=== PATIENT | male | born 1960 | race Hispanic/Latino ===

== ENCOUNTER 2017-08-20 18:28 | Emergency (ER) | payer MEDICAID ==
[2017-08-20 18:34] VITALS: BMI 40.3
[2017-08-20 18:42] VITALS: TEMP 98.3
--- NOTE | 2017-08-20 19:19 | ED PDOC ---
Arrival/HPI - General Chief Complaint: Seizure Time Seen by Provider: 08/20/17 18:30 Historian: Patient, EMS - History of Present Illness Narrative History of Present Illness (Text): 08/20/17 19:07 A 56 year old male brought into the emergency department by EMS for evaluation after possible seizure. Patient was pushing a grocery cart and fell to the floor yellowing for help. Patient was found unresponsive on the ground and bystanders witnessed tonic clonic activity. Upon EMS arrival, patient was no longer shaking but appeared altered. On evaluation, patient is alert and oriented times 3. He remembers being at the grocery store and then waking up with people surrounding him. Patient currently denies any pain or discomfort. Patient denies any fever, chills, nausea, vomiting, abdominal pain, urinary symptoms, chest pain, shortness of breath, cough, headache, dizziness, weakness or any other complaints. Time/Duration: Prior to Arrival Symptom Course: Resolved Quality: Other Context: Other Past Medical History - Provider Review Nursing Documentation Reviewed: Yes - Infectious Disease Hx of Infectious Diseases: None - Tetanus Immunization Tetanus Immunization: Unknown - Cardiac Hx Cardiac Disorders: Yes Hx Peripheral Edema: Yes - Pulmonary Hx Respiratory Disorders: No (pt denies) - Neurological Hx Neurological Disorder: No (pt denies) - HEENT Hx HEENT Disorder: No (pt denies) - Renal Hx Renal Disorder: No (pt denies) - Endocrine/Metabolic Hx Endocrine Disorders: No (pt denies) - Hematological/Oncological Hx Blood Disorders: No (pt denies) - Integumentary Hx Dermatological Disorder: Yes Hx Psoriasis: Yes - Musculoskeletal/Rheumatological Hx Musculoskeletal Disorders: No (pt denies) - Gastrointestinal Hx Gastrointestinal Disorders: No (pt denies) - Genitourinary/Gynecological Hx Genitourinary Disorders: No (pt denies) - Psychiatric Hx Psychophysiologic Disorder: No (pt denies) Hx Depression: No Hx Emotional Abuse: No Hx Physical Abuse: No Hx Substance Use: No - Past Surgical History Past Surgical History: No Previous - Suicidal Assessment Feels Threatened In Home Enviroment: No Family/Social History - Physician Review Nursing Documentation Reviewed: Yes Family/Social History: No Known Family HX Smoking Status: Never Smoked Hx Alcohol Use: No Hx Substance Use: No Hx Substance Use Treatment: No Allergies/Home Meds Allergies/Adverse Reactions: Allergies No Known Allergies Allergy (Verified 08/20/17 18:33) Home Medications: Home Meds Medication Instructions Recorded Confirmed No Known Home Med 09/01/12 08/20/17 Review of Systems - Physician Review All systems were reviewed & negative as marked: Yes - Review of Systems Constitutional: absent: Fevers, Night Sweats Respiratory: absent: SOB, Cough Cardiovascular: absent: Chest Pain Gastrointestinal: absent: Abdominal Pain, Nausea, Vomiting Genitourinary Male: absent: Dysuria, Frequency, Hematuria Neurological: Seizure. absent: Headache, Dizziness, Focal Weakness Physical Exam Vital Signs Reviewed: Yes Vital Signs Temp Pulse Resp BP Pulse Ox 08/20/17 18:40 98.3 F 123 H 16 187/99 H 95 Temperature: Afebrile Blood Pressure: Hypertensive Pulse: Tachycardic Respiratory Rate: Normal Appearance: Positive for: Well-Appearing, Non-Toxic, Comfortable Pain Distress: None Mental Status: Positive for: Alert and Oriented X 3 Finger Stick Blood Glucose: 124 - Systems Exam Head: Present: Atraumatic, Normocephalic Pupils: Present: Other (Decrease vision in left eye) Extroacular Muscles: Present: EOMI Conjunctiva: Present: Normal Mouth: Present: Moist Mucous Membranes Neck: Present: Normal Range of Motion Respiratory/Chest: Present: Clear to Auscultation, Good Air Exchange. No: Respiratory Distress, Accessory Muscle Use Cardiovascular: Present: Regular Rate and Rhythm, Normal S1, S2. No: Murmurs Abdomen: Present: Normal Bowel Sounds. No: Tenderness, Distention, Peritoneal Signs Back: Present: Normal Inspection Upper Extremity: Present: Normal Inspection. No: Cyanosis, Edema Lower Extremity: Present: NORMAL PULSES, Other (Chronic lymphedematous venous stasis changes in LLE; venous stasis changes RLE). No: CALF TENDERNESS Neurological: Present: GCS=15, CN II-XII Intact, Speech Normal, Motor Func Grossly Intact, Normal Sensory Function, Normal Cerebellar Funct Skin: Present: Warm, Dry, Normal Color. No: Rashes Psychiatric: Present: Alert, Oriented x 3, Normal Insight, Normal Concentration Medical Decision Making ED Course and Treatment: 08/20/17 19:07 Impression: A 56 year old male brought in after possible seizure. Patient denies any complaints at this time. Plan: -- Head CT -- Duplex lower extremity ultrasound -- Chest xray -- Labs -- Urinalysis -- Reassess and disposition Progress Notes: 08/20/17 20:12 Spoke with radiologist, states ultrasound is negative for DVT. 08/20/17 21:47 Patient with syncope vs new onset seizure. Patient was adamantly refusing brain CT and CXR and any further treatment and workup in the ED. His labs show a AG metabolic acidosis with renal insufficiency, suggestive of possible seizure , which for him would be new onset or possible other cause. He is refusing any additional workup or treatment and is insistent to leave the emergency department at this time. His current vitals are normal. He is fully awake, alert, and oriented x 3 and fully understands the consequences of leaving against medical advice, including and permanent disability. He signed the ama sheet. - Lab Interpretations Lab Results: 08/20/17 18:50 08/20/17 18:50 Lab Results 08/20/17 20:58: PT 13.7 H, INR 1.25 H, APTT 31.3 08/20/17 18:50: Alcohol, Quantitative < 10 08/20/17 18:50: Sodium 142, Potassium 4.0, Chloride 107, Carbon Dioxide 14 L, Anion Gap 25 H, BUN 35 H, Creatinine 1.6 H, Est GFR ( Amer) 54, Est GFR ( Non-Af Amer) 45, Random Glucose 138 H, Calcium 9.1, Magnesium 2.3 H, Total Bilirubin 0.9, AST 66 H, ALT 47, Alkaline Phosphatase 165 H, Lactate Dehydrogenase 629, Total Creatine Kinase 229, Troponin I 0.01, Total Protein 9.6 H, Albumin 4.1, Globulin 5.4, Albumin/Globulin Ratio 0.8 L, Lipase 98 08/20/17 18:50: WBC 11.0, RBC 4.60, Hgb 16.0, Hct 46.6, MCV 101.3, MCH 34.8, MCHC 34.3, RDW 14.1, Plt Count 300, MPV 10.6, Gran % 59.5, Lymph % (Auto) 27.5, Nobles % (Auto) 12.1 H, Eos % (Auto) 0.6 L, Baso % (Auto) 0.3, Gran # 6.54 H, Lymph # 3.0, Nobles # 1.3 H, Eos # 0.1, Baso # 0.03 I have reviewed the lab results: Yes - RAD Interpretation Radiology Orders: 08/20/17 19:05 DUPLEX LOWER EXTRM VEIN BILAT [US] Stat - Medication Orders Current Medication Orders: Discontinued Medications Sodium Chloride (Sodium Chloride 0.9%) 1,000 mls @ 999 mls/hr IV .Q1H1M STA Stop: 08/20/17 20:51 Last Admin: 08/20/17 21:19 Dose: 999 mls/hr eMAR Start Stop Document 08/20/17 21:19 SS (Rec: 08/20/17 21:20 SS [id number]) Intravenous Solution Start Date 08/20/17 Start Time 21:19 End Date 08/20/17 End time 22:19 Total Infusion Time 60 - Scribe Statement The provider has reviewed the documentation as recorded by the Felisaibpriscilla Ware Provider Scribe Attestation: All medical record entries made by the Scribe were at my direction and personally dictated by me. I have reviewed the chart and agree that the record accurately reflects my personal performance of the history, physical exam, medical decision making, and the department course for this patient. I have also personally directed, reviewed, and agree with the discharge instructions and disposition. Disposition/Present on Arrival - Present on Arrival Any Indicators Present on Arrival: No History of DVT/PE: No History of Uncontrolled Diabetes: No Urinary Catheter: No History of Decub. Ulcer: No History Surgical Site Infection Following: None - Disposition Have Diagnosis and Disposition been Completed?: Yes Diagnosis: Syncope, Seizure, Renal insufficiency Disposition: AGAINST MEDICAL ADVICE Disposition Time: 22:00 Patient Plan: Other (against medical advice) Patient Problems: Current Active Problems Problem Status Onset Renal insufficiency Acute Seizure Acute Syncope Acute Condition: STABLE Discharge Instructions (ExitCare): Syncope (ED), Impaired Kidney Function (ED) , New-Onset Seizure in Adults (ED) Additional Instructions: You are leaving against medical advice. You may return to the emergency department at any time. If you choose not to do so, then follow up with primary care as soon as possible. Ref[place]: [facility] [place] - Follow up with primary Forms: [employer] (Swedish)
[2017-08-20 19:36] LABS: ALB/GLOB RATIO 0.8 (1.1-1.8); BILIRUBIN,TOTAL 0.9 mg/dL (0.2-1.3); CALCIUM 9.1 mg/dL (8.4-10.5); MAGNESIUM 2.3 mg/dL (1.7-2.2); TOTAL PROTEIN 9.6 g/dL (5.8-8.3)
[2017-08-20 19:50] LABS: BASO # 0.03 K/mm3 (0.0-2.0); BASO % 0.3 % (0.0-3.0); EOS # 0.1 (0.0-0.7); EOS % 0.6 % (1.5-5.0); GRAN # 6.54 (1.4-6.5); GRAN % 59.5 % (50.0-68.0); HEMATOCRIT 46.6 % (42.0-52.0); LYMPH % 27.5 % (22.0-35.0); MEAN CELL VOLUME 101.3 fl (80.0-105.0); MEAN CORPUSCULAR HEMOGLOBIN 34.8 pg (25.0-35.0); MEAN CORPUSCULAR HGB CONC 34.3 g/dl (31.0-37.0); MEAN PLATELET VOLUME 10.6 fl (7.0-11.0); MONO # 1.3 (0.1-0.6); MONO % 12.1 % (1.0-6.0); RED CELL DISTRIBUTION WIDTH 14.1 % (11.5-14.5)
[2017-08-20 19:57] LABS: TROPONIN I 0.01 ng/mL
[2017-08-20] MEDS: Sodium Chloride 0.9% 1,000 ML IV STA ×2 (21:06→21:19)
[2017-08-20 21:17] LABS: INR 1.25 (0.93-1.08); PARTIAL THROMBOPLASTIN TIME 31.3 Seconds (25.1-36.5)
[2017-08-20 22:26] LABS: URINE BILIRUBIN NEGATIVE (NEGATIVE); URINE BLOOD TRACE-INTACT (NEGATIVE); URINE GLUCOSE (UA) NEGATIVE (NEGATIVE); URINE KETONE NEGATIVE (NEGATIVE); URINE LEUKOCYTE ESTERASE NEGATIVE Leu/uL (NEGATIVE); URINE PROTEIN TRACE mg/dL (<30 mg/dL); URINE UROBILINOGEN 0.2 E.U./dL (<1 E.U./dL)
[2017-08-20 22:29] LABS: URINE APPEARANCE CLEAR (CLEAR); URINE COLOR YELLOW (YELLOW)
[2017-08-20 22:38] LABS: URINE BACTERIA MOD (NEG)
[2017-08-20 22:52] VITALS: BP 146/80; PULSE 82; RESP 18; O2SAT 96
--- NOTE | 2017-08-21 10:51 | CARD ---
APPROVED REPORT EKG Measurement Heart [id number] <Conclusion> Sinus tachycardia Incomplete right bundle branch block Cannot rule out Inferior infarct, age undetermined NSSSTW changes Prolonged QTc
--- NOTE | 2017-08-21 17:46 | US ---
HISTORY: Leg pain and swelling. Evaluate for DVT PHYSICIAN(S): Joey Rubin MD. TECHNIQUE: Duplex sonography and color-flow Doppler with graded compression were used to evaluate the deep venous systems of both lower extremities. The exam is limited by edema. FINDINGS: The visualized deep venous systems of both lower extremities are sonographically normal and compressible. Normal wave forms and augmentation are seen. There is no sonographic evidence for deep venous thrombosis in the visualized segments of both lower extremities. IMPRESSION: No sonographic evidence for deep venous thrombosis in the visualized segments of both lower extremities.
== END 2017-08-20 23:00 | disposition left against medical advice (07) ==
LOC: ED 18:28
DX: R56.9 Unspecified convulsions (principal); N28.9 Disorder of kidney and ureter, unspecified; R55 Syncope and collapse
CPT/HCPCS: 80053; 80320; 80324; 80345; 80346; 80349; 80353; 80358; 80361; 81001; 82550; 83615; 83690; 83735; 83992; 84484; 85025; 85610; 85730; 93005; 93970; 96360; 99285; J7040

== ENCOUNTER 2019-01-21 11:53 | Inpatient (IN) | payer MEDICAID ==
[2019-01-21 11:55] VITALS: BMI 40.3
--- NOTE | 2019-01-21 13:41 | ED PDOC ---
Arrival/HPI - General Chief Complaint: Seizure Time Seen by Provider: 01/21/19 12:09 Historian: Patient, Family - History of Present Illness Narrative History of Present Illness (Text): 01/21/19 13:20 58 year old male, with past medical history of seizure (non-compliant with medication), presents to the ED accompanied by family for medical evaluation s/p witnessed seizure at home prior to arrival. As per brother, patient was sitting in a chair when he began convulsing for 3-4 minutes causing him to fall from the chair. Brother denies any head injury or loss of consciousness. Patient presented post-ictal state following the episode but is currently at baseline as per family. At bedside, patient denies any medical complaints and does not provide any reason for non-compliance with his seizure medication. Patient denies any fever, chest pain, shortness of breath, headache, dizziness or any other complaints. Time/Duration: Prior to Arrival Symptom Onset: Sudden Symptom Course: Resolved Activities at Onset: Light Context: Home Past Medical History - Provider Review Nursing Documentation Reviewed: Yes - Infectious Disease Hx of Infectious Diseases: None - Tetanus Immunization Tetanus Immunization: Unknown - Cardiac Hx Cardiac Disorders: Yes Hx Peripheral Edema: Yes - Pulmonary Hx Respiratory Disorders: No (pt denies) - Neurological Hx Neurological Disorder: No (pt denies) Hx Seizures: Yes - HEENT Hx HEENT Disorder: No (pt denies) - Renal Hx Renal Disorder: No (pt denies) - Endocrine/Metabolic Hx Endocrine Disorders: No (pt denies) - Hematological/Oncological Hx Blood Disorders: No (pt denies) - Integumentary Hx Dermatological Disorder: Yes Hx Psoriasis: Yes - Musculoskeletal/Rheumatological Hx Musculoskeletal Disorders: No (pt denies) - Gastrointestinal Hx Gastrointestinal Disorders: No (pt denies) - Genitourinary/Gynecological Hx Genitourinary Disorders: No (pt denies) - Psychiatric Hx Depression: No Hx Emotional Abuse: No Hx Physical Abuse: No Hx Schizophrenia: Yes Hx Substance Use: No - Past Surgical History Past Surgical History: No Previous - Anesthesia Hx Anesthesia: No - Suicidal Assessment Feels Threatened In Home Enviroment: No Family/Social History - Physician Review Nursing Documentation Reviewed: Yes Family/Social History: No Known Family HX Smoking Status: Never Smoked Hx Alcohol Use: No Hx Substance Use: No Hx Substance Use Treatment: No Allergies/Home Meds Allergies/Adverse Reactions: Allergies No Known Allergies Allergy (Verified 01/21/19 12:07) Home Medications: Home Meds Medication Instructions Recorded Confirmed No Known Home Med 09/01/12 01/21/19 Review of Systems - Physician Review All systems were reviewed & negative as marked: Yes - Review of Systems Constitutional: absent: Fevers Respiratory: absent: SOB, Cough Cardiovascular: absent: Chest Pain Gastrointestinal: absent: Abdominal Pain, Diarrhea, Nausea, Vomiting Genitourinary Male: absent: Dysuria, Urinary Output Changes Musculoskeletal: absent: Back Pain, Neck Pain Neurological: Seizure. absent: Headache, Dizziness Endocrine: absent: Diaphoresis Physical Exam - Physical Exam Narrative Physical Exam (Text): 01/21/19 13:42 Gen: VS reviewed, alert, dishevelled, mild distress. ENT: normal pharynx. Eye: EOMI, PERRL. Neck: no JVD, supple, no adenopathy. CV: regular rate, regular rhythm, no rubs, no murmur, no gallops, S1, S2, pulses equal and strong. Pulm: no distress, clear to auscultation, no wheeze, no rhonchi, breath sounds equal, no rales. Abd: soft, nontender, no guarding, no rebound, no rigidity, normal bowel sounds. Ext: Chronic lymphedema bilateral lower extremity with scales , underlying redness and foul odor from the area. Skin: Chronic lymphedema bilateral lower extremity. Psych: responds appropriately to questions, normal affect. Neuro: oriented x 3, CN2-12 intact grossly, motor intact, sensation intact. Vital Signs Reviewed: Yes Vital Signs Temp Pulse Resp BP Pulse Ox 01/21/19 11:55 98 F 113 H 18 162/61 H 94 L Temperature: Afebrile Blood Pressure: Hypertensive Pulse: Tachycardic Respiratory Rate: Normal Appearance: Positive for: Well-Appearing, Non-Toxic, Comfortable Pain Distress: None Mental Status: Positive for: Alert and Oriented X 3 Medical Decision Making ED Course and Treatment: 01/21/19 13:38 Impression: 58 year old male presents to the ED for evaluation s/p seizure. Plan: -- Labs -- Reassess and disposition Prior Visits: Notes and results from previous visits were reviewed. Progress Notes: 01/21/19 13:[address] Duque, who is aware and will evaluate patient for consultation. 01/21/19 17:[address] loo to the hospitalist service. patient to be admitted for bilateral lower extremity cellulitis. patient also presented with a breakthrough seizure, likely from not taking medications (which was confirmed by family at bedside). patient was seen in the ED by dr. sanders and agreed that the patient lacks mental capacity to make informed medical decisions. the patient did not want o stay in the hospital, he did not provide good reasoning for his request, and this contradicts the patient's severe underlying illness that requires acute inpt tx. - EKG Interpretation EKG Interpretation (Text): 01/21/19 17:21 ekg my read: sinus tach at 107 bpm, nml qrs, nml axis, no acute sttw abn Interpreted by ED Physician: Yes - Scribe Statement The provider has reviewed the documentation as recorded by the Scribe Edd Wolfe. All medical record entries made by the Scribe were at my direction and personally dictated by me. I have reviewed the chart and agree that the record accurately reflects my personal performance of the history, physical exam, medical decision making, and the department course for this patient. I have also personally directed, reviewed, and agree with the discharge instructions and disposition. Disposition/Present on Arrival - Present on Arrival Any Indicators Present on Arrival: No History of DVT/PE: No History of Uncontrolled Diabetes: No Urinary Catheter: No History of Decub. Ulcer: No History Surgical Site Infection Following: None - Disposition Have Diagnosis and Disposition been Completed?: Yes Diagnosis: Cellulitis Disposition: HOSPITALIZED Disposition Time: 17:45 Patient Problems: Current Active Problems Problem Status Onset Cellulitis Acute Condition: GUARDED
[2019-01-21] MEDS ORDERED: Vancomycin 500 mg Inj IVPB STA (14:31)
[2019-01-21] MEDS ORDERED: Piperacillin/Tazobact 3.375 gm 100 ML IVPB STA (14:31)
[2019-01-21] MEDS ORDERED: Vancomycin 1.75 GM in Sodium Chloride 0.9% 500 ML IVPB ONE (14:45)
[2019-01-21 14:59] LABS: BASO # 0.05 K/mm3 (0.0-2.0); BASO % 0.5 % (0.0-3.0); EOS # 0.9 (0.0-0.7); EOS % 7.9 % (1.5-5.0); HEMOGLOBIN 13.8 g/dL (14.0-18.0); LYMPH # 3.4 (1.2-3.4); LYMPH % 31.1 % (22.0-35.0); MEAN CELL VOLUME 96.1 fl (80.0-105.0); MEAN CORPUSCULAR HEMOGLOBIN 31.8 pg (25.0-35.0); MEAN CORPUSCULAR HGB CONC 33.1 g/dl (31.0-37.0); MEAN PLATELET VOLUME 9.9 fl (7.0-11.0); MONO # 1.1 (0.1-0.6); MONO % 10.5 % (1.0-6.0); RBC 4.34 10^6/uL (3.5-6.1); RED CELL DISTRIBUTION WIDTH 15.9 % (11.5-14.5); WHITE BLOOD COUNT 10.8 10^3/uL (4.5-11.0)
[2019-01-21 15:33] LABS: ALB/GLOB RATIO 0.6 (1.1-1.8); ALBUMIN 3.2 g/dL (3.0-4.8); ALT/SGPT 13 U/L (7-56); AST/SGOT 29 U/L (17-59); BLOOD UREA NITROGEN 45 mg/dL (7-21); CALCIUM 8.8 mg/dL (8.4-10.5); GFR NON-AFRICAN AMERICAN > 60
[2019-01-21 17:55] LABS: BARBITURATES, UR NEGATIVE (NEGATIVE); BENZODIAZEPINES, UR NEGATIVE (NEGATIVE); OPIATES, UR NEGATIVE (NEGATIVE); PHENCYCLIDINE, UR NEGATIVE (NEGATIVE)
--- NOTE | 2019-01-21 18:50 | CON ---
DATE OF CONSULTATION: 01/21/2019 HISTORY OF PRESENT ILLNESS: In short, the patient is a 58-year-old male with not known previous psychiatric history, questionable history of schizophrenia. The patient was brought in by EMS after the patient's family called 911 because the patient had some seizure activities. During the emergency room evaluation, the patient was found to have severe lower extremity cellulitis, which required medical admission, but the patient refused to stay in the hospital. Medical team called this policy writer for evaluation of the capacity to leave against medical advice. This policy writer had a prolonged conversation with Dr. Callejas in the emergency room. Also, the patient's family next to the patient is expressing highest concerns about the patient's safety. Going back to the patient's presentation, the patient was seen and examined. The patient presented to be disheveled, poor personal hygiene, very strong body odor. On top of that, the patient has multiple wounds and seborrhea in lower extremities and pus coming out, which smells horrible. The patient was alert, oriented x3. The patient had intense eye contact. The patient seems to be a poor and unreliable historian and appears to be guarded and paranoid. The patient reported that he came to the hospital because of some seizure activities. The patient denied that he has history of seizure, and the patient reported that after drinking coffee or eating certain foods, he could have seizures. The patient reported that he was not taking any medication for seizures. In regard of his lower extremities, the patient said that he has seen ship propeller finisher a few days ago, and he is willing to take antibiotics by mouth, but he does not want to stay in the hospital. On questioning what was his reason for refusing to stay in the hospital, the patient said, "isn't it my right, I am willing to take my medications, but I am not willing to stay in the hospital." Based on information from the medical team, there is no option to provide the patient with oral antibiotics, and the patient required admission for intravenous antibiotics. The patient was not able to comprehend this plan. The patient was repeating himself that this is his right to sign against medical advice. After detailed explanation of rationale of the decision and risk of sepsis as well as sudden explained to the patient, the patient still was insisting that he does not want to stay in the hospital. The patient obviously lacks rational decision making at this point. The patient also was not able to understand factual diagnosis, potential risk of leaving against medical advice, and consequences without the treatment. The patient was repeating "I will be alright, I will be alright." The patient has very poor insight and no appreciation. The patient was able to indicate his preferences. The patient reported that he wants to go back home and follow up as outpatient, but it does not seem to be very rational at this point. The patient's family, the patient's brother as well as sister, Mary Gordillo as well as Hasmukh Gordillo, are next to the patient. The patient did not give permission this policy writer to disclose any information about the patient, but the patient's family expressed highest concerns about the patient's safety. As per family, the patient was diagnosed with schizophrenia and was hospitalized into the psychiatric inpatient unit about 20 years ago. The patient was functioning relatively fine, but recently he was refusing any care and refusing to go to the medical doctors as well as [facility], and it took awhile for family to convince the patient to go to [facility], but the patient is not compliant with recommendations and treatment. At this point, the patient's family is very concerned about the patient. Also, the patient was saying that he does not care if he is alive or he is . The patient is not on any psychotropic medications at present moment, and functionality is very questionable. The patient is not bathing for many days and has very strong body odor. PHYSICAL EXAMINATION: VITAL SIGNS: At this point, this policy writer reviewed vital signs, seemed to be stable, but the patient is tachycardic. Temperature is 98, pulse is 105, blood pressure 147/82, respirations 18, oxygen saturation is 95. MEDICATIONS: Reviewed. The patient is on vancomycin IV. LABORATORY DATA: Labs reviewed. The patient has hemoglobin and hematocrit of 13.8 and 41.7. Chemistry reviewed. Microbiology reviewed. MENTAL STATUS EXAMINATION: The patient presented to be alert, oriented x3, very poor personal hygiene, very strong body odor. Intense eye contact. Speech was underproductive, was giving "yes-no" answers. The patient appears to be guarded, paranoid, and reluctant to provide any information. Mood described as "fine". Affect was flat. Thought process seems to be concrete. Thought content, the patient denied hearing voices, denied seeing things. Denied paranoid ideation, but the patient appears to be guarded and paranoid. Insight and judgment seemed to be very limited. Impulses are unpredictable. IMPRESSION: As per history, schizophrenia. At present moment, the patient has severe lower extremity cellulitis, history of ?seizure disorder. PLAN: Based on all the above, the patient lacks capacity of understanding factual diagnosis, treatment, potential risk and consequences of leaving against medical advice. Insight and appreciation are lacking, reasoning ability is very poor. The patient was able to indicate the preferences which are not rationale at this point. The patient lacks decision making capacity of leaving against medical advice. Medical team was advised to admit the patient and treat accordingly. Meanwhile, this policy writer could be involved into the patient's care as a packaging sales consultant, but this is up to the medical team. Should you have any questions give me a call back. Thank you very much for letting me participate in care of your patient. Care of the patient took more than 30 minutes of this policy writer's time. Odilia Duque MD [facility]
--- NOTE | 2019-01-21 18:50 | RAD ---
Date of service: 01/21/2019 PROCEDURE: Radiographs of the right tibia and fibula. HISTORY: cellulitis, subcutaneous air? COMPARISON: None available TECHNIQUE: Frontal and lateral views obtained. 2 views obtained. FINDINGS: BONES: Degenerative changes right knee are incompletely visualized. JOINT SPACES: Unremarkable. OTHER FINDINGS: Radiographic manifestations of cellulitis distally. Diffuse calf edema noted. No visible air within soft tissues. IMPRESSION: Soft tissue swelling without acute articular or osseous abnormality.
--- NOTE | 2019-01-21 18:51 | RAD ---
Date of service: 01/21/2019 PROCEDURE: Radiographs of the left tibia and fibula. HISTORY: cellulitis, subcutaneous air? COMPARISON: None available. TECHNIQUE: Frontal and lateral views obtained. 2 views obtained. FINDINGS: BONES: No radiographic manifestations of acute osteomyelitis. JOINT SPACES: Unremarkable. OTHER FINDINGS: Diffuse lower extremity soft tissue swelling. Evidence of ulceration distally. No adjacent bony abnormalities. The findings are medial and posterior. No visible subcutaneous air. IMPRESSION: Soft tissue swelling without acute articular or osseous abnormality.
--- NOTE | 2019-01-21 18:56 | CP.PCM.HP ---
<Elder Morton - Last Filed: 01/21/19 18:49> History of Present Illness - History of Present Illness History of Present Illness: Elder Morton, PGY1 Medicine H&P for Dr. Barger cc: "witnessed seizure" Patient is a 58 year old male with past medical history of schizophrenia, seizure (non-compliant with medication), psoriasis, umbilical hernia, obesity presents to the ED accompanied by family for medical evaluation s/p witnessed seizure at home prior to arrival. As per family, patient was convulsing for 3-5 minutes while he was sitting in chair, he then fell. There was no injury to head or loss of consciousness as per family. Patient initially presented post-ictal in the ED. As per family, he is currently at baseline. Patient is a poor historian. History was mainly obtained from family members at bedside. Patient denies cp, sob, nausea, vomiting, diarrhea. A full 12 point ROS was conducted and unremarkable except as stated above. PMD: none PMHx: schizophrenia, seizure (non-compliant with medication), psoriasis, umbilical hernia, obesity PSHx: denies Meds: none Allergies: NKDA SocialHx: denies smoking, drinking, drug use. FamHx: non-contributory Present on Admission - Present on Admission Any Indicators Present on Admission: No Review of Systems - Review of Systems All systems: reviewed and no additional remarkable complaints except (as per HPI) Past Patient History - Infectious Disease Hx of Infectious Diseases: None - Tetanus Immunizations Tetanus Immunization: Unknown - Past Social History Smoking Status: Never Smoked - CARDIAC Hx Cardiac Disorders: Yes Hx Peripheral Edema: Yes - PULMONARY Hx Respiratory Disorders: No (pt denies) - NEUROLOGICAL Hx Neurological Disorder: No (pt denies) Hx Seizures: Yes - HEENT Hx HEENT Problems: No (pt denies) - RENAL Hx Chronic Kidney Disease: No (pt denies) - ENDOCRINE/METABOLIC Hx Endocrine Disorders: No (pt denies) - HEMATOLOGICAL/ONCOLOGICAL Hx Blood Disorders: No (pt denies) - INTEGUMENTARY Hx Dermatological Problems: Yes Hx Psoriasis: Yes - MUSCULOSKELETAL/RHEUMATOLOGICAL Hx Musculoskeletal Disorders: No (pt denies) - GASTROINTESTINAL Hx Gastrointestinal Disorders: No (pt denies) - GENITOURINARY/GYNECOLOGICAL Hx Genitourinary Disorders: No (pt denies) - PSYCHIATRIC Hx Depression: No Hx Emotional Abuse: No Hx Physical Abuse: No Hx Schizophrenia: Yes Hx Substance Use: No - SURGICAL HISTORY Hx Surgeries: No (pt denies) - ANESTHESIA Hx Anesthesia: No Meds Allergies/Adverse Reactions: Allergies Allergy/AdvReac Type Severity Reaction Status Date / Time No Known Allergies Allergy Verified 01/21/19 12:07 Physical Exam - Constitutional Appears: No Acute Distress - Head Exam Head Exam: ATRAUMATIC, NORMAL INSPECTION, NORMOCEPHALIC - Eye Exam Eye Exam: PERRL. absent: Normal appearance Additional comments: Chronic lazy eye - ENT Exam ENT Exam: Mucous Membranes Moist - Respiratory Exam Respiratory Exam: Clear to Auscultation Bilateral, NORMAL BREATHING PATTERN. absent: Rales, Rhonchi, Wheezes - Cardiovascular Exam Cardiovascular Exam: REGULAR RHYTHM, +S1, +S2 - GI/Abdominal Exam GI & Abdominal Exam: Normal Bowel Sounds, Soft. absent: Tenderness Additional comments: Umbilical hernia - Extremities Exam Extremities exam: Positive for: pedal pulses present (Diminished). Negative for: normal capillary refill Additional comments: Severe scaly bilateral LE dermatitis. Open ulcerations in both lower legs. Dressing in place. - Neurological Exam Neurological exam: Alert, CN II-XII Intact, Oriented x3 - Psychiatric Exam Psychiatric exam: Normal Affect, Normal Mood Additional comments: Patient does not have full capacity. - Skin Additional comments: Severe scaly dermatitis in bilateral lower extremities. Open ulcers present in lower extremities b/l. Evidence of psoriatic lesions. Results - Vital Signs Recent Vital Signs: Last Vital Signs Temp 98.3 F 01/21/19 18:17 Pulse 102 H 01/21/19 18:17 Resp 17 01/21/19 18:17 BP 148/81 01/21/19 18:17 Pulse Ox 95 01/21/19 18:17 - Labs Result Diagrams: 01/21/19 14:40 01/21/19 15:00 Labs: Laboratory Results - last 24 hr 01/21/19 01/21/19 01/21/19 14:40 15:00 15:00 WBC 10.8 RBC 4.34 Hgb 13.8 L D Hct 41.7 L MCV 96.1 D MCH 31.8 MCHC 33.1 RDW 15.9 H Plt Count 454 H MPV 9.9 Neut % (Auto) 50.0 Lymph % (Auto) 31.1 [place] % (Auto) 10.5 H Eos % (Auto) 7.9 H Baso % (Auto) 0.5 Lymph # (Auto) 3.4 [place] # (Auto) 1.1 H Eos # (Auto) 0.9 H Baso # (Auto) 0.05 Absolute Neuts (auto) 5.39 Sodium 141 Potassium 4.0 Chloride 110 H Carbon Dioxide 21 Anion Gap 14 BUN 45 H Creatinine 1.2 Est GFR ( Amer) > 60 Est GFR (Non-Af Amer) > 60 Random Glucose 111 H Calcium 8.8 Magnesium 2.2 Total Bilirubin 0.1 L AST 29 ALT 13 Alkaline Phosphatase 147 H Total Creatine Kinase 41 Total Protein 9.0 H Albumin 3.2 Globulin 5.7 Albumin/Globulin Ratio 0.6 L Urine Opiates Screen Urine Methadone Screen Ur Barbiturates Screen Ur Phencyclidine Scrn Ur Amphetamines Screen U Benzodiazepines Scrn U Oth Cocaine Metabols U Cannabinoids Screen Alcohol, Quantitative < 10 01/21/19 17:21 WBC RBC Hgb Hct MCV MCH MCHC RDW Plt Count MPV Neut % (Auto) Lymph % (Auto) [place] % (Auto) Eos % (Auto) Baso % (Auto) Lymph # (Auto) [place] # (Auto) Eos # (Auto) Baso # (Auto) Absolute Neuts (auto) Sodium Potassium Chloride Carbon Dioxide Anion Gap BUN Creatinine Est GFR ( Amer) Est GFR (Non-Af Amer) Random Glucose Calcium Magnesium Total Bilirubin AST ALT Alkaline Phosphatase Total Creatine Kinase Total Protein Albumin Globulin Albumin/Globulin Ratio Urine Opiates Screen Negative Urine Methadone Screen Negative Ur Barbiturates Screen Negative Ur Phencyclidine Scrn Negative Ur Amphetamines Screen Negative U Benzodiazepines Scrn Negative U Oth Cocaine Metabols Negative U Cannabinoids Screen Negative Alcohol, Quantitative Assessment & Plan - Assessment and Plan (Free Text) Assessment: Patient is a 58 year old male with past medical history of schizophrenia, seizure (non-compliant with medication), psoriasis, umbilical hernia, obesity presents to the ED accompanied by family for medical evaluation s/p witnessed seizure at home prior to arrival. Patient admitted for Seizures and Bilateral Lower Extremity Cellulitis and Ulcerations. Plan: Seizure - Patient refused Head CT - Ativan 2mg q4 prn - neurochecks - seizure precautions - aspiration precautions - Neurology on consult (Dr. Turner) - Urine drug screen negative - EtOH level negative Bilateral Lower Extremity Cellulitis/Ulcerations - r/o osteo - tibula/fibula XR bilateral - left and right foot XR - LE venous doppler - LE arterial doppler - vanco and zosyn for broad spectrum coverage - f/u blood cx - Podiatry on consult (Dr. Hernandez) - ID on consult (Dr. Orona) Schizophrenia - Psych is on consult (Dr. Hartley) - Patient wants to AMA but lacks capacity DVT ppx: hep sc GI ppx: not indicated Diet: Regular Dispo: Patient will be monitored on remote telemetry. Case was discussed and reviewed with Attending Physician, Dr. Barger <Agustin Barger - Last Filed: 01/22/19 07:53> Results - Vital Signs Recent Vital Signs: Last Vital Signs Temp 98.3 F 01/21/19 18:17 Pulse 74 01/22/19 06:00 Resp 12 01/21/19 18:50 BP 148/81 01/21/19 18:17 Pulse Ox 95 01/21/19 18:17 - Labs Result Diagrams: 01/22/19 06:25 01/22/19 06:25 Labs: Laboratory Results - last 24 hr 01/21/19 01/21/19 01/21/19 14:40 15:00 15:00 WBC 10.8 RBC 4.34 Hgb 13.8 L D Hct 41.7 L MCV 96.1 D MCH 31.8 MCHC 33.1 RDW 15.9 H Plt Count 454 H MPV 9.9 Neut % (Auto) 50.0 Lymph % (Auto) 31.1 [place] % (Auto) 10.5 H Eos % (Auto) 7.9 H Baso % (Auto) 0.5 Lymph # (Auto) 3.4 [place] # (Auto) 1.1 H Eos # (Auto) 0.9 H Baso # (Auto) 0.05 Absolute Neuts (auto) 5.39 ESR Sodium 141 Potassium 4.0 Chloride 110 H Carbon Dioxide 21 Anion Gap 14 BUN 45 H Creatinine 1.2 Est GFR ( Amer) > 60 Est GFR (Non-Af Amer) > 60 Random Glucose 111 H Calcium 8.8 Magnesium 2.2 Total Bilirubin 0.1 L AST 29 ALT 13 Alkaline Phosphatase 147 H Total Creatine Kinase 41 C-Reactive Protein Total Protein 9.0 H Albumin 3.2 Globulin 5.7 Albumin/Globulin Ratio 0.6 L Urine Opiates Screen Urine Methadone Screen Ur Barbiturates Screen Ur Phencyclidine Scrn Ur Amphetamines Screen U Benzodiazepines Scrn U Oth Cocaine Metabols U Cannabinoids Screen Alcohol, Quantitative < 10 01/21/19 01/21/19 01/21/19 15:00 15:00 17:21 WBC RBC Hgb Hct MCV MCH MCHC RDW Plt Count MPV Neut % (Auto) Lymph % (Auto) [place] % (Auto) Eos % (Auto) Baso % (Auto) Lymph # (Auto) [place] # (Auto) Eos # (Auto) Baso # (Auto) Absolute Neuts (auto) ESR 3 Sodium Potassium Chloride Carbon Dioxide Anion Gap BUN Creatinine Est GFR ( Amer) Est GFR (Non-Af Amer) Random Glucose Calcium Magnesium Total Bilirubin AST ALT Alkaline Phosphatase Total Creatine Kinase C-Reactive Protein 51.40 H Total Protein Albumin Globulin Albumin/Globulin Ratio Urine Opiates Screen Negative Urine Methadone Screen Negative Ur Barbiturates Screen Negative Ur Phencyclidine Scrn Negative Ur Amphetamines Screen Negative U Benzodiazepines Scrn Negative U Oth Cocaine Metabols Negative U Cannabinoids Screen Negative Alcohol, Quantitative 01/22/19 01/22/19 06:25 06:25 WBC 7.4 D RBC 4.01 Hgb 12.5 L Hct 38.3 L MCV 95.5 MCH 31.2 MCHC 32.6 RDW 16.1 H Plt Count 386 MPV 9.4 Neut % (Auto) 66.5 Lymph % (Auto) 18.2 L [place] % (Auto) 10.6 H Eos % (Auto) 4.3 Baso % (Auto) 0.4 Lymph # (Auto) 1.3 [place] # (Auto) 0.8 H Eos # (Auto) 0.3 Baso # (Auto) 0.03 Absolute Neuts (auto) 4.91 ESR Sodium 145 Potassium 3.7 Chloride 115 H Carbon Dioxide 23 Anion Gap 11 BUN 29 H Creatinine 1.1 Est GFR ( Amer) > 60 Est GFR (Non-Af Amer) > 60 Random Glucose 99 Calcium 8.6 Magnesium Total Bilirubin 0.3 AST 47 ALT 19 Alkaline Phosphatase 114 Total Creatine Kinase C-Reactive Protein Total Protein 8.3 Albumin 2.9 L Globulin 5.4 Albumin/Globulin Ratio 0.5 L Urine Opiates Screen Urine Methadone Screen Ur Barbiturates Screen Ur Phencyclidine Scrn Ur Amphetamines Screen U Benzodiazepines Scrn U Oth Cocaine Metabols U Cannabinoids Screen Alcohol, Quantitative Attending/Attestation - Attestation I have personally seen and examined this patient.: Yes I have fully participated in the care of the patient.: Yes I have reviewed all pertinent clinical information: Yes Notes (Text): 01/21/19 58 year old male with past medical history of schizophrenia, seizure, psoriasis and medication noncompliance who presents after witnessed seizure at home. Found also to have extensive bilateral lower extremity ulcerations and cellulitis overlying chronic chronic venous statis. ID/podiatry evaluations are requested. Bilateral tibula/fibula xrays showed soft tissue swelling. Feet xray and LE dopplers are ordered. Continue with iv antibiotics. Will follow up on cultures. Patient will also need neurology and psychiatry evaluation. He was seen by psychiatrist in ER for schizophrenia; at this time lacks decision making capacity 9f signing out against medical advice. CT head is ordered which he refused. UTox/ETOH levels were negative. Patient's siblings were also at bedside and questions were answered. Agustin Barger MD Hospitalist.
--- NOTE | 2019-01-21 20:06 | US ---
HISTORY: Leg pain and swelling. Evaluate for DVT PHYSICIAN(S): Joey Rubin MD. TECHNIQUE: Duplex sonography and color-flow Doppler with graded compression were used to evaluate the deep venous systems of both lower extremities. M is limited by body habitus and edema. The tibial veins are not well seen FINDINGS: The visualized deep venous systems of both lower extremities are sonographically normal and compressible. Normal wave forms and augmentation are seen. There is no sonographic evidence for deep venous thrombosis in the visualized segments of both lower extremities. IMPRESSION: No sonographic evidence for deep venous thrombosis in the visualized segments of both lower extremities.
[2019-01-21] MEDS ORDERED: Piperacillin/Tazobact 3.375 gm 100 ML IVPB SCH (22:00)
[2019-01-21] MEDS: Vancomycin 1gm in NS 250ml 1 GM/250 ML BAG IVPB SCH (23:23)
[2019-01-21] MEDS: Piperacillin/Tazobact 3.375 gm 100 ML IVPB SCH (23:26)
[2019-01-22] MEDS: Piperacillin/Tazobact 3.375 gm 100 ML IVPB SCH ×3 (05:13→22:29)
[2019-01-22 06:45] LABS: BASO # 0.03 K/mm3 (0.0-2.0); BASO % 0.4 % (0.0-3.0); EOS # 0.3 (0.0-0.7); EOS % 4.3 % (1.5-5.0); HEMOGLOBIN 12.5 g/dL (14.0-18.0); LYMPH # 1.3 (1.2-3.4); LYMPH % 18.2 % (22.0-35.0); MEAN CELL VOLUME 95.5 fl (80.0-105.0); MEAN CORPUSCULAR HEMOGLOBIN 31.2 pg (25.0-35.0); MEAN CORPUSCULAR HGB CONC 32.6 g/dl (31.0-37.0); MEAN PLATELET VOLUME 9.4 fl (7.0-11.0); MONO # 0.8 (0.1-0.6); MONO % 10.6 % (1.0-6.0); RBC 4.01 10^6/uL (3.5-6.1); RED CELL DISTRIBUTION WIDTH 16.1 % (11.5-14.5); WHITE BLOOD COUNT 7.4 10^3/uL (4.5-11.0)
[2019-01-22 07:33] LABS: ALB/GLOB RATIO 0.5 (1.1-1.8); ALBUMIN 2.9 g/dL (3.0-4.8); ALT/SGPT 19 U/L (7-56); AST/SGOT 47 U/L (17-59); BLOOD UREA NITROGEN 29 mg/dL (7-21); CALCIUM 8.6 mg/dL (8.4-10.5); GFR NON-AFRICAN AMERICAN > 60
--- NOTE | 2019-01-22 08:44 | CP.PCM.PN ---
<Elder Morton - Last Filed: 01/22/19 14:11> Subjective - Date & Time of Evaluation Date of Evaluation: 01/22/19 Time of Evaluation: 08:00 - Subjective Subjective: Elder Morton PGY1 Medicine Progress Note for Dr. Barger Patient seen and examined at bedside this morning. No adverse overnight events. Patient denies headache, fever, chills, n/v/d, chest pain, sob. He does not have pain in his legs. He is AAOx3 but lacks capacity. A full 12 point ROS was conducted and unremarkable except as stated above. Objective - Vital Signs/Intake and Output Vital Signs (last 24 hours): Temp Pulse Resp BP Pulse Ox 98.3 F 74 12 148/81 95 01/21/19 18:17 01/22/19 06:00 01/21/19 18:50 01/21/19 18:17 01/21/19 18:17 Intake and Output: 01/22/19 01/22/19 06:59 18:59 Intake Total 300 Output Total 200 Balance 100 - Medications Medications: Current Medications Heparin Sodium (Porcine) (Heparin) 5,000 units SC Q8 EMELY; Protocol Last Admin: 01/22/19 05:12 Dose: 5,000 units Vancomycin HCl (Vancomycin 1gm) 1 gm in 250 mls @ 167 mls/hr IVPB Q12 EMELY; Protocol Last Admin: 01/21/19 23:23 Dose: 167 mls/hr Piperacillin Sod/Tazobactam Sod (Zosyn 3.375 In Ns 100ml) 100 mls @ 25 mls/hr IVPB Q8 EMELY; Protocol Stop: 01/28/19 22:01 Last Admin: 01/22/19 05:13 Dose: 25 mls/hr Lorazepam (Ativan) 2 mg IVP Q4H PRN; Protocol PRN Reason: Seizure activity - Labs Labs: 01/22/19 06:25 01/22/19 06:25 - Constitutional Appears: No Acute Distress - Head Exam Head Exam: ATRAUMATIC, NORMAL INSPECTION, NORMOCEPHALIC - Eye Exam Eye Exam: PERRL. absent: Normal appearance Additional comments: Chronic lazy eye - ENT Exam ENT Exam: Mucous Membranes Moist - Respiratory Exam Respiratory Exam: Clear to Auscultation Bilateral, NORMAL BREATHING PATTERN. absent: Rales, Rhonchi, Wheezes - Cardiovascular Exam Cardiovascular Exam: REGULAR RHYTHM, +S1, +S2 - GI/Abdominal Exam GI & Abdominal Exam: Normal Bowel Sounds, Soft. absent: Tenderness Additional comments: Umbilical hernia - Extremities Exam Extremities exam: Positive for: pedal pulses present (Diminished). Negative for: normal capillary refill Additional comments: Severe scaly bilateral LE dermatitis. Open ulcerations in both lower legs with left foot ulcer with fluctuation. Dressing in place bilaterally by wound care. Sensation intact to bilateral distal lower ext. - Neurological Exam Neurological exam: Alert, CN II-XII Intact, Oriented x3 - Psychiatric Exam Psychiatric exam: Normal Affect, Normal Mood Additional comments: Patient does not have full capacity. Assessment and Plan - Assessment and Plan (Free Text) Assessment: Patient is a 58 year old male with past medical history of schizophrenia, seizure (non-compliant with medication), psoriasis, umbilical hernia, obesity presents to the ED accompanied by family for medical evaluation s/p witnessed seizure at home prior to arrival. Patient admitted for Seizures and Bilateral Lower Extremity Cellulitis and Ulcerations in the setting of chronic venous stasis. Plan: Seizure - Patient refused Head CT - explained the importance of the imaging - c/w Ativan 2mg q4 prn for seizures - f/u EEG results - c/w neurochecks, seizure precautions, and aspiration precautions - Neurology on consult (Dr. Turner) - Urine drug screen negative - EtOH level negative Bilateral Lower Extremity Cellulitis/Ulcerations - left and right foot XR: pending official read - LE arterial doppler: pending - tibula/fibula XR bilateral: soft tissue swelling without acute articular/osseous abnormalities. - LE venous doppler: no DVT - c/w vanco and zosyn for broad spectrum coverage - f/u blood cx - Wound care is on board - Podiatry on consult (Dr. Hernandez) - ID on consult (Dr. Orona). Recs appreciated. Schizophrenia - Psych is on consult (Dr. Hartley). Recs appreciated. - Patient wants to AMA but lacks capacity DVT ppx: hep sc GI ppx: not indicated Diet: Regular Dispo: Patient will be monitored on remote telemetry. Pending imaging and further recs from neuro and podiatry. Case was discussed and reviewed with Attending Physician, Dr. Barger <Agustin Barger - Last Filed: 01/22/19 15:51> Objective - Vital Signs/Intake and Output Vital Signs (last 24 hours): Temp Pulse Resp BP Pulse Ox 98.0 F 84 20 146/81 94 L 01/22/19 06:00 01/22/19 14:00 01/22/19 06:00 01/22/19 06:00 01/22/19 06:00 Intake and Output: 01/22/19 01/22/19 06:59 18:59 Intake Total 300 Output Total 200 Balance 100 - Medications Medications: Current Medications Betamethasone/Clotrimazole (Lotrisone) 0 gm TOP BID EMELY Divalproex Sodium (Depakote Dr(*Bid*)) 500 mg PO BID EMELY; Protocol Heparin Sodium (Porcine) (Heparin) 5,000 units SC Q8 EMELY; Protocol Last Admin: 01/22/19 14:38 Dose: 5,000 units Vancomycin HCl (Vancomycin 1gm) 1 gm in 250 mls @ 167 mls/hr IVPB Q12 EMELY; Protocol Last Admin: 01/22/19 09:52 Dose: 167 mls/hr Piperacillin Sod/Tazobactam Sod (Zosyn 3.375 In Ns 100ml) 100 mls @ 25 mls/hr IVPB Q8 EMELY; Protocol Stop: 01/28/19 22:01 Last Admin: 01/22/19 14:39 Dose: 25 mls/hr Lorazepam (Ativan) 2 mg IVP Q4H PRN; Protocol PRN Reason: Seizure activity - Labs Labs: 01/22/19 06:25 01/22/19 06:25 Attending/Attestation - Attestation I have personally seen and examined this patient.: Yes I have fully participated in the care of the patient.: Yes I have reviewed all pertinent clinical information, including history, physical exam and plan: Yes Notes (Text): 01/22/19 15:48 58 year old male with past medical history of schizophrenia, seizure, psoriasis and medication noncompliance who presented after witnessed seizure at home. Fou nd also to have extensive bilateral lower extremity ulcerations and cellulitis overlying chronic chronic venous statis. ID/podiatry evaluations were appreciated. Bilateral tibula/fibula xrays showed soft tissue swelling. Feet xray were reviewed as well. LE doppler negative for DVT. Arterial doppler is pending. Continue with iv antibiotics. Will follow up on cultures. Patient will also be seen by neurology for seizure disorder. EEG is ordered. He refused CT head yesterday. Psychiatry evaluation was appreciated yesterday; patient lacks decision making capacity of signing out against medical advice. Agustin Barger MD Hospitalist.
--- NOTE | 2019-01-22 08:52 | CARD ---
APPROVED REPORT Date of service: 01/21/2019 EKG Measurement Heart [id number] <Conclusion> Sinus tachycardia Clockwise Rotation.
[2019-01-22] MEDS: Vancomycin 1gm in NS 250ml 1 GM/250 ML BAG IVPB SCH ×2 (09:52→22:29)
[2019-01-22] MEDS ORDERED: Vancomycin 1gm in NS 250ml 1 GM/250 ML BAG IVPB SCH (10:00)
--- NOTE | 2019-01-22 12:24 | CP.PCM.CON ---
<Castro Finney - Last Filed: 01/22/19 12:18> History of Present Illness - History of Present Illness History of Present Illness: Podiatry consult note - Drs. Estrada/David 58M seen and evaluated this AM with Dr. Estraad for b/l LE ulcerations and xerotic/scaling legs. States his legs have looked like this for 3 months and the wounds developed around the same time. States he sees a spray painting machine operator for his legs on [address] in [place] and his legs are wrapped there. Denies pain to his legs but reports mild discomfort. States he walks most of the day when he is not in the hospital. Denies n/v/f/c/sob today and has no other pedal complaints. PMHx: schizophrenia, seizure (non-compliant with medication), psoriasis, umbilical hernia, obesity PSHx: denies All: NKDA Past Patient History - Infectious Disease Hx of Infectious Diseases: None - Tetanus Immunizations Tetanus Immunization: Unknown - Past Social History Smoking Status: Never Smoked - CARDIAC Hx Cardiac Disorders: Yes Hx Peripheral Edema: Yes - PULMONARY Hx Respiratory Disorders: No (pt denies) - NEUROLOGICAL Hx Neurological Disorder: No (pt denies) Hx Seizures: Yes - HEENT Hx HEENT Problems: No (pt denies) - RENAL Hx Chronic Kidney Disease: No (pt denies) - ENDOCRINE/METABOLIC Hx Endocrine Disorders: No (pt denies) - HEMATOLOGICAL/ONCOLOGICAL Hx Blood Disorders: No (pt denies) - INTEGUMENTARY Hx Dermatological Problems: Yes Hx Psoriasis: Yes - MUSCULOSKELETAL/RHEUMATOLOGICAL Hx Musculoskeletal Disorders: No (pt denies) - GASTROINTESTINAL Hx Gastrointestinal Disorders: No (pt denies) - GENITOURINARY/GYNECOLOGICAL Hx Genitourinary Disorders: No (pt denies) - PSYCHIATRIC Hx Depression: No Hx Emotional Abuse: No Hx Physical Abuse: No Hx Schizophrenia: Yes Hx Substance Use: No - SURGICAL HISTORY Hx Surgeries: No (pt denies) - ANESTHESIA Hx Anesthesia: No Meds Allergies/Adverse Reactions: Allergies Allergy/AdvReac Type Severity Reaction Status Date / Time No Known Allergies Allergy Verified 01/21/19 12:07 - Medications Medications: Current Medications Betamethasone/Clotrimazole (Lotrisone) 10 gm TOP BID EMELY Heparin Sodium (Porcine) (Heparin) 5,000 units SC Q8 EMELY; Protocol Last Admin: 01/22/19 05:12 Dose: 5,000 units Vancomycin HCl (Vancomycin 1gm) 1 gm in 250 mls @ 167 mls/hr IVPB Q12 [facility]; Protocol Last Admin: 01/22/19 09:52 Dose: 167 mls/hr Piperacillin Sod/Tazobactam Sod (Zosyn 3.375 In Ns 100ml) 100 mls @ 25 mls/hr IVPB Q8 [facility]; Protocol Stop: 01/28/19 22:01 Last Admin: 01/22/19 05:13 Dose: 25 mls/hr Lorazepam (Ativan) 2 mg IVP Q4H PRN; Protocol PRN Reason: Seizure activity Physical Exam - Constitutional Appears: Non-toxic - Head Exam Head Exam: ATRAUMATIC - Extremities Exam Additional comments: B/l LE focused VASC: DP and PT pulses non palpable 2/2 moderate edema (L>R); cap refill <3 seconds to all digits; temp gradient warm to warm; pedal hairgrowth absent DERM: LLE=medial leg wound measuring 6 x 5 x 0.2cm with granular base, hyperkeratotic rim, no probe to bone, mild malodor, no streaking appreciated; scaling and xerosis present from psoriasis; RLE=medial malleolar wound measuring 1 x 1 x 0.1cm with granular base appreciated, no probe, no streaking, no malodor or drainage noted; psoriasis present as well but not as severe ORTHO: no pain on palpation to wounds b/l; midfoot collapse noted L>R NEURO: gross and protective sensation diminished b/l - Neurological Exam Neurological exam: Alert, Oriented x3 - Psychiatric Exam Psychiatric exam: Normal Affect Results - Vital Signs Recent Vital Signs: Last Vital Signs Temp 98.0 F 01/22/19 06:00 Pulse 69 01/22/19 06:00 Resp 20 01/22/19 06:00 BP 146/81 01/22/19 06:00 Pulse Ox 94 L 01/22/19 06:00 - Labs Result Diagrams: 01/22/19 06:25 01/22/19 06:25 Labs: Laboratory Results - last 24 hr 01/21/19 01/21/19 01/21/19 14:40 15:00 15:00 WBC 10.8 RBC 4.34 Hgb 13.8 L D Hct 41.7 L MCV 96.1 D MCH 31.8 MCHC 33.1 RDW 15.9 H Plt Count 454 H MPV 9.9 Neut % (Auto) 50.0 Lymph % (Auto) 31.1 Barnes % (Auto) 10.5 H Eos % (Auto) 7.9 H Baso % (Auto) 0.5 Lymph # (Auto) 3.4 Barnes # (Auto) 1.1 H Eos # (Auto) 0.9 H Baso # (Auto) 0.05 Absolute Neuts (auto) 5.39 ESR Sodium 141 Potassium 4.0 Chloride 110 H Carbon Dioxide 21 Anion Gap 14 BUN 45 H Creatinine 1.2 Est GFR ( Amer) > 60 Est GFR (Non-Af Amer) > 60 Random Glucose 111 H Calcium 8.8 Magnesium 2.2 Total Bilirubin 0.1 L AST 29 ALT 13 Alkaline Phosphatase 147 H Total Creatine Kinase 41 C-Reactive Protein Total Protein 9.0 H Albumin 3.2 Globulin 5.7 Albumin/Globulin Ratio 0.6 L Urine Opiates Screen Urine Methadone Screen Ur Barbiturates Screen Ur Phencyclidine Scrn Ur Amphetamines Screen U Benzodiazepines Scrn U Oth Cocaine Metabols U Cannabinoids Screen Alcohol, Quantitative < 10 01/21/19 01/21/19 01/21/19 15:00 15:00 17:21 WBC RBC Hgb Hct MCV MCH MCHC RDW Plt Count MPV Neut % (Auto) Lymph % (Auto) Barnes % (Auto) Eos % (Auto) Baso % (Auto) Lymph # (Auto) Barnes # (Auto) Eos # (Auto) Baso # (Auto) Absolute Neuts (auto) ESR 3 Sodium Potassium Chloride Carbon Dioxide Anion Gap BUN Creatinine Est GFR ( Amer) Est GFR (Non-Af Amer) Random Glucose Calcium Magnesium Total Bilirubin AST ALT Alkaline Phosphatase Total Creatine Kinase C-Reactive Protein 51.40 H Total Protein Albumin Globulin Albumin/Globulin Ratio Urine Opiates Screen Negative Urine Methadone Screen Negative Ur Barbiturates Screen Negative Ur Phencyclidine Scrn Negative Ur Amphetamines Screen Negative U Benzodiazepines Scrn Negative U Oth Cocaine Metabols Negative U Cannabinoids Screen Negative Alcohol, Quantitative 01/22/19 01/22/19 06:25 06:25 WBC 7.4 D RBC 4.01 Hgb 12.5 L Hct 38.3 L MCV 95.5 MCH 31.2 MCHC 32.6 RDW 16.1 H Plt Count 386 MPV 9.4 Neut % (Auto) 66.5 Lymph % (Auto) 18.2 L Barnes % (Auto) 10.6 H Eos % (Auto) 4.3 Baso % (Auto) 0.4 Lymph # (Auto) 1.3 Barnes # (Auto) 0.8 H Eos # (Auto) 0.3 Baso # (Auto) 0.03 Absolute Neuts (auto) 4.91 ESR Sodium 145 Potassium 3.7 Chloride 115 H Carbon Dioxide 23 Anion Gap 11 BUN 29 H Creatinine 1.1 Est GFR ( Amer) > 60 Est GFR (Non-Af Amer) > 60 Random Glucose 99 Calcium 8.6 Magnesium Total Bilirubin 0.3 AST 47 ALT 19 Alkaline Phosphatase 114 Total Creatine Kinase C-Reactive Protein Total Protein 8.3 Albumin 2.9 L Globulin 5.4 Albumin/Globulin Ratio 0.5 L Urine Opiates Screen Urine Methadone Screen Ur Barbiturates Screen Ur Phencyclidine Scrn Ur Amphetamines Screen U Benzodiazepines Scrn U Oth Cocaine Metabols U Cannabinoids Screen Alcohol, Quantitative Assessment & Plan - Assessment and Plan (Free Text) Assessment: 58M with b/l stasis ulcerations and psoriasis Plan: Patient seen and evaluated with Dr. Estrada VSS, absent leukocytosis Wounds cleansed with sterile saline and dressed with maxorb, xeroform, dry sterile dressing and TREMAYNE Wound culture ordered - pending B/l tib/fib x-rays ordered - pending Surgical shoes ordered to be worn when ambulating Continue medication per medicine Upon d/c to f/u with Dr. Hernandez/Sean in wound center as outpatient Will continue to follow Thank you for the consult - Date & Time Date: 01/22/19 Time: 12:26 <Emir Estrada - Last Filed: 01/22/19 13:40> Meds - Medications Medications: Current Medications Betamethasone/Clotrimazole (Lotrisone) 0 gm TOP BID EMELY Divalproex Sodium (Mikael Em(*Bid*)) 500 mg PO BID EMELY; Protocol Heparin Sodium (Porcine) (Heparin) 5,000 units SC Q8 [facility]; Protocol Last Admin: 01/22/19 05:12 Dose: 5,000 units Vancomycin HCl (Vancomycin 1gm) 1 gm in 250 mls @ 167 mls/hr IVPB Q12 [facility]; Protocol Last Admin: 01/22/19 09:52 Dose: 167 mls/hr Piperacillin Sod/Tazobactam Sod (Zosyn 3.375 In Ns 100ml) 100 mls @ 25 mls/hr IVPB Q8 [facility]; Protocol Stop: 01/28/19 22:01 Last Admin: 01/22/19 05:13 Dose: 25 mls/hr Lorazepam (Ativan) 2 mg IVP Q4H PRN; Protocol PRN Reason: Seizure activity Results - Vital Signs Recent Vital Signs: Last Vital Signs Temp 98.0 F 01/22/19 06:00 Pulse 75 01/22/19 10:00 Resp 20 01/22/19 06:00 BP 146/81 01/22/19 06:00 Pulse Ox 94 L 01/22/19 06:00 - Labs Result Diagrams: 01/22/19 06:25 01/22/19 06:25 Labs: Laboratory Results - last 24 hr 01/21/19 01/21/19 01/21/19 14:40 15:00 15:00 WBC 10.8 RBC 4.34 Hgb 13.8 L D Hct 41.7 L MCV 96.1 D MCH 31.8 MCHC 33.1 RDW 15.9 H Plt Count 454 H MPV 9.9 Neut % (Auto) 50.0 Lymph % (Auto) 31.1 Barnes % (Auto) 10.5 H Eos % (Auto) 7.9 H Baso % (Auto) 0.5 Lymph # (Auto) 3.4 Barnes # (Auto) 1.1 H Eos # (Auto) 0.9 H Baso # (Auto) 0.05 Absolute Neuts (auto) 5.39 ESR Sodium 141 Potassium 4.0 Chloride 110 H Carbon Dioxide 21 Anion Gap 14 BUN 45 H Creatinine 1.2 Est GFR ( Amer) > 60 Est GFR (Non-Af Amer) > 60 Random Glucose 111 H Calcium 8.8 Magnesium 2.2 Total Bilirubin 0.1 L AST 29 ALT 13 Alkaline Phosphatase 147 H Total Creatine Kinase 41 C-Reactive Protein Total Protein 9.0 H Albumin 3.2 Globulin 5.7 Albumin/Globulin Ratio 0.6 L Urine Opiates Screen Urine Methadone Screen Ur Barbiturates Screen Ur Phencyclidine Scrn Ur Amphetamines Screen U Benzodiazepines Scrn U Oth Cocaine Metabols U Cannabinoids Screen Alcohol, Quantitative < 10 01/21/19 01/21/19 01/21/19 15:00 15:00 17:21 WBC RBC Hgb Hct MCV MCH MCHC RDW Plt Count MPV Neut % (Auto) Lymph % (Auto) Barnes % (Auto) Eos % (Auto) Baso % (Auto) Lymph # (Auto) Barnes # (Auto) Eos # (Auto) Baso # (Auto) Absolute Neuts (auto) ESR 3 Sodium Potassium Chloride Carbon Dioxide Anion Gap BUN Creatinine Est GFR ( Amer) Est GFR (Non-Af Amer) Random Glucose Calcium Magnesium Total Bilirubin AST ALT Alkaline Phosphatase Total Creatine Kinase C-Reactive Protein 51.40 H Total Protein Albumin Globulin Albumin/Globulin Ratio Urine Opiates Screen Negative Urine Methadone Screen Negative Ur Barbiturates Screen Negative Ur Phencyclidine Scrn Negative Ur Amphetamines Screen Negative U Benzodiazepines Scrn Negative U Oth Cocaine Metabols Negative U Cannabinoids Screen Negative Alcohol, Quantitative 01/22/19 01/22/19 06:25 06:25 WBC 7.4 D RBC 4.01 Hgb 12.5 L Hct 38.3 L MCV 95.5 MCH 31.2 MCHC 32.6 RDW 16.1 H Plt Count 386 MPV 9.4 Neut % (Auto) 66.5 Lymph % (Auto) 18.2 L Barnes % (Auto) 10.6 H Eos % (Auto) 4.3 Baso % (Auto) 0.4 Lymph # (Auto) 1.3 Barnes # (Auto) 0.8 H Eos # (Auto) 0.3 Baso # (Auto) 0.03 Absolute Neuts (auto) 4.91 ESR Sodium 145 Potassium 3.7 Chloride 115 H Carbon Dioxide 23 Anion Gap 11 BUN 29 H Creatinine 1.1 Est GFR ( Amer) > 60 Est GFR (Non-Af Amer) > 60 Random Glucose 99 Calcium 8.6 Magnesium Total Bilirubin 0.3 AST 47 ALT 19 Alkaline Phosphatase 114 Total Creatine Kinase C-Reactive Protein Total Protein 8.3 Albumin 2.9 L Globulin 5.4 Albumin/Globulin Ratio 0.5 L Urine Opiates Screen Urine Methadone Screen Ur Barbiturates Screen Ur Phencyclidine Scrn Ur Amphetamines Screen U Benzodiazepines Scrn U Oth Cocaine Metabols U Cannabinoids Screen Alcohol, Quantitative Attending/Attestation - Attestation I have personally seen and examined this patient.: Yes I have fully participated in the care of the patient.: Yes I have reviewed all pertinent clinical information: Yes
--- NOTE | 2019-01-22 12:24 | RAD ---
Date of service: 01/22/2019 PROCEDURE: Bilateral Feet Radiographs. HISTORY: r/o osteo; gas gangrene COMPARISON: None. TECHNIQUE: 6 views obtained. FINDINGS: BONES: Right Foot: Normal. No fracture. Left Foot: Normal. No fracture. JOINTS: Right Foot: There is severe flattening of the plantar arch Left Foot: There is severe flattening of the plantar arch bilaterally SOFT TISSUES: Right Foot: Normal. Left Foot: Normal. OTHER FINDINGS: None. IMPRESSION: There is severe flattening of the plantar arch bilaterally No evidence of osteomyelitis or a gas-forming infection
--- NOTE | 2019-01-22 15:23 | CON ---
DATE OF CONSULTATION: 01/22/2019 The patient is seen in room 364, bed 1. The patient is in bed. CHIEF COMPLAINT: Lower extremity erythema times several days. HISTORY OF PRESENT ILLNESS: This is a 58-year-old male with morbid obesity, BMI of 40, with psoriasis, seizures, schizophrenia, who has chronic lower extremity changes, now it is worse in the last several weeks, low-grade fevers. No chills. No nausea. No vomiting. REVIEW OF SYSTEMS: Twelve-point review of systems is performed. PAST MEDICAL HISTORY: Significant for psoriasis, seizures, morbid obesity, BMI of 40, and schizophrenia. PAST SURGICAL HISTORY: The patient denies any operations. ALLERGIES: THE PATIENT HAS NO KNOWN ALLERGIES. MEDICATIONS: Medications at home reveals the patient to have no medications at home. PHYSICAL EXAMINATION: GENERAL: The patient is in bed, appears much older than his stated age, somewhat disheveled, and however, answering questions appropriately. VITAL SIGNS: Temperature of 98, blood pressure is 146/70, respiratory rate is 20, heart rate of 113. HEENT: Examination of HEENT is unremarkable. NECK: Supple. LUNGS: Have decreased breath sounds. HEART: Normal S1, S2. ABDOMEN: Soft, nontender. No rebound or guarding. EXTREMITIES: Examination of extremities reveals the left leg with erythema, warm to touch and discharge, and pulses are intact. Right leg has chronic changes, but no evidence of any acute changes. LABORATORY DATA: Laboratory examination reveals a white count of 10,000, hemoglobin of 13, platelets of 454. Sed rate is 3. BUN of 45, creatinine of 1.2. A C-reactive protein is 51. Microbiology is pending. The patient had an x-ray of the tibia and fibula done yesterday, which revealed no evidence of any AR soft tissue, foreign bodies. Also had an x-ray of the tibia and fibula of the left leg, which shows diffuse edema and evidence of ulceration on x-ray is noted. No bony abnormalities. An ultrasound of the lower extremities reveals no evidence of DVT. ASSESSMENT AND PLAN: He is a 58-year-old male with psoriasis, seizures, morbid obesity, body mass index of 40 and schizophrenia with; 1. Left leg cellulitis, probable staph versus mixed organisms. We will order an HIV test because of his age. We will order hemoglobin A1c because of an elevated blood sugar and collect blood cultures, wound cultures. Podiatry consult and Vascular consultation for vascular workup, LISA's, and we will make further recommendations upon the availability of initial results. Hasmukh Lopez MD
--- NOTE | 2019-01-22 16:16 | CP.PCM.CON ---
<Bryon Chaudhry - Last Filed: 01/22/19 16:16> History of Present Illness - History of Present Illness History of Present Illness: Bryon Chaudhry PGY2 Neurology Consult Note for Dr. Turner Consult Requested by: Dr. Barger 58 year old male with past medical history of schizophrenia, seizure (non-compliant with medication), psoriasis, umbilical hernia, obesity presented to the ED for witnessed seizure at home prior to arrival. Patient is poor historian but says he did blackout. States last seizure was in 2009 and has not been taking any seizure medications since. History obtained from family in ED s [facility] patient was convulsing for 3-5 minutes while he was sitting in chair, he then fell. There was no injury to head or loss of consciousness as per family. Patient denies cp, sob, nausea, vomiting, diarrhea, headaches, numbness, tingling, change in vision or any other complaints at this time. PMD: none PMHx: schizophrenia, seizure (non-compliant with medication), psoriasis, umbilical hernia, obesity PSHx: denies Meds: none Allergies: NKDA SocialHx: denies smoking, drinking, drug use. FamHx: non-contributory Review of Systems - Constitutional Constitutional: absent: Headache, Weakness - Neurological Neurological: Weakness. absent: Confusion, Numbness, Frequent Falls, Headaches, Lack of Coordination, Loss of Vision, Paresthesias, Radicular Pain, Syncope, Tingling, Vertigo Past Patient History - Infectious Disease Hx of Infectious Diseases: None - Tetanus Immunizations Tetanus Immunization: Unknown - Past Social History Smoking Status: Never Smoked - CARDIAC Hx Cardiac Disorders: Yes Hx Peripheral Edema: Yes - PULMONARY Hx Respiratory Disorders: No (pt denies) - NEUROLOGICAL Hx Neurological Disorder: No (pt denies) Hx Seizures: Yes - HEENT Hx HEENT Problems: No (pt denies) - RENAL Hx Chronic Kidney Disease: No (pt denies) - ENDOCRINE/METABOLIC Hx Endocrine Disorders: No (pt denies) - HEMATOLOGICAL/ONCOLOGICAL Hx Blood Disorders: No (pt denies) - INTEGUMENTARY Hx Dermatological Problems: Yes Hx Psoriasis: Yes - MUSCULOSKELETAL/RHEUMATOLOGICAL Hx Musculoskeletal Disorders: No (pt denies) - GASTROINTESTINAL Hx Gastrointestinal Disorders: No (pt denies) - GENITOURINARY/GYNECOLOGICAL Hx Genitourinary Disorders: No (pt denies) - PSYCHIATRIC Hx Depression: No Hx Emotional Abuse: No Hx Physical Abuse: No Hx Schizophrenia: Yes Hx Substance Use: No - SURGICAL HISTORY Hx Surgeries: No (pt denies) - ANESTHESIA Hx Anesthesia: No Meds Allergies/Adverse Reactions: Allergies Allergy/AdvReac Type Severity Reaction Status Date / Time No Known Allergies Allergy Verified 01/21/19 12:07 - Medications Medications: Current Medications Betamethasone/Clotrimazole (Lotrisone) 0 gm TOP BID EMELY Divalproex Sodium (Depakote Dr(*Bid*)) 500 mg PO BID [facility]; Protocol Heparin Sodium (Porcine) (Heparin) 5,000 units SC Q8 [facility]; Protocol Last Admin: 01/22/19 14:38 Dose: 5,000 units Vancomycin HCl (Vancomycin 1gm) 1 gm in 250 mls @ 167 mls/hr IVPB Q12 [facility]; Protocol Last Admin: 01/22/19 09:52 Dose: 167 mls/hr Piperacillin Sod/Tazobactam Sod (Zosyn 3.375 In Ns 100ml) 100 mls @ 25 mls/hr IVPB Q8 [facility]; Protocol Stop: 01/28/19 22:01 Last Admin: 01/22/19 14:39 Dose: 25 mls/hr Lorazepam (Ativan) 2 mg IVP Q4H PRN; Protocol PRN Reason: Seizure activity Physical Exam - Constitutional Appears: No Acute Distress - Head Exam Head Exam: ATRAUMATIC, NORMAL INSPECTION, NORMOCEPHALIC - Eye Exam Eye Exam: EOMI, PERRL - Respiratory Exam Respiratory Exam: Clear to Auscultation Bilateral, NORMAL BREATHING PATTERN - Cardiovascular Exam Cardiovascular Exam: REGULAR RHYTHM - GI/Abdominal Exam GI & Abdominal Exam: Normal Bowel Sounds, Soft - Extremities Exam Extremities exam: Positive for: pedal pulses present - Neurological Exam Neurological exam: Alert, CN II-XII Intact, Oriented x3, Reflexes Normal Results - Vital Signs Recent Vital Signs: Last Vital Signs Temp 98.0 F 01/22/19 06:00 Pulse 84 01/22/19 14:00 Resp 20 01/22/19 06:00 BP 146/81 01/22/19 06:00 Pulse Ox 94 L 01/22/19 06:00 - Labs Result Diagrams: 01/22/19 06:25 01/22/19 06:25 Labs: Laboratory Results - last 24 hr 01/21/19 01/21/19 01/21/19 15:00 15:00 15:00 WBC RBC Hgb Hct MCV MCH MCHC RDW Plt Count MPV Neut % (Auto) Lymph % (Auto) Grundy % (Auto) Eos % (Auto) Baso % (Auto) Lymph # (Auto) [place]undy # (Auto) Eos # (Auto) Baso # (Auto) Absolute Neuts (auto) ESR 3 Sodium Potassium Chloride Carbon Dioxide Anion Gap BUN Creatinine Est GFR ( Amer) Est GFR (Non-Af Amer) Random Glucose Calcium Total Bilirubin AST ALT Alkaline Phosphatase C-Reactive Protein 51.40 H Total Protein Albumin Globulin Albumin/Globulin Ratio Urine Opiates Screen Urine Methadone Screen Ur Barbiturates Screen Ur Phencyclidine Scrn Ur Amphetamines Screen U Benzodiazepines Scrn U Oth Cocaine Metabols U Cannabinoids Screen Alcohol, Quantitative < 10 01/21/19 01/22/19 01/22/19 17:21 06:25 06:25 WBC 7.4 D RBC 4.01 Hgb 12.5 L Hct 38.3 L MCV 95.5 MCH 31.2 MCHC 32.6 RDW 16.1 H Plt Count 386 MPV 9.4 Neut % (Auto) 66.5 Lymph % (Auto) 18.2 L [place]undy % (Auto) 10.6 H Eos % (Auto) 4.3 Baso % (Auto) 0.4 Lymph # (Auto) 1.3 [place]undy # (Auto) 0.8 H Eos # (Auto) 0.3 Baso # (Auto) 0.03 Absolute Neuts (auto) 4.91 ESR Sodium 145 Potassium 3.7 Chloride 115 H Carbon Dioxide 23 Anion Gap 11 BUN 29 H Creatinine 1.1 Est GFR ( Amer) > 60 Est GFR (Non-Af Amer) > 60 Random Glucose 99 Calcium 8.6 Total Bilirubin 0.3 AST 47 ALT 19 Alkaline Phosphatase 114 C-Reactive Protein Total Protein 8.3 Albumin 2.9 L Globulin 5.4 Albumin/Globulin Ratio 0.5 L Urine Opiates Screen Negative Urine Methadone Screen Negative Ur Barbiturates Screen Negative Ur Phencyclidine Scrn Negative Ur Amphetamines Screen Negative U Benzodiazepines Scrn Negative U Oth Cocaine Metabols Negative U Cannabinoids Screen Negative Alcohol, Quantitative Assessment & Plan - Assessment and Plan (Free Text) Plan: Seizure -past history of seizures -EEG pending -patient refused CT head due to radiation concerns -depakote [id number] -follow up outpatient <Gianluca Turner - Last Filed: 01/24/19 21:11> Meds - Medications Medications: Current Medications Betamethasone/Clotrimazole (Lotrisone) 0 gm TOP BID EMELY Last Admin: 01/24/19 18:37 Dose: Not Given Divalproex Sodium (Depakote Dr(*Bid*)) 500 mg PO BID [facility]; Protocol Last Admin: 01/24/19 18:36 Dose: Not Given Heparin Sodium (Porcine) (Heparin) 5,000 units SC Q8 [facility]; Protocol Last Admin: 01/24/19 13:36 Dose: 5,000 units Vancomycin HCl (Vancomycin 1gm) 1 gm in 250 mls @ 167 mls/hr IVPB Q12 [facility]; Protocol Last Admin: 01/24/19 09:44 Dose: 167 mls/hr Piperacillin Sod/Tazobactam Sod (Zosyn 3.375 In Ns 100ml) 100 mls @ 25 mls/hr IVPB Q8 [facility]; Protocol Stop: 01/28/19 22:01 Last Admin: 01/24/19 13:36 Dose: 25 mls/hr Lorazepam (Ativan) 2 mg IVP Q4H PRN; Protocol PRN Reason: Seizure activity Results - Vital Signs Recent Vital Signs: Last Vital Signs Temp 97.9 F 01/24/19 06:00 Pulse 88 01/24/19 14:00 Resp 20 01/24/19 06:00 BP 150/94 H 01/24/19 06:00 Pulse Ox 94 L 01/24/19 06:00 - Labs Result Diagrams: 01/24/19 06:30 01/24/19 06:30 Labs: Laboratory Results - last 24 hr 01/23/19 01/24/19 01/24/19 07:00 06:30 06:30 WBC 7.7 D RBC 4.32 Hgb 13.6 L Hct 41.3 L MCV 95.6 MCH 31.5 MCHC 32.9 RDW 15.8 H Plt Count 330 MPV 9.7 Neut % (Auto) 51.8 Lymph % (Auto) 22.8 [place]undy % (Auto) 16.9 H Eos % (Auto) 8.2 H Baso % (Auto) 0.3 Lymph # (Auto) 1.8 [place]undy # (Auto) 1.3 H Eos # (Auto) 0.6 Baso # (Auto) 0.02 Absolute Neuts (auto) 3.98 ESR Sodium 144 Potassium 4.0 Chloride 111 H Carbon Dioxide 24 Anion Gap 13 BUN 16 Creatinine 0.9 Est GFR ( Amer) > 60 Est GFR (Non-Af Amer) > 60 Random Glucose 88 Hemoglobin A1c 5.5 Calcium 8.8 Total Bilirubin 0.5 AST 47 ALT 35 Alkaline Phosphatase 128 H Total Protein 8.4 H Albumin 2.9 L Globulin 5.5 Albumin/Globulin Ratio 0.5 L 01/24/19 06:30 WBC RBC Hgb Hct MCV MCH MCHC RDW Plt Count MPV Neut % (Auto) Lymph % (Auto) [place]undy % (Auto) Eos % (Auto) Baso % (Auto) Lymph # (Auto) [place]undy # (Auto) Eos # (Auto) Baso # (Auto) Absolute Neuts (auto) ESR 112 H Sodium Potassium Chloride Carbon Dioxide Anion Gap BUN Creatinine Est GFR ( Amer) Est GFR (Non-Af Amer) Random Glucose Hemoglobin A1c Calcium Total Bilirubin AST ALT Alkaline Phosphatase Total Protein Albumin Globulin Albumin/Globulin Ratio Attending/Attestation - Attestation I have personally seen and examined this patient.: Yes I have fully participated in the care of the patient.: Yes I have reviewed all pertinent clinical information: Yes Notes (Text): I agree with the assessment and plan. Will resume seizure medication.
[2019-01-22] MEDS: Clotrimazole/Betamethasone Cream(15 gm) TOP SCH (17:42)
[2019-01-22] MEDS: Divalproex 500 mg DR(BID formulation) PO SCH (17:42)
--- NOTE | 2019-01-22 20:03 | CON ---
DATE: 01/22/2019 HISTORY OF PRESENT ILLNESS: The patient is a 58-year-old single male reportedly with no formal prior psychiatric history, though questionable diagnosis of schizophrenia, who is being treated on the medical floor for seizures and cellulitis after refusing treatment while he was in the ER. Dr. Duque assessed the patient in the ER, found that he lacked capacity and the patient was brought to the medical floor and he generally has been accepting of medical treatment since then, though he did refuse a head CT. I reviewed Dr. Duque's consultations and recent notes and I met with the patient at bedside and he does appear disheveled and oddly, almost bizarrely related. Eye contact is good, although he is guarded. His general responses are consistent with repeat questioning and they are relevant to my question. He denies any hallucinations. He denies having paranoia. He understands we are trying to help him and appears reluctant in agreeing to this help, but not escalating or demanding or agitated during my visit. He is almost polite towards the end of my interview. Presently, he is oriented to month and location and year, indicates he wants to live. Denies having any suicidal thoughts, indicates that he slept well. He is not engaged, but he is succinct with his responses. Presently, he does admit that his lower extremity pain is improving with treatment and is thus far agreeable to continue with treatment until discharge is recommended. Tenuously, he has been in control. His insight and judgment are improving a little bit, although this again is still tenuous. PSYCHIATRIC HISTORY: The patient denies having any psychiatric history. Denies any suicide attempts or psychiatric medications. SOCIAL HISTORY: The patient indicates he lives by himself. He is not . He has no children. He used to work for a moving company. He only made it as far as senior year in high school. Denies any drug or alcohol issues. LABS AND VITALS: Are reviewed. MEDICATIONS: Regarding his medications, he is not on any psychiatric medication. IMPRESSION: Rule out contribution of delirium, rule out contribution of an untreated high functioning paranoid schizophrenia versus paranoid personality disorder, a schizotypal personality disorder. RECOMMENDATIONS: The patient is willing to stay for treatment at this time. There is no acute psychiatric medication to that end as he has not been agitated or combative on the medical floor. He is not psychiatrically cleared, however, due to his lacking capacity should he change his mind. The patient does not want Psychiatry to continue following up. We will respect this request; however, we will continue to check up on his progress and check for any indications to reengage with him while he is being treated on the medical floor. The patient is not agreeable to transfer to the psychiatric unit and may meet criteria for involuntary commitment due to his inability to care for himself. Next followup by Psychiatry will be on 01/24/2019. Please request earlier followup if there are any acute changes in the patient's presentation. Cuauhtemoc Bolden MD
--- NOTE | 2019-01-22 20:40 | US ---
PROCEDURE: Lower extremity LISA exam HISTORY: Peripheral vascular disease with pain and claudication. Previous smoker PHYSICIAN(S): Joey Rubin MD. FINDINGS: The resting LISA's are normal: right, 0.97and left, 0.10. The brachial systolic pressures are symmetric. The high thigh pressures and waveforms are relatively normal. The calf PVR waveforms augment normally. No significant gradients are noted across the thighs. The ankle and metatarsal waveforms are relatively normal and symmetric. No significant pressure gradients are noted across the lower legs. IMPRESSION: 1. Normal LISA and PVR examination at rest.
[2019-01-23] MEDS: Piperacillin/Tazobact 3.375 gm 100 ML IVPB SCH ×3 (06:44→22:30)
--- NOTE | 2019-01-23 07:21 | PCM.EEG ---
Electroencephalogram Report - Electroencephalogram Report Procedure Date: 01/22/19 Medication: Depakote Interpretation: Technical Information: This was a 21 -channel EEG, 1-channel EKG routine EEG performed using [employer] equipment; Electrodes were applied using the 10/20 international placement system. Impedances were less than 5 KOhm. Start; 12;37 End; 13;03 Total 37 min. Clinical Information: 58 y/o man with history of epilepsy EEG Detail: During active states, the EEG contained symmetric 10-20 Hz,20-30 uV activity seen bi-frontally. . During resting wakefulness there was a symmetric posterior dominant rhythm at 8.5-9.5 Hz, 30-50 uV, which was reactive to eye opening and closing. . Drowsiness (12;58 ) was associated with fragmentation of the posterior dominant rhythm and with slow roving eye movements. Photic stimulation was performed and there were no changes in the record. 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 Call me if you have any questions.
[2019-01-23 08:19] LABS: BASO # 0.03 K/mm3 (0.0-2.0); BASO % 0.5 % (0.0-3.0); EOS # 0.6 (0.0-0.7); EOS % 10.1 % (1.5-5.0); HEMOGLOBIN 12.8 g/dL (14.0-18.0); LYMPH # 1.5 (1.2-3.4); LYMPH % 24.2 % (22.0-35.0); MEAN CELL VOLUME 95.2 fl (80.0-105.0); MEAN CORPUSCULAR HEMOGLOBIN 30.8 pg (25.0-35.0); MEAN CORPUSCULAR HGB CONC 32.3 g/dl (31.0-37.0); MEAN PLATELET VOLUME 9.6 fl (7.0-11.0); MONO # 0.9 (0.1-0.6); RBC 4.16 10^6/uL (3.5-6.1); RED CELL DISTRIBUTION WIDTH 15.8 % (11.5-14.5); WHITE BLOOD COUNT 6.1 10^3/uL (4.5-11.0)
[2019-01-23 08:31] LABS: ALB/GLOB RATIO 0.5 (1.1-1.8); ALT/SGPT 26 U/L (7-56); AST/SGOT 42 U/L (17-59); BLOOD UREA NITROGEN 17 mg/dL (7-21); CALCIUM 8.8 mg/dL (8.4-10.5); GFR NON-AFRICAN AMERICAN > 60
--- NOTE | 2019-01-23 08:33 | CP.PCM.PN ---
<Ksenia Durant - Last Filed: 01/23/19 08:30> Subjective - Date & Time of Evaluation Date of Evaluation: 01/23/19 Time of Evaluation: 08:30 - Subjective Subjective: Podiatry progress note - Drs. Estrada/David 58 y/o female seen and evaluated this AM with Dr. Estrada for b/l LE ulcerations and xerotic/scaling legs. Patient denies any acute overnight events. Patient states feeling much better. Denies pain to his legs but reports mild discomfort. Denies n/v/f/c/sob today and has no other pedal complaints. Objective - Vital Signs/Intake and Output Vital Signs (last 24 hours): Temp Pulse Resp BP Pulse Ox 98.8 F 69 20 150/78 95 01/23/19 00:00 01/23/19 00:00 01/23/19 00:00 01/23/19 00:00 01/23/19 00:00 Intake and Output: 01/23/19 01/23/19 06:59 18:59 Intake Total 1680 Output Total 1300 Balance 380 - Medications Medications: Current Medications Betamethasone/Clotrimazole (Lotrisone) 0 gm TOP BID EMELY Last Admin: 01/22/19 17:42 Dose: 1 applic Divalproex Sodium (Depakote Dr(*Bid*)) 500 mg PO BID EMELY; Protocol Last Admin: 01/22/19 17:42 Dose: 500 mg Heparin Sodium (Porcine) (Heparin) 5,000 units SC Q8 EMELY; Protocol Last Admin: 01/23/19 06:44 Dose: 5,000 units Vancomycin HCl (Vancomycin 1gm) 1 gm in 250 mls @ 167 mls/hr IVPB Q12 EMELY; Protocol Last Admin: 01/22/19 22:29 Dose: 167 mls/hr Piperacillin Sod/Tazobactam Sod (Zosyn 3.375 In Ns 100ml) 100 mls @ 25 mls/hr IVPB Q8 EMELY; Protocol Stop: 01/28/19 22:01 Last Admin: 01/23/19 06:44 Dose: 25 mls/hr Lorazepam (Ativan) 2 mg IVP Q4H PRN; Protocol PRN Reason: Seizure activity - Labs Labs: 01/23/19 07:00 01/22/19 06:25 - Constitutional Appears: Well, Non-toxic - Head Exam Head Exam: ATRAUMATIC, NORMOCEPHALIC - Extremities Exam Additional comments: B/l LE focused VASC: DP and PT pulses non palpable 2/2 moderate edema (L>R); cap refill <3 seconds to all digits; temp gradient warm to warm; pedal hairgrowth absent DERM: LLE-medial leg wound measuring 6 x 5 x 0.2cm with granular base, hyperkeratotic rim, no probe to bone, mild malodor, no streaking appreciated, positive sero-sanguinous and ourulent drainage noted; scaling and xerosis presen t from psoriasis; RLE=medial malleolar wound measuring 1 x 1 x 0.1cm with granular base appreciated, no probe, no streaking, no malodor or drainage noted; psoriasis present to bilateral lower extremities ORTHO: no pain on palpation to wounds b/l; midfoot collapse noted L>R NEURO: gross and protective sensation diminished b/l - Neurological Exam Neurological Exam: Alert, Awake, Oriented x3 - Psychiatric Exam Psychiatric exam: Normal Affect, Normal Mood Assessment and Plan - Assessment and Plan (Free Text) Assessment: 58M with b/l stasis ulcerations and psoriasis Plan: Patient seen and evaluated with Dr. Sean PEARSON, absent leukocytosis Wounds cleansed with sterile saline and dressed with lotrisone, maxorb, xeroform, dry sterile dressing and TREMAYNE Wound culture ordered - pending B/l tib/fib x-rays ordered - soft tissue swelling without acute articular or osseous abnormality, no subcutaneous air seen Continue management per primary care team Upon d/c to f/u with Dr. Hernandez/Sean in wound center as outpatient Will continue to follow <Emir Estrada - Last Filed: 01/23/19 11:32> Objective - Vital Signs/Intake and Output Vital Signs (last 24 hours): Temp Pulse Resp BP Pulse Ox 98.8 F 69 20 150/78 95 01/23/19 00:00 01/23/19 00:00 01/23/19 00:00 01/23/19 00:00 01/23/19 00:00 Intake and Output: 01/23/19 01/23/19 06:59 18:59 Intake Total 1680 Output Total 1300 Balance 380 - Medications Medications: Current Medications Betamethasone/Clotrimazole (Lotrisone) 0 gm TOP BID EMELY Last Admin: 01/23/19 10:21 Dose: Not Given Divalproex Sodium (Depakote Dr(*Bid*)) 500 mg PO BID EMELY; Protocol Last Admin: 01/23/19 10:25 Dose: Not Given Heparin Sodium (Porcine) (Heparin) 5,000 units SC Q8 EMELY; Protocol Last Admin: 01/23/19 06:44 Dose: 5,000 units Vancomycin HCl (Vancomycin 1gm) 1 gm in 250 mls @ 167 mls/hr IVPB Q12 EMELY; Protocol Last Admin: 01/23/19 10:21 Dose: 167 mls/hr Piperacillin Sod/Tazobactam Sod (Zosyn 3.375 In Ns 100ml) 100 mls @ 25 mls/hr IVPB Q8 EMELY; Protocol Stop: 01/28/19 22:01 Last Admin: 01/23/19 06:44 Dose: 25 mls/hr Lorazepam (Ativan) 2 mg IVP Q4H PRN; Protocol PRN Reason: Seizure activity - Labs Labs: 01/23/19 07:00 01/23/19 07:00 Attending/Attestation - Attestation I have personally seen and examined this patient.: Yes I have fully participated in the care of the patient.: Yes I have reviewed all pertinent clinical information, including history, physical exam and plan: Yes
[2019-01-23] MEDS: Divalproex 500 mg DR(BID formulation) PO SCH ×3 (10:20→17:35)
[2019-01-23] MEDS: Clotrimazole/Betamethasone Cream(15 gm) TOP SCH ×2 (10:21→17:36)
[2019-01-23] MEDS: Vancomycin 1gm in NS 250ml 1 GM/250 ML BAG IVPB SCH ×2 (10:21→22:30)
--- NOTE | 2019-01-23 16:04 | CP.PCM.PN ---
<Elder Morton - Last Filed: 01/23/19 15:39> Subjective - Date & Time of Evaluation Date of Evaluation: 01/23/19 Time of Evaluation: 08:00 - Subjective Subjective: Elder Morton PGY1 Medicine Progress Note for Dr. Barger Patient seen and examined at bedside this morning. No adverse overnight events. Patient denies headache, fever, chills, n/v/d, chest pain, sob, pain in his legs. He is AAOx3. A full 12 point ROS was conducted and unremarkable except as stated above. Objective - Vital Signs/Intake and Output Vital Signs (last 24 hours): Temp Pulse Resp BP Pulse Ox 99.0 F 76 20 162/83 H 94 L 01/23/19 06:00 01/23/19 06:00 01/23/19 06:00 01/23/19 06:00 01/23/19 06:00 Intake and Output: 01/23/19 01/23/19 06:59 18:59 Intake Total 1680 Output Total 1300 Balance 380 - Medications Medications: Current Medications Betamethasone/Clotrimazole (Lotrisone) 0 gm TOP BID EMELY Last Admin: 01/23/19 10:21 Dose: Not Given Divalproex Sodium (Depakote Dr(*Bid*)) 500 mg PO BID EMELY; Protocol Last Admin: 01/23/19 10:25 Dose: Not Given Heparin Sodium (Porcine) (Heparin) 5,000 units SC Q8 EMELY; Protocol Last Admin: 01/23/19 14:58 Dose: 5,000 units Vancomycin HCl (Vancomycin 1gm) 1 gm in 250 mls @ 167 mls/hr IVPB Q12 EMELY; Protocol Last Admin: 01/23/19 10:21 Dose: 167 mls/hr Piperacillin Sod/Tazobactam Sod (Zosyn 3.375 In Ns 100ml) 100 mls @ 25 mls/hr IVPB Q8 EMELY; Protocol Stop: 01/28/19 22:01 Last Admin: 01/23/19 14:58 Dose: 25 mls/hr Lorazepam (Ativan) 2 mg IVP Q4H PRN; Protocol PRN Reason: Seizure activity - Labs Labs: 01/23/19 07:00 01/23/19 07:00 - Constitutional Appears: No Acute Distress - Head Exam Head Exam: ATRAUMATIC, NORMAL INSPECTION, NORMOCEPHALIC - Eye Exam Eye Exam: PERRL. absent: Normal appearance Additional comments: Chronic lazy eye - ENT Exam ENT Exam: Mucous Membranes Moist - Respiratory Exam Respiratory Exam: Clear to Auscultation Bilateral, NORMAL BREATHING PATTERN. absent: Rales, Rhonchi, Wheezes - Cardiovascular Exam Cardiovascular Exam: REGULAR RHYTHM, +S1, +S2 - GI/Abdominal Exam GI & Abdominal Exam: Normal Bowel Sounds, Soft. absent: Tenderness Additional comments: Umbilical hernia - Extremities Exam Extremities exam: Positive for: pedal pulses present (Diminished). Negative for: normal capillary refill Additional comments: Severe scaly bilateral LE dermatitis. Ulcerations in both lower legs with left foot ulcer with fluctuation. Dressing in place bilaterally by wound care. Sensation intact to bilateral distal lower ext. - Neurological Exam Neurological exam: Alert, CN II-XII Intact, Oriented x3 - Psychiatric Exam Psychiatric exam: Normal Affect, Normal Mood Additional comments: Assessment and Plan - Assessment and Plan (Free Text) Assessment: Patient is a 58 year old male with past medical history of schizophrenia, seizure (non-compliant with medication), psoriasis, umbilical hernia, obesity presents to the ED accompanied by family for medical evaluation s/p witnessed seizure at home prior to arrival. Patient admitted for Seizures and Bilateral Lower Extremity Cellulitis and Ulcerations in the setting of chronic venous stasis. Plan: Seizure - Depakote 500mg PO BID added by neuro - EEG: abnormal, shows generalized epilepsy - c/w Ativan 2mg q4 prn for seizures - c/w neurochecks, seizure precautions, and aspiration precautions - Neurology on consult (Dr. Turner). Recs appreciated. Bilateral Lower Extremity Cellulitis/Ulcerations - left and right foot XR: severe flattening of plantar arch. No osteo or gas forming infection. - LE arterial doppler: normal LISA. - tibula/fibula XR bilateral: soft tissue swelling without acute articular/osseous abnormalities. - LE venous doppler: no DVT - c/w vanco and zosyn - Wound cx pending official results - blood cx negative x2 (prelim) - Wound care is on board - Podiatry on consult (Dr. Hernandez) - ID on consult (Dr. Orona). Recs appreciated. Schizophrenia - Psych is on consult (Dr. Hartley). Recs appreciated. - Patient wants to AMA but lacks capacity DVT ppx: hep sc GI ppx: not indicated Diet: Regular Dispo: Patient will be monitored on remote telemetry. Pending PT recommendation. Case was discussed and reviewed with Attending Physician, Dr. Barger <Agustin Barger - Last Filed: 01/23/19 16:16> Objective - Vital Signs/Intake and Output Vital Signs (last 24 hours): Temp Pulse Resp BP Pulse Ox 99.0 F 76 20 162/83 H 94 L 01/23/19 06:00 01/23/19 06:00 01/23/19 06:00 01/23/19 06:00 01/23/19 06:00 Intake and Output: 01/23/19 01/23/19 06:59 18:59 Intake Total 1680 Output Total 1300 Balance 380 - Medications Medications: Current Medications Betamethasone/Clotrimazole (Lotrisone) 0 gm TOP BID EMELY Last Admin: 01/23/19 10:21 Dose: Not Given Divalproex Sodium (Depakotaras Dr(*Bid*)) 500 mg PO BID EMELY; Protocol Last Admin: 01/23/19 10:25 Dose: Not Given Heparin Sodium (Porcine) (Heparin) 5,000 units SC Q8 EMELY; Protocol Last Admin: 01/23/19 14:58 Dose: 5,000 units Vancomycin HCl (Vancomycin 1gm) 1 gm in 250 mls @ 167 mls/hr IVPB Q12 EMELY; Protocol Last Admin: 01/23/19 10:21 Dose: 167 mls/hr Piperacillin Sod/Tazobactam Sod (Zosyn 3.375 In Ns 100ml) 100 mls @ 25 mls/hr IVPB Q8 EMELY; Protocol Stop: 01/28/19 22:01 Last Admin: 01/23/19 14:58 Dose: 25 mls/hr Lorazepam (Ativan) 2 mg IVP Q4H PRN; Protocol PRN Reason: Seizure activity - Labs Labs: 01/23/19 07:00 01/23/19 07:00 Attending/Attestation - Attestation I have personally seen and examined this patient.: Yes I have fully participated in the care of the patient.: Yes I have reviewed all pertinent clinical information, including history, physical exam and plan: Yes Notes (Text): 01/23/19 16:07 58 year old male with past medical history of schizophrenia, seizure, psoriasis and medication noncompliance who presented after witnessed seizure at home. Found also to have extensive bilateral lower extremity ulcerations and cellulitis overlying chronic chronic venous statis. Bilateral tibula/fibula xrays showed soft tissue swelling. Feet xray were reviewed as well. LE doppler negative for DVT. Arterial doppler was also normal. Continue with iv antibiotics as per ID and wound care as per podiatry. Will follow up on cultures which are negative to date. Neurology is following for seizure disorder and started on depakote. EEG was reviewed as above. Patient refused CT head. Psychiatry evaluation was appreciated as patient initially wanted to sign out AMA (lacked decision making capacity of signing out against medical advice). Currently he is agreeable to stay. PT evaluation is ordered. Agustin Barger MD Hospitalist.
--- NOTE | 2019-01-23 23:40 | PN ---
DATE: 01/23/2019 SUBJECTIVE: The patient is in bed, in no acute distress. PHYSICAL EXAMINATION: VITAL SIGNS: Temperature is 98, blood pressure is 130/90, respiratory rate 20, and heart rate is 77. HEENT: Unremarkable. NECK: Supple. LUNGS: Decreased breath sounds. HEART: Normal S1 and S2. ABDOMEN: Soft. LABORATORY DATA: Reveals a white count of 6.1 and hemoglobin is noted. BUN of 17 and creatinine of 1.0. Toxicology is noted. Microbiology is reviewed. ASSESSMENT AND PLAN: This is a 58-year-old male with psoriasis, seizures, morbid obesity, BMI of 40, schizophrenia now with left leg cellulitis. Currently, on vancomycin and Zosyn with gram-negative rods and gram-positive cocci from both right and left leg cultures with negative blood cultures. We will follow with you. Hasmukh Lopez MD
[2019-01-24] MEDS: Piperacillin/Tazobact 3.375 gm 100 ML IVPB SCH ×3 (06:24→21:27)
[2019-01-24 07:30] LABS: BASO # 0.02 K/mm3 (0.0-2.0); BASO % 0.3 % (0.0-3.0); EOS # 0.6 (0.0-0.7); EOS % 8.2 % (1.5-5.0); HEMOGLOBIN 13.6 g/dL (14.0-18.0); LYMPH # 1.8 (1.2-3.4); LYMPH % 22.8 % (22.0-35.0); MEAN CELL VOLUME 95.6 fl (80.0-105.0); MEAN CORPUSCULAR HEMOGLOBIN 31.5 pg (25.0-35.0); MEAN CORPUSCULAR HGB CONC 32.9 g/dl (31.0-37.0); MEAN PLATELET VOLUME 9.7 fl (7.0-11.0); MONO # 1.3 (0.1-0.6); MONO % 16.9 % (1.0-6.0); RBC 4.32 10^6/uL (3.5-6.1); RED CELL DISTRIBUTION WIDTH 15.8 % (11.5-14.5); WHITE BLOOD COUNT 7.7 10^3/uL (4.5-11.0)
[2019-01-24 08:00] LABS: ALB/GLOB RATIO 0.5 (1.1-1.8); ALBUMIN 2.9 g/dL (3.0-4.8); ALT/SGPT 35 U/L (7-56); AST/SGOT 47 U/L (17-59); BLOOD UREA NITROGEN 16 mg/dL (7-21); CALCIUM 8.8 mg/dL (8.4-10.5); GFR NON-AFRICAN AMERICAN > 60
[2019-01-24] MEDS: Vancomycin 1gm in NS 250ml 1 GM/250 ML BAG IVPB SCH ×2 (09:44→21:25)
[2019-01-24] MEDS: Divalproex 500 mg DR(BID formulation) PO SCH ×3 (09:45→18:36)
[2019-01-24] MEDS: Clotrimazole/Betamethasone Cream(15 gm) TOP SCH ×2 (09:47→18:37)
--- NOTE | 2019-01-24 11:57 | CP.PCM.PN ---
Subjective - Date & Time of Evaluation Date of Evaluation: 01/24/19 Time of Evaluation: 11:54 - Subjective Subjective: Podiatry progress note - Drs. Estrada/David 58 y/o female seen and evaluated this AM with Dr. Estrada for b/l LE ulcerations and xerotic/scaling legs. Patient denies any acute overnight events. Patient states feeling much better. Denies pain to his legs but reports mild discomfort. Denies n/v/f/c/sob today and has no other pedal complaints. Objective - Vital Signs/Intake and Output Vital Signs (last 24 hours): Temp Pulse Resp BP Pulse Ox 97.9 F 72 20 150/94 H 94 L 01/24/19 06:00 01/24/19 06:00 01/24/19 06:00 01/24/19 06:00 01/24/19 06:00 Intake and Output: 01/24/19 01/24/19 06:59 18:59 Intake Total 180 Output Total 1000 Balance -820 - Medications Medications: Current Medications Betamethasone/Clotrimazole (Lotrisone) 0 gm TOP BID EMELY Last Admin: 01/24/19 09:47 Dose: Not Given Divalproex Sodium (Depakote Dr(*Bid*)) 500 mg PO BID EMELY; Protocol Last Admin: 01/24/19 10:00 Dose: Not Given Heparin Sodium (Porcine) (Heparin) 5,000 units SC Q8 EMELY; Protocol Last Admin: 01/24/19 06:23 Dose: 5,000 units Vancomycin HCl (Vancomycin 1gm) 1 gm in 250 mls @ 167 mls/hr IVPB Q12 EMELY; Protocol Last Admin: 01/24/19 09:44 Dose: 167 mls/hr Piperacillin Sod/Tazobactam Sod (Zosyn 3.375 In Ns 100ml) 100 mls @ 25 mls/hr IVPB Q8 EMELY; Protocol Stop: 01/28/19 22:01 Last Admin: 01/24/19 06:24 Dose: 25 mls/hr Lorazepam (Ativan) 2 mg IVP Q4H PRN; Protocol PRN Reason: Seizure activity - Labs Labs: 01/24/19 06:30 01/24/19 06:30 - Constitutional Appears: Well, Non-toxic, No Acute Distress - Head Exam Head Exam: ATRAUMATIC, NORMOCEPHALIC - Extremities Exam Additional comments: B/l LE focused VASC: DP and PT pulses non palpable 2/2 moderate edema (L>R); cap refill <3 seconds to all digits; temp gradient warm to warm; pedal hairgrowth absent DERM: LLE-medial leg wound measuring 6 x 5 x 0.2cm with granular base, hyp erkeratotic rim, no probe to bone, mild malodor, no streaking appreciated, positive sero-sanguinous and ourulent drainage noted; scaling and xerosis present from psoriasis; RLE=medial malleolar wound measuring 1 x 1 x 0.1cm with granular base appreciated, no probe, no streaking, no malodor or drainage noted; psoriasis present to bilateral lower extremities ORTHO: no pain on palpation to wounds b/l; midfoot collapse noted L>R NEURO: gross and protective sensation diminished b/l - Neurological Exam Neurological Exam: Alert, Awake, Oriented x3 - Psychiatric Exam Psychiatric exam: Normal Affect, Normal Mood Assessment and Plan - Assessment and Plan (Free Text) Assessment: 58M with b/l stasis ulcerations and psoriasis Plan: Patient seen and evaluated with Dr. Estrada VSS, absent leukocytosis Wounds cleansed with sterile saline and dressed with lotrisone, maxorb, xeroform, dry sterile dressing and TREMAYNE Wound culture ordered - Gram Negative rods, Gram positive Cocci B/l tib/fib x-rays ordered - soft tissue swelling without acute articular or osseous abnormality, no subcutaneous air seen Continue management per primary care team Upon d/c to f/u with Dr. Hernandez/Sean in wound center as outpatient Will continue to follow
--- NOTE | 2019-01-24 13:02 | CP.PCM.PN ---
<Elder Morton - Last Filed: 01/24/19 12:50> Subjective - Date & Time of Evaluation Date of Evaluation: 01/24/19 Time of Evaluation: 08:00 - Subjective Subjective: Elder Morton, PGY1 Medicine Progress Note for Dr. Barger Patient seen and examined at bedside this morning. No adverse overnight events. Patient denies headache, fever, chills, n/v/d, chest pain, sob, pain in his legs. He is AAOx3. He was seen ambulating to bathroom, gait is somewhat waddling but stable. A full 12 point ROS was conducted and unremarkable except as stated above Objective - Vital Signs/Intake and Output Vital Signs (last 24 hours): Temp Pulse Resp BP Pulse Ox 97.9 F 72 20 150/94 H 94 L 01/24/19 06:00 01/24/19 06:00 01/24/19 06:00 01/24/19 06:00 01/24/19 06:00 Intake and Output: 01/24/19 01/24/19 06:59 18:59 Intake Total 180 Output Total 1000 Balance -820 - Medications Medications: Current Medications Betamethasone/Clotrimazole (Lotrisone) 0 gm TOP BID [facility] Last Admin: 01/24/19 09:47 Dose: Not Given Divalproex Sodium (Mikael Dr(*Bid*)) 500 mg PO BID [facility]; Protocol Last Admin: 01/24/19 10:00 Dose: Not Given Heparin Sodium (Porcine) (Heparin) 5,000 units SC Q8 [facility]; Protocol Last Admin: 01/24/19 06:23 Dose: 5,000 units Vancomycin HCl (Vancomycin 1gm) 1 gm in 250 mls @ 167 mls/hr IVPB Q12 [facility]; Protocol Last Admin: 01/24/19 09:44 Dose: 167 mls/hr Piperacillin Sod/Tazobactam Sod (Zosyn 3.375 In Ns 100ml) 100 mls @ 25 mls/hr IVPB Q8 [facility]; Protocol Stop: 01/28/19 22:01 Last Admin: 01/24/19 06:24 Dose: 25 mls/hr Lorazepam (Ativan) 2 mg IVP Q4H PRN; Protocol PRN Reason: Seizure activity - Labs Labs: 01/24/19 06:30 01/24/19 06:30 - Constitutional Appears: No Acute Distress - Head Exam Head Exam: ATRAUMATIC, NORMAL INSPECTION, NORMOCEPHALIC - Eye Exam Eye Exam: PERRL. absent: Normal appearance Additional comments: Chronic lazy eye - ENT Exam ENT Exam: Mucous Membranes Moist - Respiratory Exam Respiratory Exam: Clear to Auscultation Bilateral, NORMAL BREATHING PATTERN. absent: Rales, Rhonchi, Wheezes - Cardiovascular Exam Cardiovascular Exam: REGULAR RHYTHM, +S1, +S2 - GI/Abdominal Exam GI & Abdominal Exam: Normal Bowel Sounds, Soft. absent: Tenderness Additional comments: Umbilical hernia - Extremities Exam Extremities exam: Positive for: pedal pulses present (Diminished). Negative for: normal capillary refill Additional comments: Scaly bilateral LE dermatitis. Ulcerations in both lower legs, dressing in place bilaterally by wound care - improved since admission. Sensation intact to bilateral distal lower ext. - Neurological Exam Neurological exam: Alert, CN II-XII Intact, Oriented x3 - Psychiatric Exam Psychiatric exam: Normal Affect, Normal Mood Additional comments: Assessment and Plan - Assessment and Plan (Free Text) Assessment: Patient is a 58 year old male with past medical history of schizophrenia, seizure (non-compliant with medication), psoriasis, umbilical hernia, obesity presents to the ED accompanied by family for medical evaluation s/p witnessed seizure at home prior to arrival. Patient admitted for Seizures and Bilateral Lower Extremity Cellulitis and Ulcerations in the setting of chronic venous stasis. Plan: Seizure - c/w Depakote 500mg PO BID - c/w Ativan 2mg q4 prn for seizures - c/w neurochecks, seizure precautions, and aspiration precautions - continue to monitor for seizures; no seizures inpatient at this time - stable - EEG: abnormal, shows generalized epilepsy - Neurology on consult (Dr. Turner). Recs appreciated. Bilateral Lower Extremity Cellulitis/Ulcerations - complicated by bacteremia - c/w vanco and zosyn (started 01/21); further recs from ID - Wound cx L-leg and R-leg: Providencia Rettgeri, Morganella Morganii, Gram Po sitive Cocci - Blood cx gram positive cocci x2 - left and right foot XR: severe flattening of plantar arch. No osteo or gas forming infection. - LE arterial doppler: normal LISA. - tibula/fibula XR bilateral: soft tissue swelling without acute articular/osseous abnormalities. - LE venous doppler: no DVT - Wound care is on board - Podiatry on consult (Dr. Hernandez). Recs appreciated. - ID on consult (Dr. Orona). Recs appreciated. Schizophrenia - Psych is on consult (Dr. Hartley). Recs appreciated. - Patient wants to AMA but lacks capacity DVT ppx: hep sc GI ppx: not indicated Diet: Regular Dispo: Patient will be monitored on remote telemetry. Further recs from ID in regards to antibiotics given wound and blood cx results. Pending PT recs. Case was discussed and reviewed with Attending Physician, Dr. Brager <Agustin Barger - Last Filed: 01/24/19 13:56> Objective - Vital Signs/Intake and Output Vital Signs (last 24 hours): Temp Pulse Resp BP Pulse Ox 97.9 F 72 20 150/94 H 94 L 01/24/19 06:00 01/24/19 06:00 01/24/19 06:00 01/24/19 06:00 01/24/19 06:00 Intake and Output: 01/24/19 01/24/19 06:59 18:59 Intake Total 180 Output Total 1000 Balance -820 - Medications Medications: Current Medications Betamethasone/Clotrimazole (Lotrisone) 0 gm TOP BID EMELY Last Admin: 01/24/19 09:47 Dose: Not Given Divalproex Sodium (Depakote Dr(*Bid*)) 500 mg PO BID [facility]; Protocol Last Admin: 01/24/19 10:00 Dose: Not Given Heparin Sodium (Porcine) (Heparin) 5,000 units SC Q8 [facility]; Protocol Last Admin: 01/24/19 13:36 Dose: 5,000 units Vancomycin HCl (Vancomycin 1gm) 1 gm in 250 mls @ 167 mls/hr IVPB Q12 [facility]; Protocol Last Admin: 01/24/19 09:44 Dose: 167 mls/hr Piperacillin Sod/Tazobactam Sod (Zosyn 3.375 In Ns 100ml) 100 mls @ 25 mls/hr IVPB Q8 [facility]; Protocol Stop: 01/28/19 22:01 Last Admin: 01/24/19 13:36 Dose: 25 mls/hr Lorazepam (Ativan) 2 mg IVP Q4H PRN; Protocol PRN Reason: Seizure activity - Labs Labs: 01/24/19 06:30 01/24/19 06:30 Attending/Attestation - Attestation I have personally seen and examined this patient.: Yes I have fully participated in the care of the patient.: Yes I have reviewed all pertinent clinical information, including history, physical exam and plan: Yes Notes (Text): 01/24/19 13:53 58 year old male with past medical history of schizophrenia, seizure, psoriasis and medication noncompliance who presented after witnessed seizure at home. Neurology is following for seizure disorder and started on depakote. EEG was reviewed as above. Patient refused CT head. He was also found to have extensive bilateral lower extremity ulcerations and cellulitis overlying chronic chronic venous statis. Bilateral tibula/fibula xrays showed soft tissue swelling. Feet xray were reviewed as well. LE doppler negative for DVT. Arterial doppler was also normal. Wound culture is growing Providencia Rettgeri, Morganella Morganii, and gram positive cocc. BCx x 2 is a lso positive for gram positive cocci. Continue with iv antibiotics as per ID and wound care as per podiatry. Follow up on repeat BCx and echocardiogram. Psychiatry evaluation was appreciated as patient initially wanted to sign out AMA (lacked decision making capacity of signing out against medical advice). Currently he is agreeable to stay. PT evaluation is pending. Agustin Barger MD Hospitalist.
--- NOTE | 2019-01-24 16:28 | PN ---
DATE: 01/24/2019 SUBJECTIVE: The patient seen in 364 earlier. No fevers and no chills. PHYSICAL EXAMINATION: VITAL SIGNS: Temperature is 98, blood pressure is 150/90, respiratory rate is 20, heart rate is 80. HEENT: Unremarkable. NECK: Supple. LUNGS: Decreased breath sounds. HEART: Normal S1 and S2. ABDOMEN: Soft, nontender. No organomegaly. No rebound or guarding. No masses. LABORATORY DATA: White count of 7.7. Sed rate is 114. Chemistries reveal BUN of 19, creatinine is 0.9. Urinalysis is noted. Microbiology reveals blood cultures are Gram-positive cocci in chains. Another blood cultures are Gram-positive cocci also; however, this is in clusters. The left leg cultures are Gram-negative yanni and Gram-positive cocci, and the right leg cultures are Gram-negative yanni and Gram-positive cocci. Review of orders; review of the patient should be on vanco and Zosyn. ASSESSMENT AND PLAN: This is a 58-year-old male with psoriasis, seizures and morbid obesity with BMI of 40, schizophrenia, and now is Gram-positive cocci bacteremia. Although, he never had fevers, he did have tachycardia on admission. No shortness of breath reported. No white count and/or bandemia reported. repeat blood cultures x2. Check on the identification and sensitivity of the gram-positive cocci both in clusters and chains in the blood. We will also check on the identification of gram-positive cocci in the legs and gram-negative yanni. We will also order an echocardiogram to rule out endocarditis. We will repeat blood cultures. I will make further recommendations. We will follow with you. We will also order a vanco trough level. The patient is given vanco at 10:00 a.m. and at 10:00 p.m. We will order vanco trough level for tomorrow at 09:00 a.m. an hour before tomorrow's 10:00 a.m. dose. Hasmukh Lopez MD
--- NOTE | 2019-01-24 22:18 | CON ---
DATE: 01/24/2019 HISTORY OF PRESENT ILLNESS: The patient is a 58-year-old male with no prior formal psychiatric history though questionable diagnosis of schizophrenia, who is being treated on the medical floor for seizures and cellulitis, was refusing treatment while he was in the ER. Dr. Duque assessed the patient in the ER, found that he lacked capacity and the patient was brought to the medical floor and is generally being accepting with medical treatment since transfer from the ER. I reviewed recent notes which indicate that the patient generally can calm without any behavioral issues. I met with him at bedside this morning and he appears to be much more nourished and in healthy appearing and brighter and groomed with our prior encounter approximately 2 days ago. The patient reports that he is feeling better. His mood is improving. Energy is improving and the pain of lower extremity is also improving and he reports some gratefulness for her help at this time. The patient is not overtly communicative, but he is responsive, superficially, friendly and cooperative with my questioning. Again, he denies any depression, anxiety, suicidal thoughts, hallucinations and appears less guarded than our prior encounters. His insight and judgment are considered to be fair and improved at this time. PHYSICAL EXAMINATION: VITAL SIGNS: Reviewed. LABORATORY DATA: Reviewed. MEDICATIONS: Include Depakote 500 mg b.i.d. likely due to the patient's seizures. IMPRESSION: Improving delirium, rule out contribution of untreated high function paranoid schizophrenia, paranoid personality disorder or schizotypal personality disorder. RECOMMENDATIONS: There are no new psychiatric recommendations at this time. The patient is accepting treatments and there have been no major behavioral issues, psychiatrist are not re-consult p.r.n. Cuauhtemoc Bolden MD
[2019-01-25] MEDS: Piperacillin/Tazobact 3.375 gm 100 ML IVPB SCH ×3 (06:19→22:10)
[2019-01-25 06:39] LABS: BASO # 0.02 K/mm3 (0.0-2.0); BASO % 0.2 % (0.0-3.0); EOS # 0.3 (0.0-0.7); EOS % 2.9 % (1.5-5.0); HEMOGLOBIN 12.6 g/dL (14.0-18.0); LYMPH # 1.6 (1.2-3.4); LYMPH % 17.5 % (22.0-35.0); MEAN CELL VOLUME 96.3 fl (80.0-105.0); MEAN CORPUSCULAR HEMOGLOBIN 31.1 pg (25.0-35.0); MEAN CORPUSCULAR HGB CONC 32.3 g/dl (31.0-37.0); MEAN PLATELET VOLUME 9.7 fl (7.0-11.0); MONO # 1.8 (0.1-0.6); RBC 4.05 10^6/uL (3.5-6.1); RED CELL DISTRIBUTION WIDTH 15.9 % (11.5-14.5); WHITE BLOOD COUNT 9.2 10^3/uL (4.5-11.0)
[2019-01-25 07:36] LABS: ALB/GLOB RATIO 0.6 (1.1-1.8); ALT/SGPT 45 U/L (7-56); AST/SGOT 47 U/L (17-59); BLOOD UREA NITROGEN 22 mg/dL (7-21); GFR NON-AFRICAN AMERICAN > 60
--- NOTE | 2019-01-25 08:43 | CP.PCM.PN ---
<Elder Morton - Last Filed: 01/25/19 13:55> Subjective - Date & Time of Evaluation Date of Evaluation: 01/25/19 Time of Evaluation: 08:00 - Subjective Subjective: Elder Morton PGY1 Medicine Progress Note for Dr. Lubin Patient seen at bedside this morning. Vital signs stable. No adverse overnight events. Patient seen sitting out of bed to chair. Denies f/c, headache, n/v/d, bowel/bladder changes. A full 12 point ROS was conducted and unremarkable except as stated above. Objective - Vital Signs/Intake and Output Vital Signs (last 24 hours): Temp Pulse Resp BP Pulse Ox 98 F 65 20 107/62 94 L 01/25/19 08:12 01/25/19 08:12 01/25/19 08:12 01/25/19 08:12 01/25/19 08:12 Intake and Output: 01/25/19 01/25/19 06:59 18:59 Intake Total 120 Output Total 700 Balance -580 - Medications Medications: Current Medications Betamethasone/Clotrimazole (Lotrisone) 0 gm TOP BID EMELY Last Admin: 01/24/19 18:37 Dose: Not Given Divalproex Sodium (Depakote Dr(*Bid*)) 500 mg PO BID EMELY; Protocol Last Admin: 01/24/19 18:36 Dose: Not Given Heparin Sodium (Porcine) (Heparin) 5,000 units SC Q8 EMELY; Protocol Last Admin: 01/25/19 06:19 Dose: 5,000 units Vancomycin HCl (Vancomycin 1gm) 1 gm in 250 mls @ 167 mls/hr IVPB Q12 [facility]; Protocol Last Admin: 01/24/19 21:25 Dose: 167 mls/hr Piperacillin Sod/Tazobactam Sod (Zosyn 3.375 In Ns 100ml) 100 mls @ 25 mls/hr IVPB Q8 [facility]; Protocol Stop: 01/28/19 22:01 Last Admin: 01/25/19 06:19 Dose: 25 mls/hr Lorazepam (Ativan) 2 mg IVP Q4H PRN; Protocol PRN Reason: Seizure activity - Labs Labs: 01/25/19 05:30 01/25/19 05:30 - Constitutional Appears: No Acute Distress - Head Exam Head Exam: ATRAUMATIC, NORMAL INSPECTION, NORMOCEPHALIC - Eye Exam Eye Exam: PERRL. absent: Normal appearance Additional comments: Chronic lazy eye - ENT Exam ENT Exam: Mucous Membranes Moist - Respiratory Exam Respiratory Exam: Clear to Auscultation Bilateral, NORMAL BREATHING PATTERN. absent: Rales, Rhonchi, Wheezes - Cardiovascular Exam Cardiovascular Exam: REGULAR RHYTHM, +S1, +S2 - GI/Abdominal Exam GI & Abdominal Exam: Normal Bowel Sounds, Soft. absent: Tenderness Additional comments: Umbilical hernia - Extremities Exam Extremities exam: Positive for: pedal pulses present (Diminished). Negative for: normal capillary refill Additional comments: Scaly bilateral LE dermatitis. Ulcerations in both lower legs, dressing in place bilaterally by wound care - improved since admission. Sensation intact to bilateral distal lower ext. - Neurological Exam Neurological exam: Alert, CN II-XII Intact, Oriented x3 - Psychiatric Exam Psychiatric exam: Normal Affect, Normal Mood Additional comments: Assessment and Plan - Assessment and Plan (Free Text) Assessment: Patient is a 58 year old male with past medical history of schizophrenia, seizure (non-compliant with medication), psoriasis, umbilical hernia, obesity presents to the ED accompanied by family for medical evaluation s/p witnessed seizure at home prior to arrival. Patient admitted for Seizures and Bilateral Lower Extremity Cellulitis and Ulcerations in the setting of chronic venous ghanshyam is. Plan: Bilateral Lower Extremity Cellulitis/Ulcerations - complicated by bacteremia, r/o endocarditis - Blood cx (01/21): coagulase negative staph and strep sangius (consider contamination; patient is not IVDA and has no internal hardware/mechanical devices) - f/u repeat blood Cx x2 - Given blood cx findings, f/u echo findings to r/o vegetations for possible endocarditis - c/w vanco and zosyn (started 01/21) - f/u vanc trough level - Wound cx L-leg and R-leg: Providencia Rettgeri, Morganella Morganii, Gram Positive Cocci - Left and right foot XR: severe flattening of plantar arch. No osteo or gas forming infection. - LE arterial doppler: normal LISA. - tibula/fibula XR bilateral: soft tissue swelling without acute articular/osseous abnormalities. - LE venous doppler: no DVT - Wound care is on board - Podiatry on consult (Dr. Hernandez). Recs appreciated. - ID on consult (Dr. Orona). Recs appreciated. Seizure - resolved - c/w Depakote 500mg PO BID - c/w Ativan 2mg q4 prn for seizures - c/w neurochecks, seizure precautions, and aspiration precautions - continue to monitor for seizures; no seizures inpatient at this time - stable - EEG: abnormal, shows generalized epilepsy - Neurology on consult (Dr. Turner). Recs appreciated. Schizophrenia - f/u psych recs in regards to possible involuntary admission given that patient has the inability to take care of himself - Psych is on consult (Dr. Hratley). Recs appreciated. - Patient lacks capacity DVT ppx: hep sc GI ppx: not indicated Diet: Regular PT recommends SONIA, if declines then HWS. Dispo: Patient will be monitored on remote telemetry. Pending repeat blood cx and echo to r/o endocarditis given previous blood cx findings. Case was discussed and reviewed with Attending Physician, Dr. Lubin. <Dena Lubin - Last Filed: 01/29/19 16:04> Objective - Vital Signs/Intake and Output Vital Signs (last 24 hours): Temp Pulse Resp BP Pulse Ox 97.6 F 60 18 110/70 93 L 01/29/19 12:00 01/29/19 14:00 01/29/19 12:00 01/29/19 12:00 01/29/19 06:00 Intake and Output: 01/29/19 01/29/19 06:59 18:59 Intake Total 240 Output Total 950 Balance -710 - Medications Medications: Current Medications Amiodarone HCl (Cordarone) 200 mg PO DAILY [facility] Last Admin: 01/29/19 10:13 Dose: 200 mg Apixaban (Eliquis) 2.5 mg PO BID [facility]; Protocol Last Admin: 01/29/19 10:14 Dose: 2.5 mg Atenolol (Tenormin) 12.5 mg PO BID [facility] Last Admin: 01/29/19 10:13 Dose: 12.5 mg Betamethasone/Clotrimazole (Lotrisone) 0 gm TOP BID [facility] Last Admin: 01/29/19 08:00 Dose: 1 applic Divalproex Sodium (Depakote Dr(*Bid*)) 500 mg PO BID [facility]; Protocol Last Admin: 01/29/19 10:14 Dose: 500 mg Ceftriaxone Sodium (Rocephin 2 Gm Ivpb) 2 gm in 100 mls @ 100 mls/hr IVPB DAILY [facility]; Protocol Stop: 02/17/19 10:01 Last Admin: 01/29/19 10:15 Dose: 100 mls/hr Lorazepam (Ativan) 2 mg IVP Q4H PRN; Protocol PRN Reason: Seizure activity Multi-Ingredient Ointment (Hydrophor Oint) 0 gm TOP Q6H [facility] Last Admin: 01/29/19 13:48 Dose: 1 applic Pantoprazole Sodium (Protonix Ec Tab) 40 mg PO DAILY [facility] Last Admin: 01/29/19 10:14 Dose: 40 mg Verapamil HCl (Calan Tab) 40 mg PO TID EMELY Last Admin: 01/29/19 13:47 Dose: 40 mg Verapamil HCl (Verapamil Inj) 2.5 mg IVP Q6H PRN PRN Reason: For Heart rate >130 - Labs Labs: 01/29/19 06:00 01/29/19 06:00 Attending/Attestation - Attestation I have personally seen and examined this patient.: Yes I have fully participated in the care of the patient.: Yes I have reviewed all pertinent clinical information, including history, physical exam and plan: Yes Notes (Text): 01/29/19 16:04 Medical record note made by the resident after discussion with my direction and input after the patient was personally seen and examined by me. I have reviewed the chart and agree that the record accurately reflects by personal performance of the history, physical exam, data review, and medical decision-making, in the course for the patient. I have also personally directed the plan of care.
[2019-01-25] MEDS: Divalproex 500 mg DR(BID formulation) PO SCH ×2 (09:35→17:44)
[2019-01-25] MEDS: Vancomycin 1gm in NS 250ml 1 GM/250 ML BAG IVPB SCH ×2 (09:38→22:09)
[2019-01-25] MEDS: Clotrimazole/Betamethasone Cream(15 gm) TOP SCH ×2 (12:04→17:44)
--- NOTE | 2019-01-25 12:41 | CP.PCM.PN ---
Subjective - Date & Time of Evaluation Date of Evaluation: 01/25/19 Time of Evaluation: 12:33 - Subjective Subjective: Podiatry progress note - Drs. Estrada/David 58 y/o male patient seen and evaluated this AM with Dr. Hernandez for b/l LE ulcerations and xerotic/scaling legs. Patient denies any acute overnight events. Patient states feeling much better but he is still having burning pain at his left lower extremity. He denies any overnight n/v/f/c/sob and offers no other pedal complaints at this time. Objective - Vital Signs/Intake and Output Vital Signs (last 24 hours): Temp Pulse Resp BP Pulse Ox 98 F 65 20 107/62 94 L 01/25/19 08:12 01/25/19 08:12 01/25/19 08:12 01/25/19 08:12 01/25/19 08:12 Intake and Output: 01/25/19 01/25/19 06:59 18:59 Intake Total 120 Output Total 700 Balance -580 - Medications Medications: Current Medications Betamethasone/Clotrimazole (Lotrisone) 0 gm TOP BID EMELY Last Admin: 01/25/19 12:04 Dose: Not Given Divalproex Sodium (Depakote Dr(*Bid*)) 500 mg PO BID [facility]; Protocol Last Admin: 01/25/19 09:35 Dose: Not Given Heparin Sodium (Porcine) (Heparin) 5,000 units SC Q8 EMELY; Protocol Last Admin: 01/25/19 06:19 Dose: 5,000 units Vancomycin HCl (Vancomycin 1gm) 1 gm in 250 mls @ 167 mls/hr IVPB Q12 EM[facility]; Protocol Last Admin: 01/25/19 09:38 Dose: 167 mls/hr Piperacillin Sod/Tazobactam Sod (Zosyn 3.375 In Ns 100ml) 100 mls @ 25 mls/hr IVPB Q8 EMELY; Protocol Stop: 01/28/19 22:01 Last Admin: 01/25/19 06:19 Dose: 25 mls/hr Lorazepam (Ativan) 2 mg IVP Q4H PRN; Protocol PRN Reason: Seizure activity - Labs Labs: 01/25/19 05:30 01/25/19 05:30 - Constitutional Appears: Well, Non-toxic, No Acute Distress - Head Exam Head Exam: ATRAUMATIC, NORMOCEPHALIC - Extremities Exam Additional comments: B/l LE focused VASC: DP and PT pulses non palpable 2/2 moderate edema (L>R); cap refill <3 seconds to all digits; Temp gradient warm to warm from proximal to distal b/l; p edal hair growth absent. NEURO: Gross and protective sensation diminished b/l. DERM: LLE; Medial leg wound measuring 6 cm x 5 cm x 0.2cm with granular base, hyperkeratotic rim, no probe to bone, mild malodor, no streaking appreciated, positive sero-sanguineous drainage noted; RLE; Medial malleolar wound measuring 1 cm x 1 cm x 0.1cm with granular base appreciated, no probe, no streaking, no malodor or drainage noted. Diffuse scaling and xerosis with skin cracking noted b/l. MSK: No pain on palpation to wounds b/l; midfoot collapse noted L>R - Neurological Exam Neurological Exam: Alert, Awake, Oriented x3 Assessment and Plan - Assessment and Plan (Free Text) Assessment: 58 y/o male patient seen and evaluated for b/l LE ulcerations and xerotic/scali ng legs. Plan: Patient seen and evaluated with Dr. Hernandez. Plan discussed with Dr. Hernandez. Charts, labs and vitals reviewed; Afebrile, absent leukocytosis. Wounds cleansed with sterile saline, Scales cleaned with sterile wipes and dressed with lotrisone, maxorb, xeroform, dry sterile dressing. Robert applied to the LLE. Wound culture ordered - Gram Negative rods, Gram positive Cocci B/l tib/fib x-rays: Soft tissue swelling without acute articular or osseous abnormality, no subcutaneous emphysema noted. Continue management per primary care team Upon d/c to f/u with Dr. Hernandez/Sean in wound center as outpatient Podiatry will continue to follow up the patient while in house.
--- NOTE | 2019-01-25 17:24 | CP.PCM.PCO ---
Physician Communication Note - Physician Communication Note Physician Communication Note: psychiatry signed off
--- NOTE | 2019-01-25 19:17 | CARD ---
APPROVED REPORT Date of service: 01/25/2019 EXAM: Two-dimensional and M-mode echocardiogram with Doppler and color Doppler. INDICATION Infection:Rule out subacute bacterial endocarditis 2D DIMENSIONS IVSd1.3 (0.7-1.1cm)LVDd4.5 (3.9-5.9cm) PWd1.4 (0.7-1.1cm) M-Mode DIMENSIONS Aortic Root3.80 (2.2-3.7cm)Aortic Cusp Exc.1.70 (1.5-2.0cm) Aortic Valve AoV Peak Uxgiscpd958.0cm/Scott Peak GR.8mmHg Mitral Valve E/A ratio0.0 TDI E/Lateral E'0.0E/Medial E'0.0 Pulmonary Valve PV Peak Xqzthnge80.1cm/sPV Peak Grad.2mmHg Tricuspid Valve TR Peak [id number] [id number] Peak Gr.22mmHg [id number] LEFT VENTRICLE The left ventricle is normal size. There is borderline concentric left ventricular hypertrophy. The left ventricular function is normal. The left ventricular ejection fraction is within the normal range. There is normal LV segmental wall motion. Transmitral Doppler flow pattern is Grade I-abnormal relaxation pattern. RIGHT VENTRICLE The right ventricle is normal size. There is normal right ventricular wall thickness. The right ventricular systolic function is normal. ATRIA The left atrium size is normal. The right atrium size is normal. AORTIC VALVE The aortic valve is normal in structure. There is mild aortic regurgitation. There is no aortic valvular stenosis. MITRAL VALVE The mitral valve is normal in structure. There is no mitral valve regurgitation noted. There is no mitral valve stenosis. TRICUSPID VALVE The tricuspid valve is normal in structure. There is mild tricuspid regurgitation. PULMONIC VALVE The pulmonary valve is normal in structure. There is no pulmonic valvular regurgitation. GREAT VESSELS The aortic root is mildly enlarged. <Conclusion> There is borderline concentric left ventricular hypertrophy. The left ventricular function is normal. The left ventricular ejection fraction is within the normal range. There is normal LV segmental wall motion. There is mild aortic regurgitation. The aortic root is mildly enlarged. There is mild tricuspid regurgitation. No Vegitation seen
--- NOTE | 2019-01-25 19:29 | PN ---
DATE: 01/25/2019 SUBJECTIVE: The patient is seen earlier today in room 364, bed 1. No fevers and no chills. PHYSICAL EXAMINATION: VITAL SIGNS: Temperature is 98, blood pressure is 107/60, and respiratory rate 20. HEENT: Unremarkable. NECK: Supple. LUNGS: Have decreased breath sounds. HEART: Sounds normal, S1 and S2. ABDOMEN: Soft, nontender. LABORATORY EXAMINATION: Reveals a white count of 9.2, hemoglobin of 12. Chemistries are noted and HIV is negative. Microbiology reveals the blood cultures are negative. Initial blood cultures with Strep sanguinis in one bottle on 01/21. The leg cultures are noted. Another blood cultures have coag-negative staph. Review of orders reveals the patient to be on vancomycin and Zosyn. ASSESSMENT AND PLAN: This is a 58-year-old male with psoriasis, seizures, morbid obesity, body mass index of 40, schizophrenia with Streptococcus sanguinis bacteremia and a coagulase-negative Staphylococcus bacteremia, on vancomycin and Zosyn. We will continue present course. Repeat blood cultures negative. We will check on the echocardiogram. We will follow with you. Hasmukh Lopez MD
[2019-01-26] MEDS: Piperacillin/Tazobact 3.375 gm 100 ML IVPB SCH (06:44)
[2019-01-26 07:34] LABS: HEMOGLOBIN 13.5 g/dL (14.0-18.0); MEAN CELL VOLUME 96.1 fl (80.0-105.0); MEAN CORPUSCULAR HGB CONC 32.2 g/dl (31.0-37.0); MEAN PLATELET VOLUME 9.9 fl (7.0-11.0); RBC 4.36 10^6/uL (3.5-6.1)
[2019-01-26 07:52] LABS: ALB/GLOB RATIO 0.5 (1.1-1.8); ALT/SGPT 29 U/L (7-56); AST/SGOT 40 U/L (17-59); BLOOD UREA NITROGEN 23 mg/dL (7-21); CALCIUM 9.1 mg/dL (8.4-10.5); GFR NON-AFRICAN AMERICAN > 60
[2019-01-26] MEDS: Divalproex 500 mg DR(BID formulation) PO SCH ×3 (11:14→22:10)
[2019-01-26] MEDS: Vancomycin 1gm in NS 250ml 1 GM/250 ML BAG IVPB SCH (11:16)
--- NOTE | 2019-01-26 12:18 | CP.PCM.PN ---
Subjective - Date & Time of Evaluation Date of Evaluation: 01/26/19 Time of Evaluation: 12:15 - Subjective Subjective: Podiatry progress note - Drs. Estrada/David 58 y/o male patient seen and evaluated this AM with Dr. Hernandez for b/l LE ulcerations and xerotic/scaling legs. Patient denies any acute overnight events. Patient states feeling much better. He states that he is still having burning pain at his left lower extremity. He denies any overnight n/v/f/c/sob and offers no other pedal complaints at this time. Objective - Vital Signs/Intake and Output Vital Signs (last 24 hours): Temp Pulse Resp BP Pulse Ox 98.8 F 132 H 20 131/87 91 L 01/26/19 08:23 01/26/19 08:23 01/26/19 08:23 01/26/19 08:23 01/26/19 08:23 Intake and Output: 01/26/19 01/26/19 06:59 18:59 Intake Total 120 Output Total 1100 Balance -980 - Medications Medications: Current Medications Betamethasone/Clotrimazole (Lotrisone) 0 gm TOP BID [facility] Last Admin: 01/25/19 17:44 Dose: Not Given Divalproex Sodium (Depakote Dr(*Bid*)) 500 mg PO BID [facility]; Protocol Last Admin: 01/26/19 11:14 Dose: Not Given Heparin Sodium (Porcine) (Heparin) 5,000 units SC Q8 [facility]; Protocol Last Admin: 01/26/19 06:44 Dose: 5,000 units Ceftriaxone Sodium (Rocephin 2 Gm Ivpb) 2 gm in 100 mls @ 100 mls/hr IVPB DAILY [facility]; Protocol Stop: 02/17/19 10:01 Lorazepam (Ativan) 2 mg IVP Q4H PRN; Protocol PRN Reason: Seizure activity - Labs Labs: 01/26/19 07:00 01/26/19 07:00 - Constitutional Appears: Well, Non-toxic, No Acute Distress - Head Exam Head Exam: ATRAUMATIC, NORMOCEPHALIC - Extremities Exam Additional comments: B/l LE focused VASC: DP and PT pulses non palpable 2/2 moderate edema (L>R); cap refill <3 seconds to all digits; Temp gradient warm to warm from proximal to distal b/l; pedal hair growth absent. NEURO: Gross and protective sensation diminished b/l. DERM: LLE; Medial leg wound measuring 6 cm x 5 cm x 0.2cm with granular base, hyperkeratotic rim, no probe to bone, mild malodor, no streaking appreciated, positive sero-sanguineous drainage noted; RLE; Medial malleolar wound measuring 1 cm x 1 cm x 0.1cm covered with dry scab, no probe, no streaking, no malodor or drainage noted. Diffuse scaling and xerosis with skin cracking noted b/l. MSK: No pain on palpation to wounds b/l; midfoot collapse noted L>R - Neurological Exam Neurological Exam: Alert, Awake, Oriented x3 Assessment and Plan - Assessment and Plan (Free Text) Assessment: 58 y/o male patient seen and evaluated for b/l LE ulcerations and xerotic/sca ling legs. Plan: Patient seen and evaluated with Dr. Hernandez. Plan discussed with Dr. Hernandez. Charts, labs and vitals reviewed; Afebrile, absent leukocytosis. Wounds cleansed with sterile saline, Scales cleaned with sterile wipes and dressed with lotrisone, maxorb, dry sterile dressing and Robert applied to the LLE. Ordered Unna Boot and Coban to be aplied b/l starting tomorrow. Wound culture ordered - Providentia Rettgri, Morganella Morganii, Staph aureus. B/l tib/fib x-rays: Soft tissue swelling without acute articular or osseous abnormality, no subcutaneous emphysema noted. Continue management per primary care team Upon d/c to f/u with Dr. Hernandez/Sean in wound center as outpatient Podiatry will continue to follow up the patient while in house.
[2019-01-26] MEDS ORDERED: Unna Boot TOP ONE (13:54)
--- NOTE | 2019-01-26 17:02 | CP.PCM.PN ---
<Elder Morton - Last Filed: 01/26/19 16:57> Subjective - Date & Time of Evaluation Date of Evaluation: 01/26/19 Time of Evaluation: 08:00 - Subjective Subjective: Elder Morton PGY1 Medicine Progress Note for Dr. Lubin Patient seen at bedside this morning. Vital signs stable. No adverse overnight events. Patient seen sitting out of bed to chair. Denies f/c, headache, n/v/d, bowel/bladder changes. A full 12 point ROS was conducted and unremarkable except as stated above. Objective - Vital Signs/Intake and Output Vital Signs (last 24 hours): Temp Pulse Resp BP Pulse Ox 98.8 F 132 H 20 131/87 91 L 01/26/19 08:23 01/26/19 08:23 01/26/19 08:23 01/26/19 08:23 01/26/19 08:23 Intake and Output: 01/26/19 01/26/19 06:59 18:59 Intake Total 120 Output Total 1100 Balance -980 - Medications Medications: Current Medications Betamethasone/Clotrimazole (Lotrisone) 0 gm TOP BID [facility] Last Admin: 01/25/19 17:44 Dose: Not Given Divalproex Sodium (Depakote Dr(*Bid*)) 500 mg PO BID [facility]; Protocol Last Admin: 01/26/19 11:14 Dose: Not Given Heparin Sodium (Porcine) (Heparin) 5,000 units SC Q8 [facility]; Protocol Last Admin: 01/26/19 16:14 Dose: 5,000 units Ceftriaxone Sodium (Rocephin 2 Gm Ivpb) 2 gm in 100 mls @ 100 mls/hr IVPB DAILY [facility]; Protocol Stop: 02/17/19 10:01 Lorazepam (Ativan) 2 mg IVP Q4H PRN; Protocol PRN Reason: Seizure activity Multi-Ingredient Ointment (Hydrophor Oint) 0 gm TOP Q6H [facility] - Labs Labs: 01/26/19 07:00 01/26/19 07:00 - Constitutional Appears: No Acute Distress - Head Exam Head Exam: ATRAUMATIC, NORMAL INSPECTION, NORMOCEPHALIC - Eye Exam Eye Exam: PERRL. absent: Normal appearance Additional comments: Chronic lazy eye - ENT Exam ENT Exam: Mucous Membranes Moist - Respiratory Exam Respiratory Exam: Clear to Auscultation Bilateral, NORMAL BREATHING PATTERN. absent: Rales, Rhonchi, Wheezes - Cardiovascular Exam Cardiovascular Exam: REGULAR RHYTHM, +S1, +S2 - GI/Abdominal Exam GI & Abdominal Exam: Normal Bowel Sounds, Soft. absent: Tenderness Additional comments: Umbilical hernia - Extremities Exam Extremities exam: Positive for: pedal pulses present (Diminished). Negative for: normal capillary refill Additional comments: Scaly bilateral LE dermatitis. Ulcerations in both lower legs, dressing in place bilaterally by wound care - improved since admission. Sensation intact to bilateral distal lower ext. - Neurological Exam Neurological exam: Alert, CN II-XII Intact, Oriented x3 - Psychiatric Exam Psychiatric exam: Normal Affect, Normal Mood Additional comments: Assessment and Plan - Assessment and Plan (Free Text) Assessment: Patient is a 58 year old male with past medical history of schizophrenia, seizure (non-compliant with medication), psoriasis, umbilical hernia, obesity presents to the ED accompanied by family for medical evaluation s/p witnessed seizure at home prior to arrival. Patient admitted for Seizures and Bilateral Lower Extremity Cellulitis and Ulcerations in the setting of chronic venous stasis. Plan: Bilateral Lower Extremity Cellulitis/Ulcerations - complicated by bacteremia - As per ID recs - patient will need Rocephin IV 2g daily for a total of 21 days. Will need midline placement and SW/CMx to set up outpatient antibiotics. - Blood cx (01/21): coagulase negative staph and strep sangius; repeat blood cx negative x1 -- this is likely contamination as patient is not IVDA and has no internal hardware/mechanical devices - Echo: no vegetations - c/w vanco and zosyn (started 01/21) - vanc trough level 12.9 - Wound cx L-leg and R-leg: Providencia Rettgeri, Morganella Morganii, Gram Positive Cocci - Left and right foot XR: severe flattening of plantar arch. No osteo or gas forming infection. - LE arterial doppler: normal LISA. - tibula/fibula XR bilateral: soft tissue swelling without acute articular/osseous abnormalities. - LE venous doppler: no DVT - Wound care is on board - Podiatry on consult (Dr. Hernandez). Recs appreciated. - ID on consult (Dr. Orona). Recs appreciated. Seizure - resolved - c/w Depakote 500mg PO BID - c/w Ativan 2mg q4 prn for seizures - c/w neurochecks, seizure precautions, and aspiration precautions - continue to monitor for seizures; no seizures inpatient at this time - stable - EEG: abnormal, shows generalized epilepsy - Neurology on consult (Dr. Turner). Recs appreciated. Schizophrenia - Patient has capacity as per Psych. They signed off the case. - Psych is on consult (Dr. Hartley). Recs appreciated. DVT ppx: hep sc GI ppx: not indicated Diet: Regular PT re-evaluation - recommend home physical therapy. Dispo: Patient will be monitored on remote telemetry. Pending midline. Pending SW/CMx to set up outpatient antibiotics. PT recs home physical therapy. Likely discharge tomorrow. Case was discussed and reviewed with Attending Physician, Dr. Lubin. <Dena Lubin - Last Filed: 01/29/19 16:03> Objective - Vital Signs/Intake and Output Vital Signs (last 24 hours): Temp Pulse Resp BP Pulse Ox 97.6 F 60 18 110/70 93 L 01/29/19 12:00 01/29/19 14:00 01/29/19 12:00 01/29/19 12:00 01/29/19 06:00 Intake and Output: 01/29/19 01/29/19 06:59 18:59 Intake Total 240 Output Total 950 Balance -710 - Medications Medications: Current Medications Amiodarone HCl (Cordarone) 200 mg PO DAILY [facility] Last Admin: 01/29/19 10:13 Dose: 200 mg Apixaban (Eliquis) 2.5 mg PO BID [facility]; Protocol Last Admin: 01/29/19 10:14 Dose: 2.5 mg Atenolol (Tenormin) 12.5 mg PO BID [facility] Last Admin: 01/29/19 10:13 Dose: 12.5 mg Betamethasone/Clotrimazole (Lotrisone) 0 gm TOP BID [facility] Last Admin: 01/29/19 08:00 Dose: 1 applic Divalproex Sodium (Depdede Dr(*Bid*)) 500 mg PO BID [facility]; Protocol Last Admin: 01/29/19 10:14 Dose: 500 mg Ceftriaxone Sodium (Rocephin 2 Gm Ivpb) 2 gm in 100 mls @ 100 mls/hr IVPB DAILY [facility]; Protocol Stop: 02/17/19 10:01 Last Admin: 01/29/19 10:15 Dose: 100 mls/hr Lorazepam (Ativan) 2 mg IVP Q4H PRN; Protocol PRN Reason: Seizure activity Multi-Ingredient Ointment (Hydrophor Oint) 0 gm TOP Q6H [facility] Last Admin: 01/29/19 13:48 Dose: 1 applic Pantoprazole Sodium (Protonix Ec Tab) 40 mg PO DAILY [facility] Last Admin: 01/29/19 10:14 Dose: 40 mg Verapamil HCl (Calan Tab) 40 mg PO TID [facility] Last Admin: 01/29/19 13:47 Dose: 40 mg Verapamil HCl (Verapamil Inj) 2.5 mg IVP Q6H PRN PRN Reason: For Heart rate >130 - Labs Labs: 01/29/19 06:00 01/29/19 06:00 Attending/Attestation - Attestation I have personally seen and examined this patient.: Yes I have fully participated in the care of the patient.: Yes I have reviewed all pertinent clinical information, including history, physical exam and plan: Yes Notes (Text): 01/29/19 16:03 Medical record note made by the resident after discussion with my direction and input after the patient was personally seen and examined by me. I have reviewed the chart and agree that the record accurately reflects by personal performance of the history, physical exam, data review, and medical decision-making, in the course for the patient. I have also personally directed the plan of care.
[2019-01-26] MEDS ORDERED: Enoxaparin 120 mg Syringe SC SCH (18:30)
[2019-01-26 18:52] LABS: HEMOGLOBIN 14.2 g/dL (14.0-18.0); MEAN CELL VOLUME 96.2 fl (80.0-105.0); MEAN CORPUSCULAR HEMOGLOBIN 32.1 pg (25.0-35.0); MEAN CORPUSCULAR HGB CONC 33.3 g/dl (31.0-37.0); MEAN PLATELET VOLUME 9.6 fl (7.0-11.0); RBC 4.43 10^6/uL (3.5-6.1); RED CELL DISTRIBUTION WIDTH 15.9 % (11.5-14.5); WHITE BLOOD COUNT 8.7 10^3/uL (4.5-11.0)
[2019-01-26 19:06] LABS: ALB/GLOB RATIO 0.5 (1.1-1.8); ALBUMIN 3.3 g/dL (3.0-4.8); ALT/SGPT 34 U/L (7-56); AST/SGOT 42 U/L (17-59); BLOOD UREA NITROGEN 27 mg/dL (7-21); CALCIUM 9.2 mg/dL (8.4-10.5); GFR NON-AFRICAN AMERICAN 57
[2019-01-26 19:23] LABS: TROPONIN I 0.08 ng/mL
--- NOTE | 2019-01-26 20:24 | CP.PCM.PN ---
<Og Chong - Last Filed: 01/26/19 21:41> Subjective - Date & Time of Evaluation Date of Evaluation: 01/26/19 Time of Evaluation: 18:00 - Subjective Subjective: Patient HR was found to be in 140s - nurse paged me and ekg was ordered which showed Atrial Fibrillation with Rapid Ventricular Response w/ HR in 140s. Patient's blood pressure was normal (110s/70s) and he was asymptomatic. #Hemodynamically stable new-onset AFib with RVR -CMP, CBC, Serial Trops, TSH was ordered -started metoprolol 25mg po BID -cardizem 10mg given at 630pm -cardizem 10mg given at approx 645pm -> HR improved from 150s to 130s -transfer to telemetry -start cardizem non-titratable drip once on telemetry floor -start therapeutic lovenox 100mg sc bid (CHADVASc = 2) -consult cardiology for new-onset AFib Seen and discussed with Dr Lubin Objective - Vital Signs/Intake and Output Vital Signs (last 24 hours): Temp Pulse Resp BP Pulse Ox 98.8 F 136 H 20 107/71 91 L 01/26/19 08:23 01/26/19 18:38 01/26/19 08:23 01/26/19 18:38 01/26/19 08:23 - Medications Medications: Current Medications Betamethasone/Clotrimazole (Lotrisone) 0 gm TOP BID [facility] Last Admin: 01/25/19 17:44 Dose: Not Given Diltiazem HCl (Cardizem) 10 mg IVP Q6H PRN PRN Reason: Heart rate Last Admin: 01/26/19 18:38 Dose: 10 mg Divalproex Sodium (Depakote Dr(*Bid*)) 500 mg PO BID [facility]; Protocol Last Admin: 01/26/19 18:14 Dose: Not Given Enoxaparin Sodium (Lovenox) 110 mg SC Q12H [facility]; Protocol Ceftriaxone Sodium (Rocephin 2 Gm Ivpb) 2 gm in 100 mls @ 100 mls/hr IVPB DAILY [facility]; Protocol Stop: 02/17/19 10:01 Lorazepam (Ativan) 2 mg IVP Q4H PRN; Protocol PRN Reason: Seizure activity Metoprolol Tartrate (Lopressor) 25 mg PO 0800,1800 [facility] Multi-Ingredient Ointment (Hydrophor Oint) 0 gm TOP Q6H [facility] - Labs Labs: 01/26/19 18:40 01/26/19 18:40 <Dena Lubin - Last Filed: 01/29/19 16:03> Objective - Vital Signs/Intake and Output Vital Signs (last 24 hours): Temp Pulse Resp BP Pulse Ox 97.6 F 60 18 110/70 93 L 01/29/19 12:00 01/29/19 14:00 01/29/19 12:00 01/29/19 12:00 01/29/19 06:00 Intake and Output: 01/29/19 01/29/19 06:59 18:59 Intake Total 240 Output Total 950 Balance -710 - Medications Medications: Current Medications Amiodarone HCl (Cordarone) 200 mg PO DAILY [facility] Last Admin: 01/29/19 10:13 Dose: 200 mg Apixaban (Eliquis) 2.5 mg PO BID [facility]; Protocol Last Admin: 01/29/19 10:14 Dose: 2.5 mg Atenolol (Tenormin) 12.5 mg PO BID [facility] Last Admin: 01/29/19 10:13 Dose: 12.5 mg Betamethasone/Clotrimazole (Lotrisone) 0 gm TOP BID [facility] Last Admin: 01/29/19 08:00 Dose: 1 applic Divalproex Sodium (Depakote Dr(*Bid*)) 500 mg PO BID [facility]; Protocol Last Admin: 01/29/19 10:14 Dose: 500 mg Ceftriaxone Sodium (Rocephin 2 Gm Ivpb) 2 gm in 100 mls @ 100 mls/hr IVPB DAILY [facility]; Protocol Stop: 02/17/19 10:01 Last Admin: 01/29/19 10:15 Dose: 100 mls/hr Lorazepam (Ativan) 2 mg IVP Q4H PRN; Protocol PRN Reason: Seizure activity Multi-Ingredient Ointment (Hydrophor Oint) 0 gm TOP Q6H [facility] Last Admin: 01/29/19 13:48 Dose: 1 applic Pantoprazole Sodium (Protonix Ec Tab) 40 mg PO DAILY [facility] Last Admin: 01/29/19 10:14 Dose: 40 mg Verapamil HCl (Calan Tab) 40 mg PO TID [facility] Last Admin: 01/29/19 13:47 Dose: 40 mg Verapamil HCl (Verapamil Inj) 2.5 mg IVP Q6H PRN PRN Reason: For Heart rate >130 - Labs Labs: 01/29/19 06:00 01/29/19 06:00 Attending/Attestation - Attestation I have personally seen and examined this patient.: Yes I have fully participated in the care of the patient.: Yes I have reviewed all pertinent clinical information, including history, physical exam and plan: Yes
[2019-01-26] MEDS ORDERED: diltiaZEM IVPB 100mg in NS 100 ML IV SCH (21:00)
--- NOTE | 2019-01-27 00:49 | PN ---
DATE: 01/26/2019 SUBJECTIVE: The patient is seen in bed, in no acute distress, was seen earlier today in room 364, bed 1. No fevers and chills. He is comfortable. PHYSICAL EXAMINATION: VITAL SIGNS: Temperature is 98, blood pressure is 130/80, respiratory rate of 20. HEENT: Unremarkable. NECK: Supple. LUNGS: Have decreased breath sounds. HEART: Normal S1, S2. ABDOMEN: Soft. LABORATORY DATA: Reveals the white count is 8.7, sed rate is at 112. Chemistries are noted. Creatinine is 1.3 and toxicology is noted. HIV is negative. Microbiology reveals strep sanguinis in the blood, one bottle, and coag-negative staph in another blood culture. The patient has Providencia, Morganella and staph aureus from the leg cultures. Providencia is sensitive to ceftriaxone, Morganella is sensitive to ceftriaxone, and staph aureus is oxacillin-sensitive staph, this is from the wound. Repeat blood cultures from the are negative. The patient had an echo actually and echo was not conclusive. Review of orders reveals now that the patient is on ceftriaxone 2 g daily. ASSESSMENT AND PLAN: A 58-year-old with psoriasis, seizures, morbid obesity, body mass index of 40, schizophrenia, Streptococcus sanguinis bacteremia, coagulase-negative Staphylococcus bacteremia with a negative echocardiogram with Streptococcus sanguinis is an organism for endocarditis. The patient does have an elevated sedimentation rate. Concerned about osteomyelitis, deep seated infection. Would complete 28 days of ceftriaxone. Today is day #3 of 28 days of ceftriaxone, with weekly complete blood count, SMA-18, sedimentation rate, C-reactive protein once weekly. Hasmukh Lopez MD
[2019-01-27 07:12] LABS: HEMOGLOBIN 12.8 g/dL (14.0-18.0); MEAN CELL VOLUME 96.1 fl (80.0-105.0); MEAN CORPUSCULAR HGB CONC 32.2 g/dl (31.0-37.0); MEAN PLATELET VOLUME 9.8 fl (7.0-11.0); RBC 4.13 10^6/uL (3.5-6.1); WHITE BLOOD COUNT 7.2 10^3/uL (4.5-11.0)
[2019-01-27 07:17] LABS: ALB/GLOB RATIO 0.6 (1.1-1.8); ALBUMIN 2.9 g/dL (3.0-4.8); ALT/SGPT 36 U/L (7-56); AST/SGOT 42 U/L (17-59); BLOOD UREA NITROGEN 23 mg/dL (7-21); CALCIUM 8.9 mg/dL (8.4-10.5); GFR NON-AFRICAN AMERICAN > 60; TROPONIN I 0.07 ng/mL
[2019-01-27 07:21] LABS: FREE T4 2.49 ng/dL (0.78-2.19)
[2019-01-27 07:35] LABS: T3 1.29 ng/mL (0.97-1.69)
--- NOTE | 2019-01-27 08:51 | CP.PCM.PN ---
<Elder Morton - Last Filed: 01/27/19 13:59> Subjective - Date & Time of Evaluation Date of Evaluation: 01/27/19 Time of Evaluation: 08:00 - Subjective Subjective: Elder Morton PGY1 Medicine Progress Note for Dr. Lubin Patient seen and examined at bedside this morning. Yesterday he had successful midline placement at the left UE. Patient was noted to be tachycardic last night (but asymptomatic) and EKG showed Afib with RVR (HR 140s). Patient was placed on cardizem drip. He is currently on it at a rate of 10. This morning, patient denies cp, sob, n/v/d, palpitations. A full 12 point ROS was conducted and unremarkable except as stated above. Objective - Vital Signs/Intake and Output Vital Signs (last 24 hours): Temp Pulse Resp BP Pulse Ox 97.4 F L 112 H 20 112/76 91 L 01/27/19 06:00 01/27/19 06:00 01/27/19 06:00 01/27/19 06:00 01/26/19 08:23 Intake and Output: 01/27/19 01/27/19 06:59 18:59 Intake Total 438 Output Total 650 Balance -212 - Medications Medications: Current Medications Betamethasone/Clotrimazole (Lotrisone) 0 gm TOP BID [facility] Last Admin: 01/25/19 17:44 Dose: Not Given Diltiazem HCl (Cardizem) 10 mg IVP Q6H PRN PRN Reason: Heart rate Last Admin: 01/26/19 18:38 Dose: 10 mg Divalproex Sodium (Mikael Dr(*Bid*)) 500 mg PO BID [facility]; Protocol Last Admin: 01/26/19 22:10 Dose: 500 mg Enoxaparin Sodium (Lovenox) 110 mg SC Q12H [facility]; Protocol Ceftriaxone Sodium (Rocephin 2 Gm Ivpb) 2 gm in 100 mls @ 100 mls/hr IVPB DAILY [facility]; Protocol Stop: 02/17/19 10:01 diltiaZEM IVPB 100mg in NS (Cardizem 100mg In Ns) 100 mls @ 5 mls/hr IV .Q20H [facility] Last Admin: 01/26/19 22:10 Dose: 5 mls/hr Lorazepam (Ativan) 2 mg IVP Q4H PRN; Protocol PRN Reason: Seizure activity Metoprolol Tartrate (Lopressor) 25 mg PO 0800,1800 [facility] Multi-Ingredient Ointment (Hydrophor Oint) 0 gm TOP Q6H [facility] - Labs Labs: 01/27/19 06:15 01/27/19 06:15 - Constitutional Appears: No Acute Distress - Head Exam Head Exam: ATRAUMATIC, NORMAL INSPECTION, NORMOCEPHALIC - Eye Exam Eye Exam: PERRL. absent: Normal appearance Additional comments: Chronic lazy eye - ENT Exam ENT Exam: Mucous Membranes Moist - Respiratory Exam Respiratory Exam: Clear to Auscultation Bilateral, NORMAL BREATHING PATTERN. absent: Rales, Rhonchi, Wheezes - Cardiovascular Exam Cardiovascular Exam: REGULAR RHYTHM, +S1, +S2 - GI/Abdominal Exam GI & Abdominal Exam: Normal Bowel Sounds, Soft. absent: Tenderness Additional comments: Umbilical hernia - Extremities Exam Extremities exam: Positive for: pedal pulses present (Diminished). Negative for: normal capillary refill Additional comments: Scaly bilateral LE dermatitis. Ulcerations in both lower legs, dressing in place bilaterally by wound care - improved since admission. Sensation intact to bilateral distal lower ext. - Neurological Exam Neurological exam: Alert, CN II-XII Intact, Oriented x3 - Psychiatric Exam Psychiatric exam: Normal Affect, Normal Mood Additional comments: Assessment and Plan - Assessment and Plan (Free Text) Assessment: Patient is a 58 year old male with past medical history of schizophrenia, seizure (non-compliant with medication), psoriasis, umbilical hernia, obesity presents to the ED accompanied by family for medical evaluation s/p witnessed seizure at home prior to arrival. Patient admitted for Seizures and Bilateral Lower Extremity Cellulitis and Ulcerations in the setting of chronic venous stasis. Patient hospital course complicated by bacteremia and Afib with RVR. Plan: Bilateral Lower Extremity Cellulitis/Ulcerations - complicated by bacteremia - c/w Rocephin IV 2g daily - As per ID recs - patient will need Rocephin IV 2g daily for a total of 21 days - Midline was placed at LUE on 01/26 for outpatient antibiotics - Repeat blood cx (01/24): negative x2 (prelim) after 3 days - Blood cx (01/21): coagulase negative staph and strep sangius (likely contamination) - Echo (4/1): no vegetations - Wound cx L-leg and R-leg: Providencia Rettgeri, Morganella Morganii, Gram Positive Cocci - Left and right foot XR: severe flattening of plantar arch. No osteo or gas forming infection. - LE arterial doppler: normal LISA. - Tibula/fibula XR bilateral: soft tissue swelling without acute articular/osseous abnormalities. - Wound care is on board - Podiatry on consult (Dr. Hernandez). Recs appreciated. - ID on consult (Dr. Orona). Recs appreciated. Afib with RVR - No prior hx of Afib or medications for Afib; occurred on 01/26 - patient transferred to tele. Afib may be 2/2 infection. - currently on cardizem drip - titrate down and discontinue once HR improves - c/w PO cardizem 30mg PO q6 - c/w metoprolol tartrate 25mg PO BID - Patient currently asymptomatic - CHADVASC score is 1 - consider anticoagulation with ASA vs Eliquis - HASBLED score is 2 - Will obtain LE doppler to r/o DVT as it may be possible trigger for Afib - TSH wnl - Screw Machine Set Up Operator on consult (Dr. Yu). Recs appreciated. Seizure 2/2 medication non-compliance vs Infection - resolved - c/w Depakote 500mg PO BID - c/w Ativan 2mg q4 prn for seizures - c/w neurochecks, seizure precautions, and aspiration precautions - continue to monitor for seizures; no seizures inpatient at this time - stable - EEG: abnormal, shows generalized epilepsy - Neurology on consult (Dr. Turner). Recs appreciated. Schizophrenia - Patient has capacity as per Psych. They signed off the case. - Psych is on consult (Dr. Hartley). Recs appreciated. DVT ppx: ASA GI ppx: not indicated Diet: Regular Dispo: Monitor patient on tele for Afib with RVR. Pending jonah ruiz. Case was discussed and reviewed with Attending Physician, Dr. Lubin. <Dena Lubin - Last Filed: 01/29/19 16:02> Objective - Vital Signs/Intake and Output Vital Signs (last 24 hours): Temp Pulse Resp BP Pulse Ox 97.6 F 60 18 110/70 93 L 01/29/19 12:00 01/29/19 14:00 01/29/19 12:00 01/29/19 12:00 01/29/19 06:00 Intake and Output: 01/29/19 01/29/19 06:59 18:59 Intake Total 240 Output Total 950 Balance -710 - Medications Medications: Current Medications Amiodarone HCl (Cordarone) 200 mg PO DAILY [facility] Last Admin: 01/29/19 10:13 Dose: 200 mg Apixaban (Eliquis) 2.5 mg PO BID [facility]; Protocol Last Admin: 01/29/19 10:14 Dose: 2.5 mg Atenolol (Tenormin) 12.5 mg PO BID [facility] Last Admin: 01/29/19 10:13 Dose: 12.5 mg Betamethasone/Clotrimazole (Lotrisone) 0 gm TOP BID [facility] Last Admin: 01/29/19 08:00 Dose: 1 applic Divalproex Sodium (Depakote Dr(*Bid*)) 500 mg PO BID [facility]; Protocol Last Admin: 01/29/19 10:14 Dose: 500 mg Ceftriaxone Sodium (Rocephin 2 Gm Ivpb) 2 gm in 100 mls @ 100 mls/hr IVPB DAILY [facility]; Protocol Stop: 02/17/19 10:01 Last Admin: 01/29/19 10:15 Dose: 100 mls/hr Lorazepam (Ativan) 2 mg IVP Q4H PRN; Protocol PRN Reason: Seizure activity Multi-Ingredient Ointment (Hydrophor Oint) 0 gm TOP Q6H [facility] Last Admin: 01/29/19 13:48 Dose: 1 applic Pantoprazole Sodium (Protonix Ec Tab) 40 mg PO DAILY [facility] Last Admin: 01/29/19 10:14 Dose: 40 mg Verapamil HCl (Calan Tab) 40 mg PO TID [facility] Last Admin: 01/29/19 13:47 Dose: 40 mg Verapamil HCl (Verapamil Inj) 2.5 mg IVP Q6H PRN PRN Reason: For Heart rate >130 - Labs Labs: 01/29/19 06:00 01/29/19 06:00 Attending/Attestation - Attestation I have personally seen and examined this patient.: Yes I have fully participated in the care of the patient.: Yes I have reviewed all pertinent clinical information, including history, physical exam and plan: Yes Notes (Text): 01/29/19 16:02 Medical record note made by the resident after discussion with my direction and input after the patient was personally seen and examined by me. I have reviewed the chart and agree that the record accurately reflects by personal performance of the history, physical exam, data review, and medical decision-making, in the course for the patient. I have also personally directed the plan of care.
[2019-01-27] MEDS ORDERED: diltiaZEM IVPB 100mg in NS 100 ML IV SCH (08:57)
--- NOTE | 2019-01-27 09:22 | CARD ---
APPROVED REPORT Date of service: 01/26/2019 EKG Measurement Heart [id number] <Conclusion> Atrial fibrillation with rapid ventricular response RSR' or QR pattern in V1 suggests right ventricular conduction delay Nonspecific ST and T wave abnormality, probably digitalis effect Abnormal ECG
--- NOTE | 2019-01-27 09:43 | CP.PCM.PN ---
<Narayan Onofre - Last Filed: 01/27/19 09:41> Subjective - Date & Time of Evaluation Date of Evaluation: 01/27/19 Time of Evaluation: 09:41 - Subjective Subjective: Podiatry progress note - Drs. Estrada/David 58 y/o male patient seen and evaluated this AM with Dr. Hernandez for b/l LE ulcerations and xerotic/scaling legs. Patient denies any acute overnight events. Patient states feeling much better. He states that he is still having burning pain at his left lower extremity. He denies any overnight n/v/f/c/sob and offers no other pedal complaints at this time. Objective - Vital Signs/Intake and Output Vital Signs (last 24 hours): Temp Pulse Resp BP Pulse Ox 97.4 F L 112 H 20 112/76 91 L 01/27/19 06:00 01/27/19 06:00 01/27/19 06:00 01/27/19 06:00 01/26/19 08:23 Intake and Output: 01/27/19 01/27/19 06:59 18:59 Intake Total 438 Output Total 650 Balance -212 - Medications Medications: Current Medications Betamethasone/Clotrimazole (Lotrisone) 0 gm TOP BID [facility] Last Admin: 01/25/19 17:44 Dose: Not Given Diltiazem HCl (Cardizem) 10 mg IVP Q6H PRN PRN Reason: Heart rate Last Admin: 01/26/19 18:38 Dose: 10 mg Divalproex Sodium (Depakote Dr(*Bid*)) 500 mg PO BID [facility]; Protocol Last Admin: 01/26/19 22:10 Dose: 500 mg Enoxaparin Sodium (Lovenox) 110 mg SC Q12H [facility]; Protocol Ceftriaxone Sodium (Rocephin 2 Gm Ivpb) 2 gm in 100 mls @ 100 mls/hr IVPB DAILY [facility]; Protocol Stop: 02/17/19 10:01 diltiaZEM IVPB 100mg in NS (Cardizem 100mg In Ns) 100 mls @ 10 mls/hr IV .Q10H [facility] Lorazepam (Ativan) 2 mg IVP Q4H PRN; Protocol PRN Reason: Seizure activity Metoprolol Tartrate (Lopressor) 25 mg PO 0800,1800 [facility] Multi-Ingredient Ointment (Hydrophor Oint) 0 gm TOP Q6H [facility] - Labs Labs: 01/27/19 06:15 01/27/19 06:15 - Constitutional Appears: Well, Non-toxic, No Acute Distress - Head Exam Head Exam: ATRAUMATIC, NORMOCEPHALIC - Extremities Exam Additional comments: B/l LE focused VASC: DP and PT pulses non palpable 2/2 moderate edema (L>R); cap refill <3 seconds to all digits; Temp gradient warm to warm from proximal to distal b/l; pedal hair growth absent. NEURO: Gross and protective sensation diminished b/l. DERM: LLE; Medial leg wound measuring 6 cm x 5 cm x 0.2cm with granular base, hyperkeratotic rim, no probe to bone, mild malodor, no streaking appreciated, po sitive sero-sanguineous drainage noted; RLE; Medial malleolar wound measuring 1 cm x 1 cm x 0.1cm covered with dry scab, no probe, no streaking, no malodor or drainage noted. Diffuse scaling and xerosis with skin cracking noted b/l. MSK: No pain on palpation to wounds b/l; midfoot collapse noted L>R - Neurological Exam Neurological Exam: Alert, Awake, Oriented x3 - Psychiatric Exam Psychiatric exam: Normal Mood Assessment and Plan - Assessment and Plan (Free Text) Assessment: 58 y/o male patient seen and evaluated for b/l LE ulcerations and xerotic/scaling legs. Plan: Patient seen and evaluated at the bedside Plan discussed with Dr. Estrada Charts, labs and vitals reviewed; Afebrile, absent leukocytosis. Applied Unna Boot and Coban to be applied b/l. Wound culture ordered - Providentia Rettgri, Morganella Morganii, Staph aureus. B/l tib/fib x-rays: Soft tissue swelling without acute articular or osseous abnormality, no subcutaneous emphysema noted. Continue management per primary care team Upon d/c to f/u with Dr. Hernandez/Sean in wound center as outpatient Podiatry will continue to follow up the patient while in house. <Emir Estrada - Last Filed: 01/27/19 10:55> Objective - Vital Signs/Intake and Output Vital Signs (last 24 hours): Temp Pulse Resp BP Pulse Ox 97.4 F L 111 H 20 125/78 91 L 01/27/19 06:00 01/27/19 10:30 01/27/19 06:00 01/27/19 10:30 01/26/19 08:23 Intake and Output: 01/27/19 01/27/19 06:59 18:59 Intake Total 438 Output Total 650 Balance -212 - Medications Medications: Current Medications Betamethasone/Clotrimazole (Lotrisone) 0 gm TOP BID [facility] Last Admin: 01/27/19 10:32 Dose: Not Given Diltiazem HCl (Cardizem) 10 mg IVP Q6H PRN PRN Reason: Heart rate Last Admin: 01/26/19 18:38 Dose: 10 mg Diltiazem HCl (Cardizem) 30 mg PO QID [facility] Last Admin: 01/27/19 10:30 Dose: 30 mg Divalproex Sodium (Depakote Dr(*Bid*)) 500 mg PO BID [facility]; Protocol Last Admin: 01/27/19 10:30 Dose: 500 mg Enoxaparin Sodium (Lovenox) 110 mg SC Q12H [facility]; Protocol Ceftriaxone Sodium (Rocephin 2 Gm Ivpb) 2 gm in 100 mls @ 100 mls/hr IVPB DAILY [facility]; Protocol Stop: 02/17/19 10:01 Last Admin: 01/27/19 10:30 Dose: 100 mls/hr diltiaZEM IVPB 100mg in NS (Cardizem 100mg In Ns) 100 mls @ 5 mls/hr IV .Q20H [facility] Lorazepam (Ativan) 2 mg IVP Q4H PRN; Protocol PRN Reason: Seizure activity Metoprolol Tartrate (Lopressor) 25 mg PO 0800,1800 [facility] Last Admin: 01/27/19 10:30 Dose: 25 mg Multi-Ingredient Ointment (Hydrophor Oint) 0 gm TOP Q6H [facility] - Labs Labs: 01/27/19 06:15 01/27/19 06:15 Attending/Attestation - Attestation I have personally seen and examined this patient.: Yes I have fully participated in the care of the patient.: Yes I have reviewed all pertinent clinical information, including history, physical exam and plan: Yes
[2019-01-27] MEDS: Divalproex 500 mg DR(BID formulation) PO SCH ×2 (10:30→17:28)
[2019-01-27] MEDS: cefTRIAXone 2 GM IN NS 2 GM/100 ML BAG IVPB SCH (10:30)
[2019-01-27] MEDS: Clotrimazole/Betamethasone Cream(15 gm) TOP SCH ×2 (10:32→17:33)
--- NOTE | 2019-01-27 13:49 | US ---
HISTORY: Leg pain and swelling. Evaluate for DVT PHYSICIAN(S): Joey Rubin MD. TECHNIQUE: Duplex sonography and color-flow Doppler with graded compression were used to evaluate the deep venous systems of both lower extremities. The calf veins are not well seen due to body habitus and edema. The left tibial veins were not visualized due to bandages. FINDINGS: The visualized deep venous systems of both lower extremities are sonographically normal and compressible. Normal wave forms and augmentation are seen. There is no sonographic evidence for deep venous thrombosis in the visualized segments of both lower extremities. IMPRESSION: No sonographic evidence for deep venous thrombosis in the visualized segments of both lower extremities. Limited study
[2019-01-27] MEDS: Petrolatum-Mineral Oil Oint (100gm) TOP SCH (14:22)
[2019-01-27] MEDS: diltiaZEM IVPB 100mg in NS 100 ML IV SCH (17:29)
[2019-01-27] MEDS ORDERED: Unna Boot TOP ONE (19:27)
--- NOTE | 2019-01-28 02:44 | CON ---
DATE: 01/27/2019 LOCATION: Patient in room 260, bed 2. REASON FOR CONSULTATION: Atrial fibrillation. HISTORY OF PRESENT ILLNESS: A 58-year-old male who is known to have schizophrenia, seizure disorder, psoriasis, umbilical hernia, obesity, chronic venous stasis, was admitted to the hospital with history from the family that the patient had a seizure at home and patient post seizure became postictal. Patient also found to have venous stasis and chronic venous stasis some opening on the leg. Patient denies any chest pain, shortness of breath, or palpitations. Patient denies any history of prior cardiac disease. Patient is a poor compliant patient. Patient is noncompliant with medications. PAST MEDICAL HISTORY: Positive for schizophrenia, seizure disorder, psoriasis, umbilical hernia, obesity, and chronic venous stasis. HOME MEDICATIONS: Patient was supposed to be on Depakote 500 mg p.o. b.i.d., Lotrisone cream for the leg, also Hydrophor ointment for the leg, but patient is poor compliant patient to follow the medication. PERSONAL HISTORY: Denies smoking. Denies drinking. Denies any illicit drug abuse. ALLERGIES: DENIES ANY ALLERGIES. FAMILY HISTORY: Not significant. PHYSICAL EXAMINATION: VITAL SIGNS: Blood pressure 115/77, respirations 18, pulse 106, and temperature 97.5. HEENT: Head is normocephalic. Eyes; pupils normal. Conjunctivae normal. Nose and throat normal. NECK: JVP low. Carotids equal. THORAX: AP diameter normal. LUNGS: Clear. CARDIOVASCULAR: S1 and S2. Irregular rhythm due to atrial fibrillation. No rubs. No click. ABDOMEN: Soft and nontender. No organomegaly. EXTREMITIES: Patient has marked venous stasis and redness, chronic venous stasis changes and also opening in the skin due to chronic venous stasis. DIAGNOSTIC DATA: Patient's EKG on 01/21/2019 showed sinus tachycardia rate 107 per minute, clockwise rotation. Echo was done on 01/25/2019. LV size is normal. LV systolic function normal. Left ventricle ejection fraction within normal range. Mild aortic regurgitation. Aortic root is mildly dilated with mild tricuspid regurgitation, RVSP 32 mmHg, suggestive of very minimal pulmonary hypertension. Patient monitor rhythm showed atrial fibrillation. The patient's lab data showed WBC 7.2, hemoglobin 12.8,hematocrit 39.7, and platelets 377. Sodium 143, potassium 4.0, BUN 23, and creatinine 1.0. AST and ALT normal. TSH 1.47, which is normal. T3 was 1.29, which is normal. Free T4 is 2.49, which is elevated and normal is between 0.78 to 2.19. DIAGNOSES: New onset of atrial fibrillation, chronic venous stasis, seizure disorder, psoriasis, umbilical hernia, obesity, and cellulitis of the leg. PLAN: The patient is already on diltiazem 30 mg p.o. q.i.d., and getting drip 5 mg per hour. We will add amiodarone 400 mg p.o. b.i.d. due to converted to sinus rhythm. The patient is on Depakote 500 mg b.i.d. and aspirin 81 mg daily. We will add Eliquis 2.5 mg b.i.d. for anticoagulation due to atrial fibrillation. Also, patient is on metoprolol 25 mg b.i.d. and ceftriaxone 2 g IV daily. We will add Protonix 40 mg p.o. daily to the therapy. We will follow closely with you. Dena Yu MD
[2019-01-28] MEDS: diltiaZEM IVPB 100mg in NS 100 ML IV SCH (05:57)
[2019-01-28 06:24] LABS: HEMOGLOBIN 12.9 g/dL (14.0-18.0); MEAN CELL VOLUME 95.7 fl (80.0-105.0); MEAN CORPUSCULAR HEMOGLOBIN 30.9 pg (25.0-35.0); MEAN CORPUSCULAR HGB CONC 32.3 g/dl (31.0-37.0); MEAN PLATELET VOLUME 9.7 fl (7.0-11.0); RBC 4.17 10^6/uL (3.5-6.1); RED CELL DISTRIBUTION WIDTH 15.8 % (11.5-14.5); WHITE BLOOD COUNT 6.2 10^3/uL (4.5-11.0)
[2019-01-28 06:49] LABS: BLOOD UREA NITROGEN 21 mg/dL (7-21); CALCIUM 8.8 mg/dL (8.4-10.5); GFR NON-AFRICAN AMERICAN > 60
[2019-01-28 07:03] LABS: ALB/GLOB RATIO 0.6 (1.1-1.8); ALBUMIN 3.1 g/dL (3.0-4.8); ALT/SGPT 31 U/L (7-56); AST/SGOT 41 U/L (17-59)
[2019-01-28] MEDS: Petrolatum-Mineral Oil Oint (100gm) TOP SCH ×6 (07:52→17:51)
[2019-01-28] MEDS: Pantoprazole 40 mg EC Tab PO SCH ×2 (08:03→10:23)
--- NOTE | 2019-01-28 08:25 | PN ---
DATE: 01/27/2019 SUBJECTIVE: The patient is seen earlier today in room 260, bed 2. No fevers, no chills, and no nausea. PHYSICAL EXAMINATION: VITAL SIGNS: Temperature is 97, blood pressure is 115/70, and respiratory rate of 18. HEENT: Unremarkable. NECK: Supple. LUNGS: Decreased breath sounds. HEART: Normal S1 and S2. ABDOMEN: Soft. LABORATORY DATA: Laboratory examinations noted. Chemistries are noted and HIV is negative. Microbiology is reviewed. Blood cultures showed no growth. In repeat cultures, the first one has Streptococcus sanguinis in blood. ASSESSMENT AND PLAN: A 58-year-old male, who was seen earlier today in room 260, is doing well who has a history of psoriasis, seizures, morbid obesity with BMI of 40, schizophrenia, Streptococcus sanguinis bacteremia, coag-negative Staphylococcus bacteremia with a negative echo, concerned about endocarditis and deep-seated infection with an elevated sedimentation rate and elevated C-reactive protein. Today, he is on day #4 of 28 days of ceftriaxone. We would recommend CBC, SMA-18, sedimentation rate, and C-reactive protein once weekly. His last C-reactive protein was 51.4. Hasmukh Lopez MD
--- NOTE | 2019-01-28 09:31 | CP.PCM.PN ---
Subjective - Date & Time of Evaluation Date of Evaluation: 01/28/19 Time of Evaluation: 09:29 - Subjective Subjective: Podiatry progress note for Drs. Estrada/David 58 y/o male patient seen and evaluated this AM with Dr. Hernandez for b/l LE ulcerations. Patient denies any acute overnight events. Patient was seen to be sitting in chair at bedside. Patient has Unna Boots to bilateral lower extremities. Patient denies any fever, nausea, vomiting, shortness of breath, or chest pain. Objective - Vital Signs/Intake and Output Vital Signs (last 24 hours): Temp Pulse Resp BP Pulse Ox 98.4 F 101 H 18 116/60 91 L 01/28/19 05:46 01/28/19 05:46 01/28/19 05:46 01/28/19 05:46 01/26/19 08:23 Intake and Output: 01/28/19 01/28/19 06:59 18:59 Intake Total 240 Output Total 1100 Balance -860 - Medications Medications: Current Medications Amiodarone HCl (Cordarone) 400 mg PO BID [facility] Last Admin: 01/27/19 17:29 Dose: 400 mg Apixaban (Eliquis) 2.5 mg PO BID [facility]; Protocol Last Admin: 01/27/19 17:29 Dose: 2.5 mg Betamethasone/Clotrimazole (Lotrisone) 0 gm TOP BID [facility] Last Admin: 01/27/19 17:33 Dose: Not Given Diltiazem HCl (Cardizem) 10 mg IVP Q6H PRN PRN Reason: Heart rate Last Admin: 01/26/19 18:38 Dose: 10 mg Diltiazem HCl (Cardizem) 30 mg PO QID [facility] Last Admin: 01/27/19 22:02 Dose: 30 mg Divalproex Sodium (Depakote Dr(*Bid*)) 500 mg PO BID [facility]; Protocol Last Admin: 01/27/19 17:28 Dose: 500 mg Ceftriaxone Sodium (Rocephin 2 Gm Ivpb) 2 gm in 100 mls @ 100 mls/hr IVPB DAILY [facility]; Protocol Stop: 02/17/19 10:01 Last Admin: 01/27/19 10:30 Dose: 100 mls/hr Lorazepam (Ativan) 2 mg IVP Q4H PRN; Protocol PRN Reason: Seizure activity Metoprolol Tartrate (Lopressor) 25 mg PO 0800,1800 [facility] Last Admin: 01/28/19 08:03 Dose: 25 mg Multi-Ingredient Ointment (Hydrophor Oint) 0 gm TOP Q6H [facility] Last Admin: 01/28/19 08:03 Dose: 1 applic Pantoprazole Sodium (Protonix Ec Tab) 40 mg PO DAILY [facility] Last Admin: 01/28/19 08:03 Dose: Not Given - Labs Labs: 01/28/19 05:40 01/28/19 05:40 - Constitutional Appears: Well, Non-toxic, No Acute Distress - Head Exam Head Exam: ATRAUMATIC, NORMOCEPHALIC - Extremities Exam Additional comments: Unna Boots were noted to bilateral lower extremities, clean/dry/intact - Neurological Exam Neurological Exam: Alert, Awake, Oriented x3 - Psychiatric Exam Psychiatric exam: Normal Affect, Normal Mood Assessment and Plan - Assessment and Plan (Free Text) Assessment: 58 y/o male patient seen and evaluated for b/l LE ulcerations and xerosis Plan: Patient was seen and evaluated at bedside today with Dr. Hernandez Plan was discussed with Dr. Hernandez Chart, labs and vitals were reviewed- patient is afebrile and absent for le ukocytosis B/L UnnaBoots/Coban to stay in place at this time -Left Unna Boot: to be changed prior to patient discharge -Right Unna Boot: to be kept intact for 1 week, to be changed on 02/03/17 if patient is still in house Visiting nursing services to be arranged for patient for dressing changes If discharged prior to Friday02/01/19, patient to follow up with Dr. Hernandez in her office Continue management per primary care team Podiatry will continue to follow patient while in house
[2019-01-28] MEDS ORDERED: diltiaZEM IVPB 100mg in NS 100 ML IV SCH (09:45)
[2019-01-28] MEDS: Clotrimazole/Betamethasone Cream(15 gm) TOP SCH ×3 (10:22→17:52)
[2019-01-28] MEDS: Divalproex 500 mg DR(BID formulation) PO SCH ×2 (10:22→17:50)
[2019-01-28] MEDS: cefTRIAXone 2 GM IN NS 2 GM/100 ML BAG IVPB SCH (10:32)
--- NOTE | 2019-01-28 12:18 | CP.PCM.PN ---
Subjective - Date & Time of Evaluation Date of Evaluation: 01/28/19 Time of Evaluation: 06:15 - Subjective Subjective: Awake, alert, no distress Reason for consultation and follow up: Cardiac evaluation of new onset atrial fibrillation, history of schizophrenia, seizure disorder,chronic venous stasis Seen and examined by me and Dr. Ann Objective - Vital Signs/Intake and Output Vital Signs (last 24 hours): Temp Pulse Resp BP Pulse Ox 97.4 F L 112 H 19 107/78 91 L 01/28/19 12:00 01/28/19 12:00 01/28/19 12:00 01/28/19 12:00 01/26/19 08:23 Intake and Output: 01/28/19 01/28/19 06:59 18:59 Intake Total 240 Output Total 1100 Balance -860 - Medications Medications: Current Medications Amiodarone HCl (Cordarone) 400 mg PO BID [facility] Last Admin: 01/28/19 10:22 Dose: 400 mg Apixaban (Eliquis) 2.5 mg PO BID [facility]; Protocol Last Admin: 01/28/19 10:22 Dose: 2.5 mg Betamethasone/Clotrimazole (Lotrisone) 0 gm TOP BID [facility] Last Admin: 01/28/19 10:23 Dose: 1 applic Diltiazem HCl (Cardizem) 10 mg IVP Q6H PRN PRN Reason: Heart rate Last Admin: 01/26/19 18:38 Dose: 10 mg Diltiazem HCl (Cardizem) 30 mg PO QID [facility] Last Admin: 01/28/19 10:17 Dose: 30 mg Divalproex Sodium (Depakote Dr(*Bid*)) 500 mg PO BID [facility]; Protocol Last Admin: 01/28/19 10:22 Dose: 500 mg Ceftriaxone Sodium (Rocephin 2 Gm Ivpb) 2 gm in 100 mls @ 100 mls/hr IVPB DAILY [facility]; Protocol Stop: 02/17/19 10:01 Last Admin: 01/28/19 10:32 Dose: 100 mls/hr diltiaZEM IVPB 100mg in NS (Cardizem 100mg In Ns) 100 mls @ 10 mls/hr IV .Q10H [facility] Last Admin: 01/28/19 10:20 Dose: 10 mls/hr Lorazepam (Ativan) 2 mg IVP Q4H PRN; Protocol PRN Reason: Seizure activity Metoprolol Tartrate (Lopressor) 37.5 mg PO 0800,1800 [facility] Multi-Ingredient Ointment (Hydrophor Oint) 0 gm TOP Q6H [facility] Last Admin: 01/28/19 12:00 Dose: 1 applic Pantoprazole Sodium (Protonix Ec Tab) 40 mg PO DAILY [facility] Last Admin: 01/28/19 10:23 Dose: 40 mg - Labs Labs: 01/28/19 05:40 01/28/19 05:40 - Constitutional Appears: Non-toxic, No Acute Distress - Head Exam Head Exam: NORMAL INSPECTION, NORMOCEPHALIC - Eye Exam Eye Exam: Normal appearance Pupil Exam: NORMAL ACCOMODATION - ENT Exam ENT Exam: Mucous Membranes Moist - Respiratory Exam Respiratory Exam: Decreased Breath Sounds, Clear to Ausculation Bilateral, NORMAL BREATHING PATTERN - Cardiovascular Exam Cardiovascular Exam: Irregular Rhythm, +S1, +S2 Additional comments: atrial fibrillation 80-90's - GI/Abdominal Exam GI & Abdominal Exam: Soft, Normal Bowel Sounds - Extremities Exam Additional comments: bilateral legs beverley wrapped - Neurological Exam Neurological Exam: Alert, Awake - Psychiatric Exam Psychiatric exam: Normal Affect, Normal Mood - Skin Skin Exam: Dry, Normal Color, Warm Assessment and Plan - Assessment and Plan (Free Text) Assessment: A 58 year old male who came in to the ER due to seizure witnessed by family member. History of schizophrenia, seizure (non-compliant with medication), psoriasis, umbilical hernia, obesity, chronic venous stasis. EKG showed rapid atrial fibrillation 160's. Compared to previous EKG showed sinus tachycardia. Echo done and showed normal LV function, mild aortic and tricuspid regurgitation. US of lower extremities showed negative for DVT. Still on Rapid atrial fibrillation, On Amiodarone, Cardizem and Eliquis. Will increase Cardizem drip to 10 mg /hr and give one dose of digoxin 0.25 mg IVP to control heart rate. Plan: Still with uncontrolled atrial fibrillation 110-120's On Amiodarone 400 mg BID, Eliquis 2.5 mg BID Continue Cardizem drip and increased to 10 mg/hr Will Hold oral Cardizem Will give Digoxin 0.25 mg IVP On Lopressor 37.5 mg BID Continue current management Continue current treatment Will follow up Plan and treatment discussed with Dr. Ann
--- NOTE | 2019-01-28 12:27 | CP.PCM.PN ---
<Eldre Morton - Last Filed: 01/28/19 12:39> Subjective - Date & Time of Evaluation Date of Evaluation: 01/28/19 Time of Evaluation: 08:00 - Subjective Subjective: Elder Morton, PGY1 Medicine Progress Note for Dr. Lubin Patient seen and examined at bedside. During time of interview, patient's HR was 130-140s still in Afib, on cardizem drip rate of 5. Cardio was present during time of interview and dosage rate was changed to 10. However, patient is grossly asymptomatic. He denies headache, cp, sob, n/v/d, fevers, chills. A full 12 point ROS was conducted and unremarkable except as stated above. Objective - Vital Signs/Intake and Output Vital Signs (last 24 hours): Temp Pulse Resp BP Pulse Ox 97.4 F L 112 H 19 107/78 91 L 01/28/19 12:00 01/28/19 12:00 01/28/19 12:00 01/28/19 12:00 01/26/19 08:23 Intake and Output: 01/28/19 01/28/19 06:59 18:59 Intake Total 240 Output Total 1100 Balance -860 - Medications Medications: Current Medications Amiodarone HCl (Cordarone) 400 mg PO BID [facility] Last Admin: 01/28/19 10:22 Dose: 400 mg Apixaban (Eliquis) 2.5 mg PO BID [facility]; Protocol Last Admin: 01/28/19 10:22 Dose: 2.5 mg Betamethasone/Clotrimazole (Lotrisone) 0 gm TOP BID [facility] Last Admin: 01/28/19 10:23 Dose: 1 applic Diltiazem HCl (Cardizem) 10 mg IVP Q6H PRN PRN Reason: Heart rate Last Admin: 01/26/19 18:38 Dose: 10 mg Diltiazem HCl (Cardizem) 30 mg PO QID [facility] Last Admin: 01/28/19 10:17 Dose: 30 mg Divalproex Sodium (Depakote Dr(*Bid*)) 500 mg PO BID [facility]; Protocol Last Admin: 01/28/19 10:22 Dose: 500 mg Ceftriaxone Sodium (Rocephin 2 Gm Ivpb) 2 gm in 100 mls @ 100 mls/hr IVPB DAILY [facility]; Protocol Stop: 02/17/19 10:01 Last Admin: 01/28/19 10:32 Dose: 100 mls/hr diltiaZEM IVPB 100mg in NS (Cardizem 100mg In Ns) 100 mls @ 10 mls/hr IV .Q10H [facility] Last Admin: 01/28/19 10:20 Dose: 10 mls/hr Lorazepam (Ativan) 2 mg IVP Q4H PRN; Protocol PRN Reason: Seizure activity Metoprolol Tartrate (Lopressor) 37.5 mg PO 0800,1800 [facility] Multi-Ingredient Ointment (Hydrophor Oint) 0 gm TOP Q6H [facility] Last Admin: 01/28/19 12:00 Dose: 1 applic Pantoprazole Sodium (Protonix Ec Tab) 40 mg PO DAILY [facility] Last Admin: 01/28/19 10:23 Dose: 40 mg - Labs Labs: 01/28/19 05:40 01/28/19 05:40 - Constitutional Appears: No Acute Distress - Head Exam Head Exam: ATRAUMATIC, NORMAL INSPECTION, NORMOCEPHALIC - Eye Exam Eye Exam: PERRL. absent: Normal appearance Additional comments: Chronic lazy eye - ENT Exam ENT Exam: Mucous Membranes Moist - Respiratory Exam Respiratory Exam: Clear to Auscultation Bilateral, NORMAL BREATHING PATTERN. absent: Rales, Rhonchi, Wheezes - Cardiovascular Exam Cardiovascular Exam: REGULAR RHYTHM, +S1, +S2 - GI/Abdominal Exam GI & Abdominal Exam: Normal Bowel Sounds, Soft. absent: Tenderness Additional comments: Umbilical hernia - Extremities Exam Extremities exam: Positive for: pedal pulses present (Diminished). Negative for: normal capillary refill Additional comments: Scaly bilateral LE dermatitis. Ulcerations in both lower legs, dressing in place bilaterally by wound care - improved since admission. Sensation intact to bilateral distal lower ext. - Neurological Exam Neurological exam: Alert, CN II-XII Intact, Oriented x3 - Psychiatric Exam Psychiatric exam: Normal Affect, Normal Mood Additional comments: Assessment and Plan - Assessment and Plan (Free Text) Assessment: Patient is a 58 year old male with past medical history of schizophrenia, seizure (non-compliant with medication), psoriasis, umbilical hernia, obesity presents to the ED accompanied by family for medical evaluation s/p witnessed seizure at home prior to arrival. Patient admitted for Seizures and Bilateral Lower Extremity Cellulitis and Ulcerations in the setting of chronic venous stasis. Patient hospital course complicated by bacteremia and Afib with RVR. Plan: Bilateral Lower Extremity Cellulitis/Ulcerations - complicated by bacteremia - c/w Rocephin IV 2g daily - As per ID recs - patient will need Rocephin IV 2g daily for a total of 21 days - Midline was placed [place] [facility] [place] for outpatient antibiotics - Repeat blood cx (01/24): negative x2 (prelim) after 4 days - Blood cx (01/21): coagulase negative staph and strep sangius (likely contamination) - Echo (01/25): no vegetations - Wound cx L-leg and R-leg: Providencia Rettgeri, Morganella Morganii, Gram Positive Cocci - Left and right foot XR: severe flattening of plantar arch. No osteo or gas forming infection. - LE arterial doppler: normal LISA. - Tibula/fibula XR bilateral: soft tissue swelling without acute articular/os seous abnormalities. - Wound care is on board - Podiatry on consult (Dr. Hernandez). Recs appreciated. - ID on consult (Dr. Orona). Recs appreciated. Afib with RVR - asymptomatic - Likely 2/2 Infection vs HTN etiology - Monitor on tele; HR is still elevated - c/w cardizem drip as HR is still high - titrate down and discontinue drip once improved - increased metoprolol tartrate to 37.5mg PO BID - c/w PO cardizem 30mg PO q6 - c/w amiodarone 400mg PO BID - c/w Eliquis 2.5 mg PO BID as per cardio recs for anticoagulation - CHADVASC score is 1 and HASBLED score is 2 - LE Venous doppler: negative for DVT - TSH wnl - trops trended; not suggestive of ME - [facility] on consult (Dr. Yu). Recs appreciated. Seizure 2/2 medication non-compliance vs Infection - resolved - c/w Depakote 500mg PO BID - c/w Ativan 2mg q4 prn for seizures - c/w neurochecks, seizure precautions, and aspiration precautions - continue to monitor for seizures; no seizures inpatient at this time - stable - EEG: abnormal, shows generalized epilepsy - Neurology on consult (Dr. Turner). Recs appreciated. Schizophrenia - Patient has capacity as per Psych. They signed off the case. - Psych is on consult (Dr. Hartley). Recs appreciated. DVT ppx: eliquis GI ppx: not indicated Diet: Regular PT recommends [facility], accepted to facility. He is also more agreeable now to going to [facility] [place]. Dispo: Continue to monitor patient overnight on tele as rhythm is still Afib with RVR. Further recs from cardio. Patient will be going to [facility] [place], accepted to facility. If Afib/HR improves, likely discharge tomorrow. Case was discussed and reviewed with Attending Physician, Dr. Lubin. <Dena Lubin - Last Filed: 01/29/19 16:01> Objective - Vital Signs/Intake and Output Vital Signs (last 24 hours): Temp Pulse Resp BP Pulse Ox 97.6 F 60 18 110/70 93 L 01/29/19 12:00 01/29/19 14:00 01/29/19 12:00 01/29/19 12:00 01/29/19 06:00 Intake and Output: 01/29/19 01/29/19 06:59 18:59 Intake Total 240 Output Total 950 Balance -710 - Medications Medications: Current Medications Amiodarone HCl (Cordarone) 200 mg PO DAILY [facility] Last Admin: 01/29/19 10:13 Dose: 200 mg Apixaban (Eliquis) 2.5 mg PO BID [facility]; Protocol Last Admin: 01/29/19 10:14 Dose: 2.5 mg Atenolol (Tenormin) 12.5 mg PO BID [facility] Last Admin: 01/29/19 10:13 Dose: 12.5 mg Betamethasone/Clotrimazole (Lotrisone) 0 gm TOP BID [facility] Last Admin: 01/29/19 08:00 Dose: 1 applic Divalproex Sodium (Depakotaras Dr(*Bid*)) 500 mg PO BID [facility]; Protocol Last Admin: 01/29/19 10:14 Dose: 500 mg Ceftriaxone Sodium (Rocephin 2 Gm Ivpb) 2 gm in 100 mls @ 100 mls/hr IVPB DAILY [facility]; Protocol Stop: 02/17/19 10:01 Last Admin: 01/29/19 10:15 Dose: 100 mls/hr Lorazepam (Ativan) 2 mg IVP Q4H PRN; Protocol PRN Reason: Seizure activity Multi-Ingredient Ointment (Hydrophor Oint) 0 gm TOP Q6H [facility] Last Admin: 01/29/19 13:48 Dose: 1 applic Pantoprazole Sodium (Protonix Ec Tab) 40 mg PO DAILY [facility] Last Admin: 01/29/19 10:14 Dose: 40 mg Verapamil HCl (Calan Tab) 40 mg PO TID [facility] Last Admin: 01/29/19 13:47 Dose: 40 mg Verapamil HCl (Verapamil Inj) 2.5 mg IVP Q6H PRN PRN Reason: For Heart rate >130 - Labs Labs: 01/29/19 06:00 01/29/19 06:00 Attending/Attestation - Attestation I have personally seen and examined this patient.: Yes I have fully participated in the care of the patient.: Yes I have reviewed all pertinent clinical information, including history, physical exam and plan: Yes Notes (Text): 01/29/19 15:51 Medical record note made by the resident after discussion with my direction and input after the patient was personally seen and examined by me. I have reviewed the chart and agree that the record accurately reflects by personal performance of the history, physical exam, data review, and medical decision-making, in the course for the patient. I have also personally directed the plan of care. 58 year old male with past medical history of schizophrenia, seizure, psoriasis and medication noncompliance who presented after witnessed seizure at home. Neurology is following for seizure disorder and started on depakote. He was also found to have extensive bilateral lower extremity ulcerations and cellulitis overlying chronic chronic venous statis. Bilateral tibula/fibula xrays showed soft tissue swelling. LE doppler negative for DVT. Arterial doppler was also normal. Wound culture is growing Providencia Rettgeri, Morganella Morganii, and gram positive cocc. BCx grew coagulase negative staph likely contaminated.Repeat blood cul;tures are negative.Echo is negative for any vegetation.ID has recommended total 4 weeks of IV Ceftriaxone. Patient also went to AF with RVR.Heart rate is still running high.Cardiology is following, currently on Metoprolol/Cardizem and amiodrone. Patient is also on anticoagulation with Apixiban. Management plan was discussed in detail with patient. Education was provided
[2019-01-28] MEDS ORDERED: Digoxin 500 mcg/2ml (0.5 mg/2ml) Inj IVP STA (12:45)
--- NOTE | 2019-01-28 15:02 | PN ---
DATE: 01/28/2019 SUBJECTIVE: The patient is seen earlier today in room 260, bed 2. No fevers and no chills. No nausea. PHYSICAL EXAMINATION VITAL SIGNS: On exam, temperature is 97, blood pressure is 107/70 and respiratory rate of 18. HEENT: Unremarkable. NECK: Supple. LUNGS: Have decreased breath sounds. HEART: Normal S1 and S2. ABDOMEN: Soft and nontender. LABORATORY EXAMINATION: Reveals the patient's WBC is 6.2. Sed rate is 112. Chemistries are noted and the C-reactive protein is 51.4. Toxicology is reviewed. Serology is noted. Microbiology reveals the repeat blood cultures are negative. The initial one had strep sanguinis in the blood. ASSESSMENT AND PLAN: This is a 58-year-old male seen earlier today in room 260, history of psoriasis, seizures, morbid obesity, body mass index of 40, schizophrenia who was admitted with Streptococus sanguinis bacteremia, coag-negative staph bacteremia, negative echo and today is day #5 of 28 days, currently on ceftriaxone. Recommended a sed rate, C-reactive protein once weekly. Hasmuhk Lopez MD
[2019-01-28] MEDS ORDERED: Digoxin 500 mcg/2ml (0.5 mg/2ml) Inj IVP ONE (17:00)
[2019-01-28 17:57] VITALS: PULSE 91
[2019-01-29] MEDS: Petrolatum-Mineral Oil Oint (100gm) TOP SCH ×3 (00:17→13:48)
[2019-01-29 06:33] LABS: HEMOGLOBIN 13.1 g/dL (14.0-18.0); MEAN CELL VOLUME 96.7 fl (80.0-105.0); MEAN CORPUSCULAR HEMOGLOBIN 30.8 pg (25.0-35.0); MEAN CORPUSCULAR HGB CONC 31.8 g/dl (31.0-37.0); MEAN PLATELET VOLUME 9.8 fl (7.0-11.0); RBC 4.26 10^6/uL (3.5-6.1); RED CELL DISTRIBUTION WIDTH 15.9 % (11.5-14.5); WHITE BLOOD COUNT 6.5 10^3/uL (4.5-11.0)
[2019-01-29 07:00] VITALS: RESP 18; O2SAT 93
[2019-01-29 07:12] LABS: ALB/GLOB RATIO 0.6 (1.1-1.8); ALBUMIN 3.1 g/dL (3.0-4.8); ALT/SGPT 37 U/L (7-56); AST/SGOT 59 U/L (17-59); BLOOD UREA NITROGEN 26 mg/dL (7-21); GFR NON-AFRICAN AMERICAN > 60
[2019-01-29] MEDS: Clotrimazole/Betamethasone Cream(15 gm) TOP SCH ×2 (08:00→17:00)
--- NOTE | 2019-01-29 09:27 | CP.PCM.PN ---
<Ksenia Durant - Last Filed: 01/29/19 09:23> Subjective - Date & Time of Evaluation Date of Evaluation: 01/29/19 Time of Evaluation: 09:23 - Subjective Subjective: Podiatry progress note for Drs. Estrada/David 58 y/o male patient seen and evaluated this AM with Dr. Estrada for b/l LE ulcerations. Patient denies any acute overnight events. Patient was seen to be sitting in chair at bedside. Patient has Unna Boots to bilateral lower extremities. Patient denies any fever, nausea, vomiting, shortness of breath, or chest pain. Objective - Vital Signs/Intake and Output Vital Signs (last 24 hours): Temp Pulse Resp BP Pulse Ox 98.1 F 60 18 97/66 L 93 L 01/29/19 06:00 01/29/19 06:00 01/29/19 06:00 01/29/19 06:00 01/29/19 06:00 Intake and Output: 01/29/19 01/29/19 06:59 18:59 Intake Total 240 Output Total 950 Balance -710 - Medications Medications: Current Medications Amiodarone HCl (Cordarone) 200 mg PO DAILY [facility] Apixaban (Eliquis) 2.5 mg PO BID [facility]; Protocol Last Admin: 01/28/19 17:50 Dose: 2.5 mg Atenolol (Tenormin) 12.5 mg PO BID [facility] Betamethasone/Clotrimazole (Lotrisone) 0 gm TOP BID [facility] Last Admin: 01/28/19 17:52 Dose: 1 applic Divalproex Sodium (Depdede Dr(*Bid*)) 500 mg PO BID [facility]; Protocol Last Admin: 01/28/19 17:50 Dose: 500 mg Ceftriaxone Sodium (Rocephin 2 Gm Ivpb) 2 gm in 100 mls @ 100 mls/hr IVPB DAILY [facility]; Protocol Stop: 02/17/19 10:01 Last Admin: 01/28/19 10:32 Dose: 100 mls/hr Lorazepam (Ativan) 2 mg IVP Q4H PRN; Protocol PRN Reason: Seizure activity Multi-Ingredient Ointment (Hydrophor Oint) 0 gm TOP Q6H [facility] Last Admin: 01/29/19 06:17 Dose: Not Given Pantoprazole Sodium (Protonix Ec Tab) 40 mg PO DAILY [facility] Last Admin: 01/28/19 10:23 Dose: 40 mg Verapamil HCl (Calan Tab) 40 mg PO TID [facility] Last Admin: 01/28/19 17:50 Dose: Not Given Verapamil HCl (Verapamil Inj) 2.5 mg IVP Q6H PRN PRN Reason: For Heart rate >130 - Labs Labs: 01/29/19 06:00 01/29/19 06:00 - Constitutional Appears: Well, Non-toxic, No Acute Distress - Head Exam Head Exam: ATRAUMATIC, NORMOCEPHALIC - Extremities Exam Additional comments: Right Sided: Unna Boots Left: Medial leg wound measuring 6 cm x 5 cm x 0.2cm with granular base, hyperkeratotic rim, no probe to bone, mild malodor, no streaking appreciated, positive sero-sanguineous drainage noted - Neurological Exam Neurological Exam: Alert, Awake, Oriented x3 - Psychiatric Exam Psychiatric exam: Normal Affect, Normal Mood Assessment and Plan - Assessment and Plan (Free Text) Assessment: 58 year old male patient seen and evaluated for bilateral Lower Extremity ulceration and xerosis to skin Plan: Patient seen and evaluated at bedside with Dr. Estrada Plan discussed with attending Chart, Labs and vitals reviewed; Afebrile, absent leukocytosis. Wound culture ordered - Providentia Rettgri, Morganella Morganii, Staph aureus. B/l tib/fib x-rays: Soft tissue swelling without acute articular or osseous abnormality, no subcutaneous emphysema noted Left Side Unna Boot changed today Right side Unna Boot intact, clean and dry Visiting nursing services to be arranged for patient for dressing changes If discharged prior to Friday02/01/19, patient to follow up with Dr. Hernandez in her office Podiatry will continue to follow up the patient while in house <Emir Estrada - Last Filed: 01/30/19 07:31> Objective - Vital Signs/Intake and Output Vital Signs (last 24 hours): Temp Pulse Resp BP Pulse Ox 97.2 F L 59 L 18 117/72 93 L 01/29/19 18:00 01/29/19 18:00 01/29/19 18:00 01/29/19 18:00 01/29/19 06:00 Intake and Output: 01/30/19 01/30/19 06:59 18:59 Intake Total 1260 Balance 1260 - Labs Labs: 01/29/19 06:00 01/29/19 06:00 Attending/Attestation - Attestation I have personally seen and examined this patient.: Yes I have fully participated in the care of the patient.: Yes I have reviewed all pertinent clinical information, including history, physical exam and plan: Yes
[2019-01-29] MEDS: Pantoprazole 40 mg EC Tab PO SCH (10:14)
[2019-01-29] MEDS: Divalproex 500 mg DR(BID formulation) PO SCH ×2 (10:14→16:59)
[2019-01-29] MEDS: cefTRIAXone 2 GM IN NS 2 GM/100 ML BAG IVPB SCH (10:15)
--- NOTE | 2019-01-29 12:33 | PN ---
DATE: 01/29/2019 REASON FOR CONSULTATION AND FOLLOWUP: Atrial fibrillation, history of seizure disorder, AFib with rapid ventricular rate converted to normal sinus, and sinus bradycardia. PHYSICAL EXAMINATION: As follows; VITAL SIGNS: Temperature is afebrile, heart rate 60, blood pressure 97/66. HEENT: PERRLA. Extraocular muscles are intact. NECK: Supple. No carotid bruits. No thyromegaly. CHEST: Clear to auscultation. HEART: S1 and S2. Regular. ABDOMEN: Soft. EXTREMITIES: Clubbing and cyanosis negative. LABORATORY DATA: Blood workup as follows: WBC 6.5, hemoglobin 13.8, hematocrit 41.2, platelet count 387. Chemistry shows sodium 140, potassium 4.5, chloride 109, carbon dioxide of 29, anion gap of 9, BUN 26, creatinine 1.1. IMPRESSION: A 58-year-old male noncompliant with medication, admitted with new onset of atrial fibrillation after having a witnessed seizure by family member, history of schizophrenia, history of seizure medication noncompliance, history of psoriasis, history of umbilical hernia, obesity, chronic venous stasis, and chronic leg edema. On admission, heart rate was 150, atrial fibrillation. Recent echo shows normal left ventricular function, mild aortic and tricuspid regurgitation. Ultrasound of the lower extremities was negative for deep vein thrombosis. The patient was started on intravenous Cardizem, amiodarone, but heart rate was still fast. Two doses of digoxin was given. The patient converted to normal sinus and Cardizem was changed to p.o. verapamil, also atenolol was added. The patient became bradycardic, but now converted to normal sinus. RECOMMENDATIONS: We will cut down the atenolol 12.5 mg p.o. b.i.d., continue 200 mg of amiodarone from today and continue verapamil as blood pressure is tolerated, and verapamil was started with a heart rate of 55 and systolic blood pressure 95, and we will decrease the Tenormin to 12.5 mg p.o. b.i.d. We will follow with you. We will get EKG. Thank you Dr. Lubin for providing us opportunity in taking care of the patient, Vimal Gordillo. We will follow with you. Dena Ann MD [facility] # [id number]
--- NOTE | 2019-01-29 15:28 | CP.PCM.DIS ---
<PalElder - Last Filed: 01/29/19 15:49> Provider - Provider Date of Admission: 01/21/19 16:48 Attending physician: Dena Lubin MD Primary care physician: ANUSHKA FAMILY PROVIDER Consults: 01/21/19 13:45 Psychiatry Consult Stat Comment: Consulting Provider: Odilia Duque Consulting Physician: Odilia Duque Reason for Consult: mental capacity, hx schizophrenia 01/21/19 16:51 Consult [Physician Consult] Routine Comment: Consulting Provider: Gianluca Turner Consulting Physician: Gianluca Turner Reason for Consult: seizures 01/21/19 17:20 Physician Consult Routine Comment: Consulting Provider: Lul Orona Consulting Physician: Lul Orona Reason for Consult: cellulitis 01/21/19 17:21 Podiatry Consult Routine Comment: Consulting Provider: Shantal Hernandez Consulting Physician: Shantal Hernandez Reason for Consult: cellulitis 01/21/19 19:25 Case Management Referral Routine Comment: Physician Instructions: Reason For Exam: PT needs assistance at home. 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 01/26/19 16:53 Discharge Planning [Case Management Referral] Routine Comment: Physician Instructions: Reason For Exam: Need to set up infusion company Reason for Referral: [facility] Eval 01/26/19 18:25 Cardiology Consult Routine Comment: Consulting Provider: Dena Yu Consulting Physician: Dena Yu Reason for Consult: new-onset AFib 01/27/19 06:04 Nursing Referral for Wound Care Routine Comment: Physician Instructions: Reason For Exam: protocol Time Spent in preparation of Discharge (in minutes): 35 Hospital Course - Lab Results Lab Results: Micro Results 01/24/19 11:20 Blood Blood Culture - Final NO GROWTH AFTER 5 DAYS 01/24/19 11:20 Blood Gram Stain - Final TEST NOT PERFORMED 01/24/19 11:00 Blood Blood Culture - Final NO GROWTH AFTER 5 DAYS 01/21/19 21:00 Leg - Right Gram Stain - Final 01/21/19 21:00 Leg - Right Wound Culture - Final Providencia Rettgeri Morganella Morganii Staphylococcus Aureus 03/29/19 13:50 Leg - Left Gram Stain - Final 01/22/19 13:50 Leg - Left Wound Culture - Final Providencia Rettgeri Morganella Morganii Staphylococcus Aureus 01/21/19 15:30 Blood-Venous S.aureus & Coag-Neg Staph PNA FISH - Final 01/21/19 15:30 Blood-Venous Blood Culture - Final Coagulase Neg Staphylococcus 01/21/19 15:30 Blood-Venous Gram Stain - Final 01/21/19 15:00 Blood-Venous Blood Culture - Final Streptococcus Sangius I 01/21/19 15:00 Blood-Venous Gram Stain - Final Most Recent Lab Values WBC 6.5 10^3/uL (4.5-11.0) 01/29/19 06:00 RBC 4.26 10^6/uL (3.5-6.1) 01/29/19 06:00 Hgb 13.1 g/dL (14.0-18.0) L 01/29/19 06:00 Hct 41.2 % (42.0-52.0) L 01/29/19 06:00 MCV 96.7 fl (80.0-105.0) 01/29/19 06:00 MCH 30.8 pg (25.0-35.0) 01/29/19 06:00 MCHC 31.8 g/dl (31.0-37.0) 01/29/19 06:00 RDW 15.9 % (11.5-14.5) H 01/29/19 06:00 Plt Count 387 10^3/uL (120.0-450.0) 01/29/19 06:00 MPV 9.8 fl (7.0-11.0) 01/29/19 06:00 Neut % (Auto) 60.4 % (50.0-68.0) 01/25/19 05:30 Lymph % (Auto) 17.5 % (22.0-35.0) L 01/25/19 05:30 [place] % (Auto) 19.0 % (1.0-6.0) H 01/25/19 05:30 Eos % (Auto) 2.9 % (1.5-5.0) 01/25/19 05:30 Baso % (Auto) 0.2 % (0.0-3.0) 01/25/19 05:30 Lymph # (Auto) 1.6 (1.2-3.4) 01/25/19 05:30 [place] # (Auto) 1.8 (0.1-0.6) H 01/25/19 05:30 Eos # (Auto) 0.3 (0.0-0.7) 01/25/19 05:30 Baso # (Auto) 0.02 K/mm3 (0.0-2.0) 01/25/19 05:30 Absolute Neuts (auto) 5.56 (1.4-6.5) 01/25/19 05:30 ESR 112 mm/hr (0.00-15.0) H 01/24/19 06:30 Sodium 142 mmol/L (132-148) 01/29/19 06:00 Potassium 4.5 mmol/L (3.6-5.0) 01/29/19 06:00 Chloride 109 mmol/L (98-107) H 01/29/19 06:00 Carbon Dioxide 29 mmol/L (21-33) 01/29/19 06:00 Anion Gap 9 (10-20) L 01/29/19 06:00 BUN 26 mg/dL (7-21) H 01/29/19 06:00 Creatinine 1.1 mg/dl (0.8-1.5) 01/29/19 06:00 Est GFR ( Amer) > 60 01/29/19 06:00 Est GFR (Non-Af Amer) > 60 01/29/19 06:00 Random Glucose 74 mg/dL (70-110) 01/29/19 06:00 Hemoglobin A1c 5.5 % (4.2-6.5) 01/23/19 07:00 Calcium 9.0 mg/dL (8.4-10.5) 01/29/19 06:00 Phosphorus 4.4 mg/dL (2.5-4.5) 01/26/19 18:40 Magnesium 2.1 mg/dL (1.7-2.2) 01/26/19 18:40 Total Bilirubin 0.4 mg/dL (0.2-1.3) 01/29/19 06:00 AST 59 U/L (17-59) D 01/29/19 06:00 ALT 37 U/L (7-56) 01/29/19 06:00 Alkaline Phosphatase 134 U/L (38-126) H 01/29/19 06:00 Total Creatine Kinase 41 U/L (35-230) 01/21/19 15:00 Troponin I 0.07 ng/mL 01/27/19 06:15 C-Reactive Protein 51.40 mg/L (0.0-9.9) H 01/21/19 15:00 Total Protein 8.3 g/dL (5.8-8.3) 01/29/19 06:00 Albumin 3.1 g/dL (3.0-4.8) 01/29/19 06:00 Globulin 5.2 gm/dL 01/29/19 06:00 Albumin/Globulin Ratio 0.6 (1.1-1.8) L 01/29/19 06:00 Free T4 2.49 ng/dL (0.78-2.19) H 01/27/19 06:15 Total T3 1.29 ng/mL (0.97-1.69) 01/27/19 06:15 TSH 3rd Generation 1.47 mIU/mL (0.46-4.68) 01/26/19 18:40 Vancomycin Trough 12.9 ug/mL (5.0-10.0) H 01/25/19 09:00 Urine Opiates Screen Negative (NEGATIVE) 01/21/19 17:21 Urine Methadone Screen Negative (NEGATIVE) 01/21/19 17:21 Ur Barbiturates Screen Negative (NEGATIVE) 01/21/19 17:21 Ur Phencyclidine Scrn Negative (NEGATIVE) 01/21/19 17:21 Ur Amphetamines Screen Negative (NEGATIVE) 01/21/19 17:21 U Benzodiazepines Scrn Negative (NEGATIVE) 01/21/19 17:21 U Oth Cocaine Metabols Negative (NEGATIVE) 01/21/19 17:21 U Cannabinoids Screen Negative (NEGATIVE) 01/21/19 17:21 Alcohol, Quantitative < 10 mg/dL (0-10) 01/21/19 15:00 HIV 1&2 Ag/Ab, 4th Gen Nonreactive (Nonreactive) 01/23/19 07:00 - Hospital Course Hospital Course: Elder Morton, PGY1 Discharge Summary for Dr. Lubin Patient is a 58 year old male with past medical history of schizophrenia, seizure (non-compliant with medication), psoriasis, umbilical hernia, obesity presented to the ED accompanied by family for medical evaluation s/p witnessed seizure at home prior to arrival. As per family, patient was convulsing for 3-5 minutes while he was sitting in chair, he then fell. There was no injury to head or loss of consciousness as per family. Patient initially presented post-ictal in the ED. Mental status improved since he came to the ED. Patient admitted for witnessed seizure. However, he was also found to have severe ulcerations in the bilateral lower extremities. Workup was done to r/o osteomyelitis. Bilateral lower extremity imaging showed no evidence of osteo. LISA was also normal on arterial ultrasound. Neurology, Podiatry, Psych, and ID were placed on consult. Patient was placed on broad spectrum antibiotics. Blood and wound cx were also obtained. As per neuro, patient was on depakote and placed on appropriate precautions. Patient was refusing CT scan. He also initially wanted to sign out against medical advice but did not have the capacity. After psych evaluated patient, they said patient did have capacity. However, patient agreed to stay in the hospital for appropriate treatment. During hospital course, his lower extremity ulcers improved. BCx however gew coagulase negative staph and strep sangius. Echo showed no vegetations. Repeat cultures were negative. Endocarditis is low suspicion. Wound cx were +providencia, morganella, and gram positive cocci. ID recommended that the patient continue with rocephin 2g IVPB as outpatient given the culture findings. During hospital course, patient's stay was complicated by new onset Afib with RVR - started on cardizem drip. He was never symptomatic. Cardio was placed on consult and managed his Afib appropriately. Patient eventually converted back to NSR. PT also recommended patient go to [facility], for which he was initially denying but eventually agreed. Upon reviewing all labs, imaging, and vitals patient is hemodynamically stable for discharge to [facility] facility. He will need to f/u with PMD, Podiatry, Pug Mill Operator as outpatient. He had a midline in place so he can continue with IV antibiotics (Rocephin) for a total of 21 days. He will also be discharged on atenolol, verapamil, amiodarone, eliquis for Afib given CHADVASC 2. Patient is stable for discharge to [facility] facility. Discharge Exam - Head Exam Head Exam: ATRAUMATIC, NORMOCEPHALIC - Eye Exam Eye Exam: EOMI, Normal appearance Pupil Exam: NORMAL ACCOMODATION Additional comments: Chronic lazy eye. - ENT Exam ENT Exam: Normal Exam - Neck Exam Neck exam: Normal Inspection - Respiratory Exam Respiratory Exam: Clear to PA & Lateral. absent: Rales, Rhonchi, Wheezes - Cardiovascular Exam Cardiovascular Exam: RRR, +S1, +S2 - GI/Abdominal Exam GI & Abdominal Exam: Normal Bowel Sounds, Soft. absent: Rebound, Tenderness - Extremities Exam Additional comments: Bilateral scaly dermatitis. Dressing in place from podiatry. Ulcers - improved infection since initial admission. - Neurological Exam Neurological exam: Alert, CN II-XII Intact, Oriented x3 - Psychiatric Exam Psychiatric exam: Normal Affect, Normal Mood - Skin Skin Exam: Dry, Intact, Normal Color, Warm Discharge Plan - Discharge Medications Prescriptions: cefTRIAXone [Rocephin] 2 gm IVPB DAILY 21 Days #21 vial Clotrimazole/Betamethasone [Lotrisone] 0 gm TOP BID 30 Days tube Divalproex [Depakote DR(*BID*)] 500 mg PO BID 30 Days tcp Ointment Base [Hydrophor Oint] 0 gm TOP Q6H 30 Days jar - Follow Up Plan Condition: GUARDED Disposition: REHAB FACILITY/REHAB UNIT Instructions: Atrial Fibrillation (DC), Seizures, Adult (DC), Apixaban, Cellulitis (ED) Additional Instructions: Please follow up with your Primary Care Doctor, Dr Edgar Burch at [phone]. [address] [place] [address] He is the primary care doctor assigned by your medicaid insurance. Please follow-up with your process engineer within 7 days of discharge, Dr Hernandez, for your continuing foot care. Follow up with food counter attendant, Dr Yu, for your irregular heart rate and blood thinner. You were diagnosed with an abnormal heart rhythm called atrial fibrillation - please follow-up with a food counter attendant after you are discharged from rehab. You are being discharged on new medications: - Rocephin 2g IV daily for a total of 21 days through your midline IV access (this is an antibiotic -> last administration date: 02/17/19) - Lotrisone 15g topical cream twice a day for leg ulcers - Hydrophor ointment every 6 hours for leg ulcers - Depakote 500mg twice a day (for seizures) - Atenolol 12.5mg twice daily at 10AM and 6PM (this is to control your heart rhythm) - Verapamil 40mg three times daily at 10AM, 2PM and 6PM (this is to control your heart rhythm) - Amiodarone 200mg daily at 10AM (this is to control your heart rhythm) - Eliquis 2.5mg twice daily at 10AM and 6PM (this is a blood thinner to protect you from clots due to your abnormal heart rhythm) IMPORTANT: Please have the nurse remove the midline IV after last antibiotic dose on 02/17/19. Physical therapy recommends Home Physical Therapy. Dressing instructions: Wounds cleansed with sterile saline, Scales cleaned with sterile wipes and dressed with lotrisone, maxorb, xeroform, dry sterile dressing. Robert applied to the LLE. As per podiatry recommendation, dressing changes are to be done in the following: - Left leg dressing change every 2-3 days - Right leg dressing change once a week Please return to the nearest emergency department if your symptoms worsen or reoccur. Referrals: Shantal Hernandez DPM [Staff Provider] - 7 Days Edgar Burch MD [Staff Provider] - Dena Yu MD [Staff Provider] - <Dena Lubin - Last Filed: 01/30/19 10:54> Provider - Provider Date of Admission: 01/21/19 16:48 Attending physician: eDna Lubin MD Primary care physician: NO FAMILY PROVIDER Consults: 01/21/19 13:45 Psychiatry Consult Stat Comment: Consulting Provider: Odilia Duque Consulting Physician: Odilia Duque Reason for Consult: mental capacity, hx schizophrenia 01/21/19 16:51 Consult [Physician Consult] Routine Comment: Consulting Provider: Gianluca Turner Consulting Physician: Gianluca Turner Reason for Consult: seizures 01/21/19 17:20 Physician Consult Routine Comment: Consulting Provider: Lul Orona Consulting Physician: Lul Orona Reason for Consult: cellulitis 01/21/19 17:21 Podiatry Consult Routine Comment: Consulting Provider: Shantal Hernandez Consulting Physician: Shantal Hernandez Reason for Consult: cellulitis 01/21/19 19:25 Case Management Referral Routine Comment: Physician Instructions: Reason For Exam: PT needs assistance at home. 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 01/26/19 16:53 Discharge Planning [Case Management Referral] Routine Comment: Physician Instructions: Reason For Exam: Need to set up infusion company Reason for Referral: [facility] Eval 01/26/19 18:25 Cardiology Consult Routine Comment: Consulting Provider: Dena Yu Consulting Physician: Dena Yu Reason for Consult: new-onset AFib 01/27/19 06:04 Nursing Referral for Wound Care Routine Comment: Physician Instructions: Reason For Exam: protocol Hospital Course - Lab Results Lab Results: Micro Results 01/24/19 11:20 Blood Blood Culture - Final NO GROWTH AFTER 5 DAYS 01/24/19 11:20 Blood Gram Stain - Final TEST NOT PERFORMED 01/24/19 11:00 Blood Blood Culture - Final NO GROWTH AFTER 5 DAYS 01/21/19 21:00 Leg - Right Gram Stain - Final 01/21/19 21:00 Leg - Right Wound Culture - Final Providencia Rettgeri Morganella Morganii Staphylococcus Aureus 01/22/19 13:50 Leg - Left Gram Stain - Final 01/22/19 13:50 Leg - Left Wound Culture - Final Providencia Rettgeri Morganella Morganii Staphylococcus Aureus 01/21/19 15:30 Blood-Venous S.aureus & Coag-Neg Staph PNA FISH - Final 01/21/19 15:30 Blood-Venous Blood Culture - Final Coagulase Neg Staphylococcus 01/21/19 15:30 Blood-Venous Gram Stain - Final 01/21/19 15:00 Blood-Venous Blood Culture - Final Streptococcus Sangius I 01/21/19 15:00 Blood-Venous Gram Stain - Final Most Recent Lab Values WBC 6.5 10^3/uL (4.5-11.0) 01/29/19 06:00 RBC 4.26 10^6/uL (3.5-6.1) 01/29/19 06:00 Hgb 13.1 g/dL (14.0-18.0) L 01/29/19 06:00 Hct 41.2 % (42.0-52.0) L 01/29/19 06:00 MCV 96.7 fl (80.0-105.0) 01/29/19 06:00 MCH 30.8 pg (25.0-35.0) 01/29/19 06:00 MCHC 31.8 g/dl (31.0-37.0) 01/29/19 06:00 RDW 15.9 % (11.5-14.5) H 01/29/19 06:00 Plt Count 387 10^3/uL (120.0-450.0) 01/29/19 06:00 MPV 9.8 fl (7.0-11.0) 01/29/19 06:00 Neut % (Auto) 60.4 % (50.0-68.0) 01/25/19 05:30 Lymph % (Auto) 17.5 % (22.0-35.0) L 01/25/19 05:30 [place] % (Auto) 19.0 % (1.0-6.0) H 01/25/19 05:30 Eos % (Auto) 2.9 % (1.5-5.0) 01/25/19 05:30 Baso % (Auto) 0.2 % (0.0-3.0) 01/25/19 05:30 Lymph # (Auto) 1.6 (1.2-3.4) 01/25/19 05:30 [place] # (Auto) 1.8 (0.1-0.6) H 01/25/19 05:30 Eos # (Auto) 0.3 (0.0-0.7) 01/25/19 05:30 Baso # (Auto) 0.02 K/mm3 (0.0-2.0) 01/25/19 05:30 Absolute Neuts (auto) 5.56 (1.4-6.5) 01/25/19 05:30 ESR 112 mm/hr (0.00-15.0) H 01/24/19 06:30 Sodium 142 mmol/L (132-148) 01/29/19 06:00 Potassium 4.5 mmol/L (3.6-5.0) 01/29/19 06:00 Chloride 109 mmol/L (98-107) H 01/29/19 06:00 Carbon Dioxide 29 mmol/L (21-33) 01/29/19 06:00 Anion Gap 9 (10-20) L 01/29/19 06:00 BUN 26 mg/dL (7-21) H 01/29/19 06:00 Creatinine 1.1 mg/dl (0.8-1.5) 01/29/19 06:00 Est GFR ( Amer) > 60 01/29/19 06:00 Est GFR (Non-Af Amer) > 60 01/29/19 06:00 Random Glucose 74 mg/dL (70-110) 01/29/19 06:00 Hemoglobin A1c 5.5 % (4.2-6.5) 01/23/19 07:00 Calcium 9.0 mg/dL (8.4-10.5) 01/29/19 06:00 Phosphorus 4.4 mg/dL (2.5-4.5) 01/26/19 18:40 Magnesium 2.1 mg/dL (1.7-2.2) 01/26/19 18:40 Total Bilirubin 0.4 mg/dL (0.2-1.3) 01/29/19 06:00 AST 59 U/L (17-59) D 01/29/19 06:00 ALT 37 U/L (7-56) 01/29/19 06:00 Alkaline Phosphatase 134 U/L (38-126) H 01/29/19 06:00 Total Creatine Kinase 41 U/L (35-230) 01/21/19 15:00 Troponin I 0.07 ng/mL 01/27/19 06:15 C-Reactive Protein 51.40 mg/L (0.0-9.9) H 01/21/19 15:00 Total Protein 8.3 g/dL (5.8-8.3) 01/29/19 06:00 Albumin 3.1 g/dL (3.0-4.8) 01/29/19 06:00 Globulin 5.2 gm/dL 01/29/19 06:00 Albumin/Globulin Ratio 0.6 (1.1-1.8) L 01/29/19 06:00 Free T4 2.49 ng/dL (0.78-2.19) H 01/27/19 06:15 Total T3 1.29 ng/mL (0.97-1.69) 01/27/19 06:15 TSH 3rd Generation 1.47 mIU/mL (0.46-4.68) 01/26/19 18:40 Vancomycin Trough 12.9 ug/mL (5.0-10.0) H 01/25/19 09:00 Urine Opiates Screen Negative (NEGATIVE) 01/21/19 17:21 Urine Methadone Screen Negative (NEGATIVE) 01/21/19 17:21 Ur Barbiturates Screen Negative (NEGATIVE) 01/21/19 17:21 Ur Phencyclidine Scrn Negative (NEGATIVE) 01/21/19 17:21 Ur Amphetamines Screen Negative (NEGATIVE) 01/21/19 17:21 U Benzodiazepines Scrn Negative (NEGATIVE) 01/21/19 17:21 U Oth Cocaine Metabols Negative (NEGATIVE) 01/21/19 17:21 U Cannabinoids Screen Negative (NEGATIVE) 01/21/19 17:21 Alcohol, Quantitative < 10 mg/dL (0-10) 01/21/19 15:00 HIV 1&2 Ag/Ab, 4th Gen Nonreactive (Nonreactive) 01/23/19 07:00 Attending/Attestation - Attestation I have personally seen and examined this patient.: Yes I have fully participated in the care of the patient.: Yes I have reviewed all pertinent clinical information, including history, physical exam and plan: Yes Notes (Text): 01/30/19 10:50 Medical record note made by the resident after discussion with my direction and input after the patient was personally seen and examined by me. I have reviewed the chart and agree that the record accurately reflects by personal performance of the history, physical exam, data review, and medical decision-making, in the course for the patient. I have also personally directed the plan of care. 58 year old male with past medical history of schizophrenia, seizure, psoriasis and medication noncompliance who presented after witnessed seizure at home. Neurology is following for seizure disorder and started on depakote. He was also found to have extensive bilateral lower extremity ulcerations and cellulitis overlying chronic chronic venous statis. Bilateral tibula/fibula xrays showed soft tissue swelling. Lower extremity doppler was negative for DVT. Arterial doppler was also normal. Wound culture is growing Providencia Rettgeri, Morganella Morganii, and gram positive cocc. BCx grew coagulase negative staph likely contaminated.Repeat blood cul;tures are negative.Echo is negative for any vegetation.ID has recommended total 4 weeks of IV Ceftriaxone. Last day of antibiotics is 02/17/19.Patient will need weekly CBC,CMP,CRP while on antibiotics Patient also went to AF with RVR.Heart rate is controlled.Patient is converted back to NSR, He is on Atenolol/Verapamil and Amiodrone as recommended by Cardiology .He has also been started on anticoagulation with Apixiban.The risk and benefit of anticoagulation was discussed in detail with the patient and family. Management plan was discussed in detail with patient. Education was provided 01/30/19 10:54
[2019-01-29 17:01] VITALS: BP 117/72
[2019-01-29 18:05] VITALS: PULSE 59; TEMP 97.2
--- NOTE | 2019-01-29 19:22 | CARD ---
APPROVED REPORT Date of service: 01/29/2019 EKG Measurement Heart [id number] <Conclusion> Normal sinus rhythm Minimal voltage criteria for LVH, may be normal variant Poor R wave progression in Precordial leads Abnormal ECG
--- NOTE | 2019-01-30 00:27 | PN ---
DATE: 01/29/2019 SUBJECTIVE: The patient is seen earlier this morning today in room 260, bed 2. No fevers. No chills. No nausea. No vomiting. PHYSICAL EXAMINATION: VITAL SIGNS: Temperature is 97, blood pressure is 117/70, respiratory rate is 16. HEENT: Unremarkable. NECK: Supple. LUNGS: Decreased breath sounds. HEART: Normal S1 and S2. ABDOMEN: Soft and nontender. LABORATORY DATA: Labs are reviewed. ASSESSMENT AND PLAN: This is a 58-year-old male, seen earlier today with history of psoriasis, seizures, morbid obesity with body mass index of 40 with schizophrenia, was admitted with Streptococcus sanguis bacteremia, coagulase-negative bacteremia, negative echocardiogram, elevated inflammatory markers with day #6 of 28 days of ceftriaxone with weekly complete blood cell count, SMA-18, sedimentation rate, and C-reactive protein once weekly. Case discussed with . Hasmukh Lopez MD
== END 2019-01-29 21:13 | DRG 532 ==
LOC: ED 11:53 → ERH 16:48 → 3RNO 18:46 → 2RNO 01-26 20:46
PROVIDERS: ADMIT Hospitalist; ATTEND Internal Medicine
PROC: 05H633Z Insertion of Infusion Device into Left Subclavian Vein, Percutaneous Approach (ICD-10-PCS; principal; 2019-01-26)
DX: G40.409 Other generalized epilepsy and epileptic syndromes, not intractable, without status epilepticus (principal); R78.81 Bacteremia; L03.115 Cellulitis of right lower limb; L03.116 Cellulitis of left lower limb; L97.529 Non-pressure chronic ulcer of other part of left foot with unspecified severity; L97.919 Non-pressure chronic ulcer of unspecified part of right lower leg with unspecified severity; I08.2 Rheumatic disorders of both aortic and tricuspid valves; F20.9 Schizophrenia, unspecified; L40.9 Psoriasis, unspecified; B95.61 Methicillin susceptible Staphylococcus aureus infection as the cause of diseases classified elsewhere; B96.89 Other specified bacterial agents as the cause of diseases classified elsewhere; B95.4 Other streptococcus as the cause of diseases classified elsewhere; K42.9 Umbilical hernia without obstruction or gangrene; I48.91 Unspecified atrial fibrillation; I87.8 Other specified disorders of veins; E66.01 Morbid (severe) obesity due to excess calories; Z68.41 Body mass index [BMI] 40.0-44.9, adult; Z91.14 Patient's other noncompliance with medication regimen